=== PATIENT | male | born 1955 | race Caucasian/White ===

== ENCOUNTER 2022-08-29 10:20 | Outpatient (CLI) | payer MEDICARE, OTHER, SELFPAY ==
--- OUTSIDE RECORDS SUMMARY | 2022-08-29 10:22 | XMS_ITS | Encounter Summary ---
:1955 Author Care Team Providers Name Role Phone Chetanumesh Khadar AVALOS Primary Care Provider [phone] Reason for Visit Follow up - Review Pathology Results; Te sandra Visit Assessment and Plan Assessment Note Of note a total of 20 minutes was spent : preparing to see the patient by reviewing records, images, and laboratory data; obtaining/reviewing separately obtained history; performing physical examination , counseling and educating patient/famil y/caregiver; ordering appropriate medications, labs, imaging or procedures; documenting the clinical encounter; and coordination of care. 1. Raised prostate specific antigen - Pathology revealed single core of ASA P (all others benign) - No issues with biopsy - Recommend active surveillance protocol with PSA Q6 months, Prostate MRI Q18 months, and Prostate biopsy Q3-5 years. Discussion Note: None recorded.Patient educational handouts: No information available. Plan of Care Reminders Provider Appointments Established 10 on or around 12/27/2022 Chet Padron MD Lab None recorded. ? ? Referral None recorded. ? ? Procedures None recorded. ? ? Surgeries None recorded. ? ? Imaging None recorded. ? ? Medications Name Start Date ? ? aspirin ? atorvastatin ? atorvastatin 40 mg tablet ? TAKE ONE TABLET BY MOUTH AT BEDTIME LABS/PHYSICAL DUE FOR REFILLS azithromycin 250 mg tablet ? TAKE TWO TABLETS BY MOUTH ONE DOSE O N THE FIRST DAY, THEN TAKE ONE DAILY THEREAFTER. benzonatate 100 mg capsule ? TAKE ONE CAPSULE BY MOUTH THREE TIMES A DAY NEEDED ceftriaxone 1 gram solution for injection ? Take 1 g by injection route. ciprofloxacin 500 mg tablet ? TAKE ONE TABLET BY MOUTH TWICE A DAY codeine 10 mg-guaifenesin 100 mg/5 mL oral liquid ? TAKE 5-10 MLS BY MOUTH EVERY 6 HOURS diazepam 10 mg tablet ? TAKE 1 TABLET BY MOUTH 1 HOUR PRIOR TO MRI, DO NOT DR COMBS AFTER TAKING diazepam 2 mg tablet ? TAKE 1 TABLET BY MOUTH ONE HOUR PRIOR T O PROCEDURE, MAY TAKE ADDITIONAL TABLET IF NEEDED. hydrocodone 5 mg-acetaminophen 325 mg tablet ? TAKE ONE TO TWO TABLETS BY MOUTH EVERY 4 HOURS NEE DED [facility] COVID-19 Antigen Rapid Home Test kit ? USE DIRECTED ipratropium bromide 42 mcg (0.06 %) nasal spray ? INHALE 2 SPRAYS INTO BOTH NOSTRILS 3 TIMES A DAY lisinopril ? lisinopril 10 mg tablet ? TAKE ONE TABLET BY MOUTH EVERY DAY, APPOINTMENT DUE I N JUNE methylprednisolone 4 mg tablets in a dose pack ? TAKE DIRECTED minocycline ? minocycline 100 mg capsule ? TAKE ONE CAPSULE BY MOUTH TWICE A DAY . omeprazole ? omeprazole 20 mg capsule,delayed release ? ondansetron 4 mg disintegrating tablet ? DISSOLVE ONE TABLET BY MOUTH EVERY 6 HOURS NEEDED ondansetron HCl 4 mg tablet ? TAKE ONE TABLET BY MOUTH EVERY 6 HOURS NEEDED NAUS EA AND VOMITING prednisone 20 mg tablet ? TAKE TWO TABLETS BY MOUTH ONCE DAILY WITH A MEAL FOR 5 DAYS tamsulosin 0.4 mg capsule ? TAKE ONE CAPSULE BY MOUTH EVERY DAY Medications Administered None recorded. Vitals Height Weight BMI 5 ft 8 in 235 lbs 35.7 kg/m2 Results Lab Results None recorded. Allergies Code Code System Name Reaction Severity Onset 330347 RxNorm Bee Pollen ? ? ? NKDA ? ? ? Problems Name Status Onset Date Source ? 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 08/13/2012 Biopsy of Prostate Information not david collier Notes: 08/13/2012 - BIOPSY OF PROSTATE 08/13/2012 N Block Other Peripheral Information not available Notes: 08/13/2012 - N BLOCK OTHER SAMUEL PHERAL 07/26/2012 Us Urine Capacity Measure Information no t available Notes: 07/26/2012 - US URINE CAPACITY MEASURE ? Hernia Repair Information not david labveena Vaccine List None recorded. Social History Tobacco Smoking Status Former Smoker What was the date of your most recent tobacco 06/28/2022 screening? Do you or have you ever used e-cigarettes or Never used elec tronic cigarettes vape? Marital status Race White Functional Status Unknown. Past Encounters Encounter Date Diagnosis Provider 06/28/2022 Raised Prostate Specific Antigen Chet Padron MD: [address] [place] [address], Ph. 06/14/2022 Raised Prostate Specific Antigen Chet Padron MD: [address] [place] [address], Ph. History of Present Illness Note: <p>New patient referred for elevated PSA of 4.13 on 07/21/2020 at [facility]. His prior PSA was 2.97 in 2019. He was previously seen by Dr. Sami Silva in 2011 for PSA of 3.7, up from 1.65 in 2010. He had a 12 core biopsy that was benign at that time, prostate measured 23 g. He was noted to have a right base nodule on exam. He has no family history of prostate cancer. He had a right inguinal hernia repair with mesh but no prior abdominal surgeries. No bothersome urinary symptoms, nocturia x1-2.</p><div>06/14/2022 Vito:</div><div>Here for prostate biopsy for elevated PSA and elevated ExoDx. All questions answered.</div><div>
</div><div>06/28/2022:</div><div>Here for pathology review following prostate biopsy.</di v><div>
</div><div>
</div><div>This visit was conducted by telephone due to the COVID-19 crisis. Prior to conducting our telephone visit, the patient was apprised of the risks, benefits and alternatives to telephone visits including but not limited topoor audio quality, interrupted visits due to technological limitations, delays in medical evaluation and treatment due to deficiencies or failures of equipment, failure of security protocols resultingin a breach of privacy of personal medical information and a lack of access to complete medical records resulting in not fully informed decisions. Also, because of the COVID-19 pandemic, it was not possible for the patient to sign the privacy regulations, HIPAA release and assignment of benefits forms. The patient was given the opportunity to ask questions about these policies and gave verbal acknowle dgement and approval of these policies as well as to hold this meeting by telephone. Lastly, the patient agreed to allowing their medication history to be pulled from a national pharmacy database to facilitate and coordinate their care.</div><div>
</div> Review of Systems ? Comprehensive General Adult ROS Reported By: Patient Constitutional: Constitutional: no fever, no chills Eyes: Eyes: no dry eyes, no vision change, no irritation Endocrine: Endocrine: no fatigue, no in creased thirst Cardiovascular: Cardiovascular: no chest matt n, no palpitations Integumentary: Skin: no rashes, no change i n skin color Respiratory: Respiratory: no cough, no sh ortness of breath, wheezing Gastrointestinal: Gastrointestinal: no abdomin al pain, no nausea, no vomiting, no constipation, no GERD Musculoskeletal: Musculoskeletal: no neck matt n, no back pain Neurologic: Neurologic: no tremor, no di zziness, no numbness, no headaches Genitourinary: Genitourinary: no incontinen ce, no difficulty urinating ENMT: Ears: no ear pain. Mouth/Thr oat: no sore throat Allergic/Immunologic: Allergy/Immunologic: no itch ing, no hives Hematologic/Lymphatic: Hematologic/Lymphatic no swo llen glands, no excessive bleeding Psychiatric: Psych: no hallucinations, (n ormal) sleep disturbances: mismatch of sleep / wake justine edule with lifestyle needs Physical Exam None recorded.
--- OUTSIDE RECORDS SUMMARY | 2022-08-29 10:22 | XMS_ITS ---
:1955 Author Care Team Providers Name Role Phone JUAN JOSE ONEIDA AVALOS Primary Care Provider [phone] Allergies Code Code System Name Reaction Severity Status Onset 521027 RxNorm Bee Pollen ? ? Active ? NKDA ? Medications Name Status Start Date Stop Date ? ? aspirin Active ? Not available atorvastatin Active ? Not available atorvastatin 40 mg tablet Active ? Not av ailable azithromycin 250 mg tablet Active ? Not a vailable TAKE TWO TABLETS BY MOUTH ONE DOSE O N THE FIRST DAY, THEN TAKE ONE DAILY THEREAFTER. benzonatate 100 mg capsule Active ? Not a vailable TAKE ONE CAPSULE BY MOUTH THREE TIMES A DAY NEEDED ceftriaxone 1 gram solution for injection Active ? Not available Take 1 g by injection route. ciprofloxacin 500 mg tablet Active ? Not available TAKE ONE TABLET BY MOUTH TWICE A DAY codeine 10 mg-guaifenesin 100 mg/5 mL oral liquid Active ? Not available TAKE 5-10 MLS BY MOUTH EVERY 6 HOURS diazepam 10 mg tablet Active ? Not availa ble TAKE 1 TABLET BY MOUTH 1 HOUR PRIOR TO MRI, DO NOT DRIVE AFTER TAKING diazepam 2 mg tablet Active ? Not availab le TAKE 1 TABLET BY MOUTH ONE HOUR PRIOR T O PROCEDURE, MAY TAKE ADDITIONAL TABLET IF NEEDED. hydrocodone 5 mg-acetaminophen 325 mg tablet Active ? Not available TAKE ONE TO TWO TABLETS BY MOUTH EVERY 4 HOURS NEEDED [facility] COVID-19 Antigen Rapid Home Test kit Active ? Not available USE DIRECTED ipratropium bromide 42 mcg (0.06 %) nasal spray Active ? Not available INHALE 2 SPRAYS INTO BOTH NOSTRILS 3 TIMES A DAY lisinopril Active ? Not available lisinopril 10 mg tablet Active ? Not avai lable methylprednisolone 4 mg tablets in a dose pack Active ? Not available TAKE DIRECTED minocycline Active ? Not available minocycline 100 mg capsule Active ? Not a vailable omeprazole Active ? Not available omeprazole 20 mg capsule,delayed release Active ? Not available ondansetron 4 mg disintegrating tablet Active ? Not available DISSOLVE ONE TABLET BY MOUTH EVERY 6 HOURS NEEDED ondansetron HCl 4 mg tablet Active ? Not available TAKE ONE TABLET BY MOUTH EVERY 6 HOURS NEEDED NAUSEA AND VOM ITING prednisone 20 mg tablet Active ? Not avai lable TAKE TWO TABLETS BY MOUTH ONCE DAILY WITH A MEAL FOR 5 DAYS tamsulosin 0.4 mg capsule Active ? Not av ailable TAKE ONE CAPSULE BY MOUTH EVERY DAY Problems Name Status Onset Date Source ? 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 08/13/2012 Biopsy of Prostate Information not avai lable Notes: 08/13/2012 - BIOPSY OF PROSTATE 08/13/2012 N Block Other Peripheral Information not available Notes: 08/13/2012 - N BLOCK OTHER SAMUEL PHERAL 07/26/2012 Us Urine Capacity Measure Information no t available Notes: 07/26/2012 - US URINE CAPACITY MEASURE ? Hernia Repair Information not avai lable 08/25/2020 MRI, Prostate, W/wo Contrast [facility] [address] [place] [address] (Work Place) Results Lab Results Date Name Specimen Result Interpretation Description Value Range Status Address ? 08/27/2020 PSA, Serum or Plasma ? No observation recor ded. ? ? ? 08/27/2020 PSA, Serum or Plasma ? No observation recor ded. ? ? ? Past Encounters Encounter Date Diagnosis Provider 06/28/2022 Raised Prostate Specific Antigen Chet Padron MD: [address] [place] [address], Ph. 06/14/2022 Raised Prostate Specific Antigen Chet Padron MD: [address] [place] [address], Ph. 04/24/2022 Raised Prostate Specific Antigen Chet Padron MD: [address] [place] [address], Ph. Social History Tobacco Smoking Status Former Smoker Vaccine List None recorded. Plan of Care Patient Instructions Follow up on ExoDx with Dr. Padron Reminders Provider Appointments None recorded. ? ? Lab None recorded. ? ? Referral None recorded. ? ? Procedures None recorded. ? ? Surgeries None recorded. ? ? Imaging None recorded. ? ? Vitals 06/28/2022 04:00PM ESTABLISHED PHONE VISIT 20 Height Weight BMI 5 ft 8 in 235 lbs 35.7 kg/m2 08/23/2020 09:00AM NEW PATIENT 20 Height Weight BMI 5 ft 8 in 235 lbs 35.7 kg/m2
--- OUTSIDE RECORDS SUMMARY | 2022-08-29 10:22 | XMS_ITS | Clinical Summary ---
:1955 Author Organization [employer] [place] [address] Care Team Providers Name Role Phone Parmjit Hawkins Unavailable Luis Farmer MD Primary Care Provider [phone] Allergies Active Allergy Reactions Severity Noted Date Comments Bee Pollen Anaphylaxis 04/12/2006 Bee sting Medications Medication Sig Dispensed Refills Start Date End Date Status MULTIVITAMIN ORAL qd 0 Ac tive ASPIRIN 81 MG CHEWABLE chew 1 tablet 0 Active TAB (81mg) by oral route once daily ergocalciferol (VITAMIN take 2 1/2 0 09/15/2009 Active D) 400 unit tablet tablets by oral route once daily folic acid 400 mcg Take 1 tablet 0 08/23/2011 Active tablet by mouth once daily. tadalafil (CIALIS) 5 mg Take 1 tablet 30 tablet 6 02/22/2016 Active tabletIndications: by mouth once Erectile dysfunction, daily if needed unspecified erectile for Erectile dysfunction type Dysfunction. Take 30 minutes before sexual activity. omeprazole (PRILOSEC) Take 1 capsule 90 capsule 2 02/22/2016 Active 40 mg Delayed-Release by mouth once capsuleIndications: daily. Gastroesophageal reflux disease without esophagitis fluticasone (50 mcg per Inhale 1 [place] 1 Bottle 12 10/09/2016 Active actuation) nasal into both solution nostrils once (FLONASE)Indications: daily. At Seasonal allergic bedtime rhinitis, unspecified allergic rhinitis trigger minocycline (MINOCIN) TAKE ONE 180 capsule 0 02/19/2019 Active 100 mg CAPSULE BY capsuleIndications: MOUTH TWICE A Acne, unspecified acne DAY type lisinopril (PRINIVIL; TAKE ONE TABLET 30 tablet 0 03/11/2019 Active ZESTRIL) 10 mg BY MOUTH EVERY tabletIndications: HTN DAY (hypertension) atorvastatin (LIPITOR) TAKE ONE TABLET 30 tablet 0 04/01/2019 Active 40 mg BY MOUTH EVERY tabletIndications: DAY Mixed hyperlipidemia ipratropium (ATROVENT Inhale 2 Sprays 15 mL 0 11/23/2019 Active NASAL) 42 mcg (0.06 %) into both nasal sprayIndications: nostrils 3 Viral URI with cough, times daily. PND (post-nasal drip) ondansetron (ZOFRAN) 4 Take 10 mL by 250 mL 0 02/25/2020 Active mg/5 mL oral solution mouth every 8 hours if needed for nausea for 5-7 days Active Problems Problem Noted Date Elevated glucose 02/09/2017 Hyperkalemia 02/09/2017 Acne vulgaris 10/09/2016 Herpes labialis 10/09/2016 Vitamin D deficiency 11/20/2012 Inguinal hernia 11/20/2012 Numbness and tingling in left arm 06/11/2012 Erectile dysfunction 08/23/2011 HTN (hypertension) 11/08/2009 Mixed hyperlipidemia 02/02/2009 Overview: The 10-year ASCVD risk score (Ellsworth BIB Jr , et al., 2013) is: 10.8% Values used to calculate the score: Age: 61 years Sex: Male Is Non- : No Diabetic: No Tobacco smoker: No Systolic Blood Pressure: 118 mmHg Is BP treated: Yes HDL Cholesterol: 43 mg/dL Total Cholesterol: 226 mg/dL Adjustment disorder with depressed mood 12/16/2008 Need for prophylactic vaccination with combined 2008 igxirvitum-uxvwmfn-tiewelepu (DTP) vaccine Mole (skin) 12/16/2008 Resolved Problems Problem Noted Date Resolved Date Screening PSA (prostate specific antigen) 12/16/2008 02/09/2017 Tobacco use disorder 04/12/2006 11/08/2009 Encounters Date Type Specialty Care Team Description 07/10/2022 Orders Only Scanner <No scans attac hed> from Last 3 Months Immunizations Name Administration Dates Next Due Influenza A (H1N1), Inactivated (Age >=3 09/15/2009 Years) Influenza, IIV3 (Age >=3 years) 06/11/2012, 06/16/2011, 05/25 Influenza, IIV4 10/09/2016 Pneumococcal Poly,23-Valent (Pneumovax) 02/05/2004 Td (Age >=7 Years) 02/05/2004 Tdap 12/16/2008 Family History Medical History Relation Name Comments Hyperlipidemia Father Hypertension Father Stroke Father Cancer Maternal Grandmother Cancer Mother leukemia Stroke Mother Other Other Diabetes on mate rnal side Cancer Paternal Grandmother Relation Name Status Comments Father (Age 77) Maternal Grandmother Mother (Age 72) Other Paternal Grandmother Social History Tobacco Use Types Packs/Day Years Used Date Former Smoker Cigarettes 1 09/24/1967 - 0 02/10/2009 Smokeless Tobacco: Never Used Tobacco Cessation: Counseling Given: Yes Alcohol Use Standard Drinks/Week Comments Yes 1.7 (1 standard drink = 0.6 oz pure alco hol) social Sex Assigned at Date Recorded Not on file Obstetrics History Last Filed Vital Signs Vital Sign Reading Time Taken Comments Blood Pressure 137/83 04/05/2022 8:54 AM CDT Pulse 61 04/05/2022 8:54 AM CDT Temperature 36.4 ??C (97.6 ??F) 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 Height 172.7 cm (5' 8) 02/01/2018 1:12 PM CDT Body Mass Index 33.86 02/01/2018 1:12 PM CDT Plan of Treatment Health Maintenance Due Date Last Done Comments HIV for age 15-65 1971 Hepatitis C screening for age 1108/18/1974 18-79 Pneumococcal series for age 65+ (2 02/04/2005 02/05/2004 - PCV) Zoster (shingles) series for age 1108/18/2006 50+ (1 of 2) AAA screening age 55-77 2011 Tetanus booster 12/16/2018 12/16/2008, 02/05/2004 BMI (ht and wt on same day) for 02/01/2019 02/01/2018, 08/0 03/2017, age 18+ 10/09/2016, Additional history exists Depression screening for age 12+ 02/01/2019 02/01/2018, Medicare Wellness for age 65+ 2021 COVID-19 vaccine series (4 - 10/02/2021 08/07/2021, 021, Booster for Moderna series) 11/24/2020 Influenza for age 65+ 05/25/2022 10/09/2016, 06/11/2012, 06/16/2011, Additional history exists Lipids for age 45-75 02/01/2023 02/01/2018, 04/30/2017, 02/08/2017, Additional history exists Colonoscopy through age 75 01/12/2025 01/12/2015, 9 Tdap Completed 12/16/2008 Procedures Procedure Name Priority Date/Time Associated Diagnosis Comme nts SCAN 07/10/2022 12:00 AM Results for this CORRESP-LABORATORY CDT procedure are in RESULTS the results section. from Last 3 Months Results SCAN CORRESP-LABORATORY RESULTS (07/10/2022 12:00 AM CDT) Narrative This result has an attachment that is no t available. Scanner OTHER from Last 3 Months Insurance Payer Benefit Plan / Subscriber ID Effective Dates Phone Addre ss Type Group MEDICARE - PB MEDICARE PB [id number] 2021-Presen ATT N: CLAIMS USE ONLY ONLY t [address] [place] [address] [facility] [employer] 09/24/1978 [address] [employer] [place] ES[place]EN (Home) [id number] ATTN A/P [phone] [address] [address] (Work) [place] [address] Advance Directives Latest Code Status on File Code Status Date Activated Date Inactivated Comments Full Code 01/18/2015 6:27 AM 01/18/2015 1:59 PM Care Teams Disease Case Manager Relationship Specialty Start Date End Date Luis Farmer MD PCP - General Family Practice 08/10/[address] [place] [address] Parmjit Hawkins Dermatology Dermatology 11/04/[address] [place] [address] [address] [place], [place] [id number]
--- OUTSIDE RECORDS SUMMARY | 2022-08-29 10:23 | XMS_ITS | Encounter Summary ---
:1955 Author Care Team Providers Name Role Phone Lauren AVALOS Primary Care Provider [phone] Reason for Visit TRUS biopsy Assessment and Plan 1. Raised prostate specific antigen - Now s/p TRUS biopsy - Phone visit in 2 weeks for pathology d iscussion - We reviewed the limitations of this in cluding under sampling which may lead to under diagnosis. We also reviewed the risks most notably bleeding to a degree enough to require intervention (1-2.5%) and infection which may result in hospitali zation (1-3%). We also discussed expected after effects of biopsy including temporary hematuria, blood per rectum, and hematospermia which are considered normal after this procedure. ? ceftriaxone 1 gram solution for injec tion Discussion Note: None recorded.Patient educational handouts: No [...] BY MOUTH EVERY DAY, APPOINTMENT DUE I June methylprednisolone 4 mg tablets in a dose [...] CAPSULE BY MOUTH EVERY DAY Medications Administered Name Date ? ? ceftriaxone 1 gram solution for injection 2022-06-14 T15:33:35 Take 1 g by injection route. Notes: BS Vitals None recorded. Results Lab Results None recorded. Allergies Code Code System Name Reaction Severity Onset 208247 RxNorm Bee Pollen ? ? ? NKDA [...] MEASURE ? Hernia Repair Information not david collier Vaccine List None recorded. Social History Tobacco Smoking Status Former Smoker What was the date of your most recent tobacco 06/28/2022 screening? Do you or have you ever used e-cigarettes or Never used elec tronic cigarettes vape? Marital status Race White Functional Status Unknown. Past Encounters Encounter Date Diagnosis Provider 06/14/2022 Raised Prostate Specific Antigen Chet Padron MD: [address] [facility] [place] [address], Ph. History of Present Illness Note: <p>New patient referred for elevated PSA of 4.13 on 07/21/2020 at [facility]. His prior PSA was 2.97 in 2019. [...] elevated PSA and elevated ExoDx. All questions answered.</div> Review of Systems None recorded. Physical Exam None recorded.
[2022-08-29 14:11] LABS: Albumin* 4.5 g/dL (3.3-5.0); Chloride* 106 mmol/L (96-114)
[2022-08-29 14:12] LABS: Potassium* 5.1 mmol/L (3.6-5.1); Sodium* 141 mmol/L (135-149)
[2022-08-29 14:14] LABS: Alkaline Phosphatase* 90 U/L (40-150); Aspartate Amino Transferase* 38 U/L (12-35); Bilirubin Total* 0.6 mg/dL (0.1-1.5); Blood Urea Nitrogen* 23 mg/dL (7-30); Carbon Dioxide* 28 mmol/L (20-32); Cholesterol* 211 mg/dL (90-199); Creatinine* 0.9 mg/dL (0.5-1.5); Estimated Glomerular Filt Rate 94 ml/min; Glucose* 95 mg/dL (60-115); Total Protein* 6.9 g/dL (6.0-8.3)
[2022-08-29 14:15] LABS: Alanine Aminotransferase* 46 U/L (4-50); Calcium* 9.9 mg/dL (8.4-10.6); HDL Cholesterol* 39 mg/dL (>=40); LDL Cholesterol Calculated 126 mg/dL (<100); Triglycerides* 230 mg/dL (40-149)
== END 2022-08-29 10:21 | disposition home or self-care (01) ==
PROVIDERS: PCP Physician Assistant Medical; Visit Provider Physician Assistant Medical
DX: Z00.00 Encounter for general adult medical examination without abnormal findings (principal); I10 Essential (primary) hypertension; E78.5 Hyperlipidemia, unspecified; E55.9 Vitamin D deficiency, unspecified
CPT/HCPCS: 80053; 80061

== ENCOUNTER 2023-03-01 08:26 | Outpatient (CLI) | payer MEDICARE, OTHER, SELFPAY | END 2023-03-01 08:27 | disposition home or self-care (01) | LOC: NFLDREF 03-04 10:43 | PROVIDERS: PCP Physician Assistant Medical; Referring Provider Physician Assistant Medical; Visit Provider Physician Assistant Medical | DX: I10 Essential (primary) hypertension (principal) | CPT/HCPCS: 80048 ==

== ENCOUNTER 2023-04-17 07:55 | Outpatient (CLI) | payer MEDICARE, OTHER, SELFPAY | END 2023-04-17 07:56 | disposition home or self-care (01) | LOC: NFLDREF 04-18 11:15 | PROVIDERS: PCP Physician Assistant Medical; Referring Provider Physician Assistant Medical; Visit Provider Family Medicine | DX: I10 Essential (primary) hypertension (principal); R10.32 Left lower quadrant pain | CPT/HCPCS: 82043; 82570 ==

== ENCOUNTER 2023-06-27 09:19 | Outpatient (CLI) | payer MEDICARE, OTHER, SELFPAY | END 2023-06-27 09:20 | disposition home or self-care (01) | LOC: FRMREF 09:19 | PROVIDERS: PCP Family Medicine; Visit Provider Family Medicine | DX: Z01.818 Encounter for other preprocedural examination (principal); I10 Essential (primary) hypertension | CPT/HCPCS: 80048 ==

== ENCOUNTER 2023-10-25 10:04 | Outpatient (CLI) | payer MEDICARE, OTHER, SELFPAY ==
--- OUTSIDE RECORDS SUMMARY | 2023-10-25 10:07 | XMS_ITS | Encounter Summary ---
Author Name Unknown Organization [facility] Address [address] [place] [id number] Care Team Providers Care Dry Box Tender Name Role Phone No Ref-Primary, Physician Primary Care Provider Reason for Visit * Auth/Cert (Routine) Specialty Diagnoses / Procedures Referred By Demario crawford Referred To Contact Surgery Diagnoses Prostate cancer (H) Prostate cancer (H) [C61] Procedures [place] LAPAROSCOPY, SURGICAL; W/ BILAT TOTAL PELVIC LYMPHADENECTOMY [place] LAPAROSCOPY, SURGICAL PROSTATECTOMY, RETROPUBIC RADICAL, W/NERVE SPARING ZZPR LAPS SURG ARUI1QON SMPL STOT ROBOTIC ASSISTANCE ROBOTIC ASSISTED LAPAROSCOPIC PROSTATECTOMY AND PELVIC LYMPH NODE DISSECTION Periop Services [address], [address] [place] [address] Referral ID Status Reason Start Date Expiration Date Visits Re quested Visits Authorized [id number] 1 1 Encounter Details Date Type Department Care Team (Late st Contact Info) Description 07/10/2023 7:42 AM CDT Anesthesia Event [facility] PeriOP Services [address], [address] [place] [address] Royce Arnold DO [facility]EST[facility] [address] [place] [id number] Anesthesia Record Procedure Summary Procedure Name Responsible Anesthesiologist Anesthesia Start Time Anesthesia Stop Time ROBOTIC ASSISTED LAPAROSCOPIC PROSTATECTOMY AND PELVIC LYMPH NODE DISSECTION (Pelvis) Royce Arnold DO 07/10/23 0742 07/10/23 1256 Events Date Time Event Comment 07/10/2023 0717 MUSIC THERAPY SPECIALIST Ready for Procedure 0742 An Start 0742 An Start Data 0742 AN REASSESS I attest that I have identified and re-evaluated the patient immediately before the induction of anesthesia and I am satisfied that the anesthetic plan is suitable for the patient's condition and procedure. The first vital signs recorded are pre- induction. Mary Craig APRN MUSIC THERAPY SPECIALIST 0746 An Induction 0749 An Intubation 0754 Anesthesia Ready for Procedu re 0823 AN INCISION 0958 MD Present 1248 AN Extubation All extubation criteria met prior to removal. 1249 an stop data 1256 An Stop Electronically signed by Mary Craig APRN MUSIC THERAPY SPECIALIST on July 10, 2023 12:56 PM Meds Name Total midazolam 1 mg/mL 2 mg fentaNYL 50 mcg/mL 100 mcg HYDROmorphone 1 mg/mL 1 mg lidocaine 2% 100 mg propofol 10 mg/mL 200 mg phenylephrine (BALJIT-SYNEPHRINE) injection 500 mcg dexamethasone (DECADRON) 4 mg/mL 4 mg ondansetron 2 mg/mL 4 mg sugammadex (BRIDION) 200mg/2mL 200 mg ceFAZolin Sodium (ANCEF) injection 2 g 4 g vecuronium 1 mg/mL 28 mg dexMEDetomidine (PRECEDEX) 4 mcg/ml in N aCl 25mL 20 mcg phenylephrine 0.1 mg/mL infusion (mcg/kg /min) 1.43 mg lactated ringers infusion 2,000 mL * Agents Name NO HELIOX O2 N2O Air Exp Sevoflurane Exp Isoflurane Exp Desflurane Exp N2O O2 Delivery Device Ins Sevoflurane Ins Isoflurane Ins Desflurane O2 Auxiliary * Blood No blood administrations on file. Lines, Drains, and Airways Type Details Placement Removal Incision/Surgical Site 07/10/23; 1223; Abdomen; 5 ports, 1 mini lap with dermbond 07/10/23 1223 by Gissel Gamble, RN Peripheral IV 07/10/23; 0614; 18 G ; Left, Posterior; Hand; None; 1 07/10/23 0614 by Demi Ibrahim, RAN 07/11/23 1255 by Inpatient, Nurse ETT Placement Date: 07/10/23; Placement Time: 0749 (created via procedure documentation); Mask Ventilation: 1; Induction Type: Intravenous; Ease of Intubation: Easy (with VL); Technique: Video laryngoscopy; ETT Type: Single, Oral; Tube Size: 8 mm; VL Blade Size: Lincoln scope 4; Grade View: 1; Adjucts: Stylet; Placement Person: MUSIC THERAPY SPECIALIST; Attempts: 1; Depth: 23 cm 07/10/23 0749 by Mary Craig APRN CRNA 07/10/23 1248 by Mary Craig APRN CRNA Peripheral IV 07/10/23; 0751; 18 G ; (jelco); Right; Lower forearm; None; 1 07/10/23 0751 by Mary Craig APRN CRNA 07/11/23 1255 by Inpatient, Nurse Gastric Tube 07/10/23; 0757; Decompression; Respiratory status unchanged, Aspiration of gastric content 07/10/23 0757 by Mary Craig APRN CRNA 07/10/23 1221 by Mary Craig APRN CRNA Urethral Catheter 07/10/23; 0823; No; /GI/GROCERY SHOPPER Pelvic Procedure; 18 fr 07/10/23 0823 by Gissel Gamble RN 07/11/23 1255 by Inpatient, Nurse documented in this encounter Social History Tobacco Use Types Packs/Day Years Used Date Smoking Tobacco: Former Smokeless Tobacco: Never Alcohol Use Standard Drinks/Week Comments Yes 0 (1 standard drink = 0.6 oz pur e alcohol) glass of wine everyday Adolescent Education Answer Date Record ed Getting School Help Needed Not on file 06/16 Sex and Gender Information Value Date Recorded Sex Assigned at Not on file Gender Identity Not on file Sexual Orientation Not on file documented as of this encounter OR Notes * Anesthesia Postprocedure Evaluation - Royce Arnold DO - 07/10/2023 3:07 PM CDT Patient: Marco Antonio Watkins Procedure: Procedure(s): ROBOTIC ASSISTED LAPAROSCOPIC PROSTATECTOMY AND PELVIC LYMPH NODE DISSECTION Anesthesia Type: General Note: Disposition: Inpatient Postop Pain Control: Uneventful Sign Out: Well controlled pain PONV: No Neuro/Psych: Uneventful Sign Out: Acceptable/Baseline neuro status Airway/Respiratory: Uneventful Sign Out: Acceptable/Baseline resp. status CV/Hemodynamics: Uneventful Sign Out: Acceptable CV status; No obvious hypovolemia; No obvious fluid overload Other NRE: NONE DID A NON-ROUTINE EVENT OCCUR? No Last vitals: Vitals Value Taken Time BP 133/63 07/10/23 1445 Temp 36.7 ??C (98 ??F) 07/10/23 1430 Pulse 94 07/10/23 1448 Resp 20 07/10/23 1446 SpO2 97 % 07/10/23 1446 Vitals shown include unfiled device data. Electronically Signed By: Royce Arnold DO July 10, 2023 4:18 PM * Anesthesia Procedure Notes - Mary Craig APRN MUSIC THERAPY SPECIALIST - 07/10/2023 8:11 AM CDTAssociated Order(s): Airway Airway Patient location during procedure: OR Procedure Start/Stop Times: 07/10/2023 7:49 AM Staff - Anesthesiologist: Royce Arnold DO MUSIC THERAPY SPECIALIST: Mary Craig APRN MUSIC THERAPY SPECIALIST Performed By: MUSIC THERAPY SPECIALIST Consent for Airway Urgency: elective Indications and Patient Condition Indications for airway management: kwan-procedural Induction type:intravenous Mask difficulty assessment: 1 - vent by mask Final Airway Details Final airway type: endotracheal airway Successful airway: ETT - single and Oral Endotracheal Airway Details ETT size (mm): 8.0 Cuffed: yes Successful intubation technique: video laryngoscopy VL Blade Size: Glidescope 4 Grade View of Cords: 1 Adjucts: stylet Position: Right Measured from: gums/teeth Secured at (cm): 23 Bite block used: None Post intubation assessment Placement verified by: capnometry, equal breath sounds and chest rise Number of attempts at approach: 1 Number of other approaches attempted: 0 Secured with: silk tape Ease of procedure: easy (with VL) Dentition: Intact and Unchanged Medication(s) Administered Medication Administration Time: 07/10/2023 7:49 AM * Anesthesia Preprocedure Evaluation - Royce Arnold DO - 07/10/2023 5:48 AM CDT Anesthesia Pre-Procedure Evaluation Patient: Marco Antonio Watkins : 1955 Procedure : Procedure(s): ROBOTIC ASSISTED LAPAROSCOPIC PROSTATECTOMY AND PELVIC LYMPH NODE DISSECTION Past Medical History: Diagnosis Date Acne Allergic rhinitis Calculus of kidney COPD (chronic obstructive pulmonary disease) (H) Erectile dysfunction Gastroesophageal reflux disease High prostate specific antigen (PSA) HTN (hypertension) 03/31/2014 Hx of bronchitis Hyperlipidemia LDL goal < 130 03/31/2014 Obese Sleep apnea CPAP Spinal stenosis Vitamin D deficiency Past Surgical History: Procedure Laterality Date HERNIA REPAIR No Known Allergies Social History Tobacco Use Smoking status: Former Smokeless tobacco: Never Substance Use Topics Alcohol use: Yes Wt Readings from Last 1 Encounters: 03/31/14 90.3 kg (199 lb) Anesthesia Evaluation Pt has had prior anesthetic. No history of anesthetic complications ROS/MED HX ENT/Pulmonary: (+) sleep apnea, uses CPAP, FLAKITO risk factors, hypertension, obese, allergic rhinitis, tobacco use, Past use, Neurologic: (-) no seizures, no CVA, no TIA and migraines Cardiovascular: (+) Dyslipidemia hypertension- - - - - (-) CAD, arrhythmias, irregular heartbeat/palpitations, valvular problems/murmurs, PVD and stent METS/Exercise Tolerance: Hematologic: Musculoskeletal: (+) arthritis, GI/Hepatic: (+) GERD, Asymptomatic on medication, Renal/Genitourinary: (+) renal disease, type: CRI, Nephrolithiasis , BPH, Endo: Comment: Pre-diabetes (+) Obesity, (-) Type II DM and thyroid disease Psychiatric/Substance Use: (-) alcohol abuse history Infectious Disease: Malignancy: (+) Malignancy, History of Prostate.Prostate CA Active status post. Other: Physical Exam Airway Mallampati: III TM distance: > 3 FB Neck ROM: full Mouth opening: > 3 cm Respiratory Devices and Support Dental no notable dental history (+) Minor Abnormalities - some fillings, tiny chips Cardiovascular cardiovascular exam normal Pulmonary pulmonary exam normal breath sounds clear to auscultation OUTSIDE LABS: CBC: No results found for: WBC, HGB, HCT, PLT BMP: Lab Results Component Value Date NA 142 03/31/2014 POTASSIUM 5.0 03/31/2014 CHLORIDE 106 03/31/2014 CO2 26 03/31/2014 BUN 17 03/31/2014 CR 1.06 03/31/2014 GLC 102 (H) 03/31/2014 COAGS: No results found for: PTT, INR, FIBR POC: No results found for: BGM, HCG, HCGS HEPATIC: Lab Results Component Value Date ALBUMIN 4.4 03/31/2014 PROTTOTAL 7.5 03/31/2014 ALT 27 03/31/2014 AST 34 03/31/2014 ALKPHOS 79 03/31/2014 BILITOTAL 0.7 03/31/2014 OTHER: Lab Results Component Value Date MARGARET 9.7 03/31/2014 Anesthesia Plan ASA Status: 3 NPO Status: NPO Appropriate Anesthesia Type: General. - Airway: ETT Induction: Intravenous. Maintenance: Balanced. Techniques and Equipment: - Airway: Video-Laryngoscope Consents Anesthesia Plan(s) and associated risks, benefits, and realistic alternatives discussed. Questions answered and patient/consumer sales representative(s) expressed understanding. - Discussed: - Discussed with: Patient - Extended Intubation/Ventilatory Support Discussed: No. - Patient is DNR/DNI Status: No Use of blood products discussed: Yes. - Discussed with: Patient. - Consented: consented to blood products Reason for refusal: other. Postoperative Care Pain management: IV analgesics, Oral pain medications, Multi-modal analgesia. PONV prophylaxis: Ondansetron (or other 5HT-3), Dexamethasone or Solumedrol, Background Propofol Infusion Comments: Royce Arnold DO documented in this encounter Miscellaneous Notes * Anesthesia Care Transfer Note - Mary Craig APRN MUSIC THERAPY SPECIALIST - 07/10/2023 12:56 PM CDT Patient: Marco Antonio Watkins Procedure: Procedure(s): ROBOTIC ASSISTED LAPAROSCOPIC PROSTATECTOMY AND PELVIC LYMPH NODE DISSECTION Diagnosis: Prostate cancer (H) [C61] Diagnosis Additional Information: No value filed. Anesthesia Type: General Note: Oropharynx: oropharynx clear of all foreign objects and spontaneously breathing Level of Consciousness: drowsy Oxygen Supplementation: face mask Level of Supplemental Oxygen (L/min / FiO2): 6 Independent Airway: airway patency satisfactory and stable Dentition: dentition unchanged Vital Signs Stable: post-procedure vital signs reviewed and stable Report to RN Given: handoff report given Patient transferred to: PACU Handoff Report: Identifed the Patient, Identified the Reponsible Provider, Reviewed the pertinent medical history, Discussed the surgical course, Reviewed Intra-OP anesthesia mangement and issues during anesthesia, Set expectations for post-procedure period and Allowed opportunity for questions andacknowledgement of understanding Vitals: Vitals Value Taken Time BP Temp Pulse 81 07/10/23 1254 Resp 22 07/10/23 1254 SpO2 99 % 07/10/23 1254 Vitals shown include unfiled device data. Electronically Signed By: Mary Craig APRN CRNA July 10, 2023 12:56 PM documented in this encounter Plan of Treatment Not on file documented as of this encounter Procedures Procedure Name Priority Date/Time Associated Diagnosis Comments ANE AIRWAY ETT PERFORMABLE Routine 07/10/2023 7:49 AM CDT documented in this encounter Results * ANE AIRWAY ETT PERFORMABLE (07/10/2023 7:49 AM CDT) Narrative Mary Craig APRN CRNA - 07/10/2023 7:49 AM CDT Mary Craig APRN CRNA ? 07/10/2023 ??8:12 AM Airway ? Patient location during procedure: OR ? Procedure Start/Stop Times: 07/10/2023 7:49 AM Staff - ? Anesthesiologist: ??Royce Arnold, DO ? MUSIC THERAPY SPECIALIST: Mary Craig APRN CRNA ? Performed By: MUSIC THERAPY SPECIALIST Consent for Airway ? Urgency: elective Indications and Patient Condition ? Indications for airway management: kwan-procedural ? Induction type:intravenous ? Mask difficulty assessment: 1 - vent by mask Final Airway Details ? Final airway type: endotracheal airway ? Successful airway: ETT - single and Oral Endotracheal Airway Details ? ETT size (mm): 8.0 ? Cuffed: yes ? Successful intubation technique: video laryngoscopy ? VL Blade Size: Glidescope 4 ? Grade View of Cords: 1 ? Adjucts: stylet ? Position: Right ? Measured from: gums/teeth ? Secured at (cm): 23 ? Bite block used: None Post intubation assessment ? Placement verified by: capnometry, equal breath sounds and chest rise ? Number of attempts at approach: 1 ? Number of other approaches attempted: 0 ? Secured with: silk tape ? Ease of procedure: easy (with VL) ? Dentition: Intact and Unchanged Medication(s) Administered Medication Administration Time: 07/10/2023 7:49 AM Royce Arnold DO [place] [facility] documented in this encounter Visit Diagnoses Not on filedocumented in this encounter Administered Medications Inactive Administered Medications - up to 3 most recent administrations Medication Order MAR Action Action Date Dose Rate Site ceFAZolin Sodium (ANCEF) injection 2 g Routine, 2 g, Intravenous, PRE-OP/PRE-PROCEDURE, Starting on Sun07/10/23 at 0546, For 1 dose, Give first dose within 1 hour PRIOR to incision. If patient weight is greater than or equal to 120 kg increase dose to 3 g., Indications: Perioperative Pharmacoprophylaxis, Pre-procedure $Given 07/10/2023 11:50 AM CDT 2 g $Given 07/10/2023 7:50 AM CDT 2 g dexAMETHasone (DECADRON) injection Intravenous, PRN, Administer over 1 Minutes, Starting on Sun07/10/23 at 0810, Anesthesia Intra-op $Given 07/10/2023 8:10 AM CDT 4 mg dexmedeTOMIDine (PRECEDEX) 4 mcg/mL infusion Intravenous, PRN, Starting on Sun07/10/23 at 0827, Anesthesia Intra-op $Given 07/10/2023 8:27 AM CDT 20 mcg fentaNYL (PF) (SUBLIMAZE) injection Intravenous, PRN, Administer over 3-5 Minutes, Starting on Sun07/10/23 at 0746, Anesthesia Intra-op $Given 07/10/2023 7:46 AM CDT 100 mcg HYDROmorphone (DILAUDID) injection Intravenous, PRN, Starting on Sun07/10/23 at 0905, Anesthesia Intra-op $Given 07/10/2023 12:39 PM CDT 0.5 mg $Given 07/10/2023 9:05 AM CDT 0.5 mg lactated ringers infusion at 10 mL/hr, Intravenous, CONTINUOUS, Pre-procedure, Starting on Sun07/10/23 at 0600, Until Sun07/10/23 at 1253 $New Bag 07/10/2023 12:08 PM CDT $New Bag 07/10/2023 8:50 AM CDT Restarted 07/10/2023 7:42 AM CDT lidocaine 2% injection (MDV) Intravenous, PRN, Starting on Sun07/10/23 at 0746, Anesthesia Intra-op $Given 07/10/2023 7:46 AM CDT 100 mg midazolam (VERSED) injection Intravenous, Administer over 2 Minutes, PRN, Starting on Sun07/10/23 at 0740, Anesthesia Intra-op $Given 07/10/2023 7:40 AM CDT 2 mg ondansetron (ZOFRAN) injection Intravenous, PRN, Administer over 2-5 Minutes, Starting on Sun07/10/23 at 1210, Anesthesia Intra-op $Given 07/10/2023 12:10 PM CDT 4 mg phenylephrine (BALJIT-SYNEPHRINE) injection Intravenous, CONTINUOUS PRN, Starting on Sun07/10/23 at 0800, Anesthesia Intra-op $Bolus 07/10/2023 10:34 A M CDT 100 mcg $Bolus 07/10/2023 10:29 AM CDT 100 mcg $Bolus 07/10/2023 10:12 AM CDT 100 mcg phenylephrine 0.1 mg/mL infusion (mcg/kg/min) Intravenous, CONTINUOUS PRN, Starting on Sun07/10/23 at 1046, Anesthesia Intra-op Rate/Dose Change 07/10/2023 11:16 AM CDT 0.1 mcg/kg/min 6.87 mL/hr Rate/Dose Change 07/10/2023 10:52 AM CDT 0.2 mcg/kg/min 13 .74 mL/hr $New Bag 07/10/2023 10:46 AM CDT 0.4 mcg/kg/min 27.48 mL /hr propofol (DIPRIVAN) injection 10 mg/mL vial Intravenous, PRN, Starting on Sun07/10/23 at 0746, Anesthesia Intra-op $Given 07/10/2023 7:46 AM CDT 200 mg sugammadex (BRIDION) injection Intravenous, PRN, Starting on Sun07/10/23 at 1236, Anesthesia Intra-op $Given 07/10/2023 12:36 PM CDT 200 mg vecuronium (NORCURON) injection Intravenous, PRN, Starting on Sun07/10/23 at 0747, Anesthesia Intra-op $Given 07/10/2023 12:02 PM CDT 2 mg $Given 07/10/2023 11:44 AM CDT 1 mg $Given 07/10/2023 11:16 AM CDT 2 mg documented in this encounter Care Teams Dry Box Tender Relationship Specialty Start Date End Date No Ref-Primary, Physician PCP - General 07/10/23 documented as of this encounter
--- OUTSIDE RECORDS SUMMARY | 2023-10-25 10:07 | XMS_ITS | Clinical Summary ---
Author Name Unknown Organization [email or web address] Address [place], [place] [address] Care Team Providers Care Cord Maker Name Role Phone Ross Parmjit Edwards Unavailable [phone] Luis Farmer MD Primary Care Provider + Allergies Active Allergy Reactions Criticality Noted Date Comments Bee Pollen Anaphylaxis 04/12/2006 Bee sting Medications Medication Sig Dispensed Refills Start Date End Date Status MULTIVITAMIN ORAL qd 0 Active ASPIRIN 81 MG CHEWABLE TAB chew 1 tablet (81mg) by oral route once daily 0 Active ergocalciferol (VITAMIN D) 400 unit tablet take 2 1/2 tablets by oral route once daily 0 09/15/2009 Active folic acid 400 mcg tablet Take 1 tablet by mouth once daily. 0 08/23/2011 Active tadalafil (CIALIS) 5 mg tabletIndications:Ere ctile dysfunction, unspecified erectile dysfunction type Take 1 tablet by mouth once daily if needed for Erectile Dysfunction. Take 30 minutes before sexual activity. 30 tablet 6 02/22/2016 Active omeprazole (PRILOSEC) 40 mg Delayed-Release capsuleIndications:Ga stroesophageal reflux disease without esophagitis Take 1 capsule by mouth once daily. 90 capsule 2 02/22/2016 Active fluticasone (50 mcg per actuation) nasal solution (FLONASE)Indications: Seasonal allergic rhinitis, unspecified allergic rhinitis trigger Inhale 1 Burna into both nostrils once daily. At bedtime 1 Bottle 12 10/09/2016 Active minocycline (MINOCIN) 100 mg capsuleIndications:Ac ne, unspecified acne type TAKE ONE CAPSULE BY MOUTH TWICE A DAY 180 capsule 0 02/19/2019 Active lisinopril (PRINIVIL; ZESTRIL) 10 mg tabletIndications:HTN (hypertension) TAKE ONE TABLET BY MOUTH EVERY DAY 30 tablet 0 03/11/2019 Active atorvastatin (LIPITOR) 40 mg tabletIndications:Mix ed hyperlipidemia TAKE ONE TABLET BY MOUTH EVERY DAY 30 tablet 0 04/01/2019 Active ipratropium (ATROVENT NASAL) 42 mcg (0.06 %) nasal sprayIndications:[place] l URI with cough,PND (post-nasal drip) Inhale 2 Sprays into both nostrils 3 times daily. 15 mL 0 11/23/2019 Active ondansetron (ZOFRAN) 4 mg/5 mL oral solution Take 10 mL by mouth every 8 hours if needed for nausea for 5-7 days 250 mL 0 02/25/2020 Active Active Problems Problem Noted Date Diagnosed Date Elevated glucose 02/09/2017 Hyperkalemia 02/09/2017 Acne vulgaris 10/09/2016 Herpes labialis 10/09/2016 Vitamin D deficiency 11/20/2012 Inguinal hernia 11/20/2012 Numbness and tingling in left arm 06/11/2012 Erectile dysfunction 08/23/2011 HTN (hypertension) 11/08/2009 Mixed hyperlipidemia 02/02/2009 Overview: The 10-year ASCVD risk score ([facility] BIB Jr, et al., 2013) is: 10.8% Values used to calculate the score: Age: 61 years Sex: Male Is Non- : No Diabetic: No Tobacco smoker: No Systolic Blood Pressure: 118 mmHg Is BP treated: Yes HDL Cholesterol: 43 mg/dL Total Cholesterol: 226 mg/dL Adjustment disorder with depressed mood 12/17/19 09 Need for prophylactic vaccin ation with combined fhifwnzske-sosybzh-ctjwfxlxx (DTP) vaccine 12/16/2008 Mole (skin) 12/16/2008 Resolved Problems Problem Noted Date Diagnosed Date Resolved Date Screening PSA (prostate specific antigen) 12/16/2008 02/09/2017 Tobacco use disorder 04/12/2006 010 Immunizations Name Administration Dates Next Due Influenza A (H1N1), Inactiva jerzy (Age >=3 Years) 09/15/2009 Influenza, IIV3 (Age >=3 years) 06/11/2012,06/16,06/08/2009 Influenza, IIV4 10/09/2016 Pneumococcal Poly,23-Valent (Pneumovax) 02/05/20 04 Td (Age >=7 Years) 02/05/2004 Tdap 12/16/2008 Family History Medical History Relation Name Comments Hyperlipidemia Father Hypertension Father Stroke Father Cancer Maternal Grandmother Cancer Mother leukemia Stroke Mother Other Other Diabetes on mat ernal side Cancer Paternal Grandmother Relation Name Status Comments Father (Age 77) Maternal Grandmother Mother (Age 72) Other Paternal Grandmother Social History Tobacco Use Types Packs/Day Years Used Date Smoking Tobacco: Former Cigarettes 1 41.4 0 09/24/1967 - 02/10/2009 Smokeless Tobacco: Never Tobacco Cessation:Counseling Given: Yes Alcohol Use Standard Drinks/Week Comments Yes 1.7 (1 standard drink = 0.6 oz p ure alcohol) social PHQ-2 Answer Date Recorded PHQ-2 Score 0 11/24/2018 Social Connections Answer Date Recorded Frequency of Communication with Friends and Fami ly Not on file 09/21/2021 Financial Resource Strain Answer Date R ecorded Difficulty of Paying Living Expenses Not on file 09/21/2021 Difficulty of Paying Living Expenses Not on file 09/21/2021 Sex and Gender Information Value Date Recorded Sex Assigned at Not on file Gender Identity Not on file Sexual Orientation Not on file Obstetrics History Last Filed Vital Signs Vital Sign Reading Time Taken Comments Blood Pressure 137/83 04/05/2022 8:54 AM CDT Pulse 61 04/05/2022 8:54 AM CDT Temperature 36.4 ??C (97.6 ??F) 11/23/2019 1 0:23 AM NURSES' REGISTRY DIRECTOR Respiratory Rate 18 04/05/2022 8:54 AM CDT Oxygen Saturation 100% 04/05/2022 8:5 4 AM CDT Inhaled Oxygen Concentration - - Weight 101 kg (222 lb 11.2 oz) 04/05/2022 8:54 AM CDT Pt weighed with shoes on. Height 172.7 cm (5' 8) 02/01/2018 1:12 PM CDT Body Mass Index 33.86 02/01/2018 1:12 PM CDT Plan of Treatment Health Maintenance Due Date Last Done Comments Hepatitis C screening for ag e 18-79 1974 Zoster (shingles) series for age 50+ (1 of 2) 2006 Tetanus booster 12/16/2018 12/16/2008, 02/05/2004 BMI (ht and wt on same day) for age 18+ 02/01/2019 02/01/2018, 04/30/2017, 10/09/2016, Additional history exists Depression screening for age 12+ 02/01/2019 02/02/20 18, 10/09/2016 Medicare Wellness for age 65+ 2021 Pneumococcal series for age 65+ (2 of 2 - PCV) 2021 02/05/2004 Lipids for age 45-75 02/01/2023 02/01/2018, 04/30/2017, 02/08/2017, Additional history exists COVID-19 vaccine series ( season) 2023 08/07/2021, 12/22/2020, 11/24/2020 Influenza for age 65+ 05/25/2023 10/09/2016 , 06/11/2012, 06/16/2011, Additional history exists Colonoscopy through age 75 01/12/2025 01/12/2015, Tdap Completed 12/16/2008 Advance Directives Latest Code Status on File Code Status Date Activated Date Inactivated Comments Full Code 01/18/2015 6:27 AM 01/18/2015 1:59 PM Care Teams Cord Maker Relationship Specialty Start Date End Date Luis Farmer MD [address] [place] [address] PCP - General Family Practice 08/10/21 Parmjit Hawkins [id number] [address] Dermatology Dermatology 11/04/14
--- OUTSIDE RECORDS SUMMARY | 2023-10-25 10:07 | XMS_ITS | Encounter Summary ---
Author Name Unknown Organization [employer] Address [address] [place] [id number] Care Team Providers Care Electric Sign Assembler Name Role Phone No Ref-Primary, Physician Primary Care Provider Reason for Visit * Auth/Cert (Routine) Specialty Diagnoses / Procedures Referred By Demario crawford Referred To Contact Surgery Diagnoses Prostate cancer (H) Prostate cancer (H) [C61] Procedures VT LAPAROSCOPY, SURGICAL; W/ BILAT TOTAL PELVIC LYMPHADENECTOMY VT LAPAROSCOPY, SURGICAL PROSTATECTOMY, RETROPUBIC RADICAL, W/NERVE SPARING ZZPR LAPS SURG [id number] SMPL STOT ROBOTIC ASSISTANCE ROBOTIC ASSISTED LAPAROSCOPIC PROSTATECTOMY AND PELVIC LYMPH NODE DISSECTION Periop Services [address] [place] [address] Referral ID Status Reason Start Date Expiration Date Visits Re quested Visits Authorized [id number] 1 1 Encounter Details Date Type Department Care Team (Late st Contact Info) Description 07/10/2023 7:30 AM CDT - 07/10/2023 12:25 PM CDT Surgery [facility] PeriOP Services [address] [place] [address] Arvin Carrera MD [facility] [address] [place] [id number] ROBOTIC ASSISTED LAPAROSCOPIC PROSTATECTOMY AND PELVIC LYMPH NODE DISSECTION Surgery Details Date/Time Status Location OR Service Patient Class Case Class Case Type Trauma Case? 07/10/23 7:30 AM Posted OR OR M 42 [facility] Urology Same Day Surgery Elective Panel 1 Procedure LRB Anes Op Region Wound Class Comments ROBOTIC ASSISTED LAPAROSCOPI C PROSTATECTOMY AND PELVIC LYMPH NODE DISSECTION N/A General Pelvis II-Clean Contaminated Surgeon Surgeon Role Service Panel Arvin Carrera MD Primary [place] n[place] 1 Melody Moya PA-C Assisting 1 Special Needs *missy-cpap, copd, htn, -asa, -holter monitor:ordered on 06/27. documented in this encounter Social History Tobacco [...] on file documented as of this encounter Last Filed Vital Signs Vital Sign Reading Time Taken Comments Blood Pressure 143/104 07/10/2023 6:02 AM CDT Pulse 68 07/10/2023 6:02 AM CDT Temperature 36.4 ??C (97.5 ??F) 07/10/2023 6:02 AM CD T Respiratory Rate 16 07/10/2023 6:02 AM CDT Oxygen Saturation 99% 07/10/2023 6:02 AM CDT Inhaled Oxygen Concentration - - Weight 114.5 kg (252 lb 8 oz) 07/10/2023 6:02 AM CDT Height 174 cm (5' 8.5) 07/10/2023 6:02 AM CDT Body Mass Index 37.83 07/10/2023 6:02 AM CDT documented in this encounter Medications at Time of Discharge Medication Sig Dispensed Refills Start Date End Date aspirin 81 MG EC tablet Take 1 tablet (81 mg) by mouth daily 0 07/15/2023 atorvastatin (LIPITOR) 40 MG tablet Take 40 mg by mouth daily 0 cetirizine (ZYRTEC) 10 MG tablet Take 10 mg by mouth daily 0 coenzyme Q-10 capsule Take 1 capsule by mouth daily 0 diphenhydrAMINE (BENADRYL) 25 MG tablet Take 25 mg by mouth 2 times daily as needed 0 docusate sodium (COLACE) 100 MG capsuleIndications:P rostate cancer (H) Take 1 capsule (100 mg) by mouth 2 times daily as needed for constipation 30 capsule 0 07/11/2023 fish oil-omega-3 fatty acids (OMEGA 3) 1000 MG capsule Take 1 capsule (1 g) by mouth daily 90 capsule 0 03/31/2014 hydrochlorothiazide (HYDRODIURIL) 12.5 MG tablet Take 12.5 mg by mouth every morning 0 lisinopril (ZESTRIL) 20 MG tablet Take 20 mg by mouth daily 0 metoprolol succinate ER (TOPROL XL) 25 MG 24 hr tablet Take 25 mg by mouth 2 times daily 0 minocycline (MINOCIN,DYNACIN) 100 MG capsule Take 1 capsule (100 mg) by mouth 2 times daily 180 capsule 3 03/31/2014 multivitamin, therapeutic with minerals (MULTI-VITAMIN) TABS Take 1 tablet by mouth daily 100 tablet 3 03/31/2014 omeprazole (EQ OMEPRAZOLE) 20 MG tablet Take 1 tablet (20 mg) by mouth daily 30 tablet 0 03/31/2014 ondansetron (ZOFRAN ODT) 4 MG ODT tabIndications:Prost ate cancer (H) Take 1 tablet (4 mg) by mouth every 8 hours as needed for nausea 10 tablet 0 07/11/2023 oxyCODONE (ROXICODONE) 5 MG tabletIndications:Pr ostate cancer (H) Take 1 tablet (5 mg) by mouth every 6 hours as needed for moderate to severe pain 10 tablet 0 07/11/2023 tadalafil (CIALIS) 5 MG tabletIndications:BP H (benign prostatic hypertrophy) Take 1 tablet (5 mg) by mouth daily Never use with nitroglycerin, terazosin or doxazosin. 90 tablet 3 05/13/2014 ciprofloxacin (CIPRO) 500 MG tabletIndications:Pr ostate cancer (H) Take 1 tablet (500 mg) by mouth 2 times daily for 3 days 6 tablet 0 07/19/2023 07/22/2023 documented as of this encounter Progress Notes * Abhijit Mcfarland MD - 07/11/2023 11:41 AM CDT Pt discharged by primary team. * Emperatriz Mulligan PA-C - 07/11/2023 8:00 AM CDT [facility] Progress Note Assessment & Plan Marco Antonio Watkins is a 67 year old male who was admitted on 07/10/2023. POD 1 s/p RALP w Dr. Carrera Plan: -ADAT -Ambulate -RN to teach toussaint cares, home w leg bag Ok for discharge home with toussaint midday, follow-up scheduled for 07/20 for catheter removal Emperatriz Mulligan PA-C [facility] [email or web address] Text Page (7:30am to 4:30pm) Interval History Feeling ok this AM, minimal discomfort ambulated yd evening, went well Some intermittent nausea, no vomiting; kimberley soft diet AVSS Physical Exam Temp: 97.8 ??F (36.6 ??C) Temp src: Oral BP: (!) 140/67 Pulse: 77 Resp: 16 SpO2: 99 % O2 Device: None (Room air) Vitals: 07/10/23 0602 Weight: 114.5 kg (252 lb 8 oz) Vital Signs with Ranges Temp: [97.5 ??F (36.4 ??C)-98.4 ??F (36.9 ??C)] 97.8 ??F (36.6 ??C) Pulse: [66-81] 77 Resp: [14-22] 16 BP: (126-162)/(63-89) 140/67 FiO2 (%): [35 %-60 %] 35 % SpO2: [94 %-100 %] 99 % I/O last 3 completed shifts: In: 3781 [P.O.:480; I.V.:3301] Out: 1345 [Urine:745; Emesis/NG output:450; Blood:150] GENERAL: Awake, alert, no acute distress, resting in bed HEAD: Normocephalic atraumatic SCLERA: Anicteric EXTREMITIES: Warm and well perfused ABDOMEN: Soft, appropriately tender, non-distended. No guarding, rigidity, or peritoneal signs. INCISION: C/d/i, dermabond : toussaint with beth output Medications sodium chloride 100 mL/hr at 07/11/23 0305 acetaminophen 975 mg Oral Q6H ketorolac 15 mg Intravenous Q6H metoprolol 5 mg Intravenous Q6H sodium chloride (PF) 3 mL Intracatheter Q8H Data Results for orders placed or performed during the hospital encounter of 07/10/23 (from the past 24 hour(s)) Glucose by meter Result Value Ref Range GLUCOSE BY METER POCT 116 (H) 70 - 99 mg/dL * Melody Moya PA-C - 07/10/2023 5:08 PM CDT UROLOGY PROGRESS NOTE July 10, 2023 Post-op Day # 0 SUBJECTIVE: Doing OK. Still a bit groggy from anesthesia. Pain is controlled overall. Reports having nausea earlier, but this has subsided. Has not stood up bedside yet. Multiple family members at bedside. OBJECTIVE: Temp: [97.5 ??F (36.4 ??C)-98.4 ??F (36.9 ??C)] 97.6 ??F (36.4 ??C) Pulse: [66-81] 70 Resp: [14-22] 16 BP: (126-148)/(63-104) 132/73 FiO2 (%): [35 %-60 %] 35 % SpO2: [94 %-100 %] 94 % Intake/Output Summary (Last 24 hours) at 07/10/2023 1640 Last data filed at 07/10/2023 1245 Gross per 24 hour Intake 2000 ml Output 270 ml Net 1730 ml GENERAL: Awake, alert, no acute distress, resting in bed HEAD: Normocephalic atraumatic SCLERA: Anicteric EXTREMITIES: Warm and well perfused ABDOMEN: Soft, appropriately tender, non-distended. No guarding, rigidity, or peritoneal signs. INCISION: C/d/i, dermabond : toussaint with beth output LABS: No results found for: WBC No results found for: HGB No results found for: HCT No results found for: PLT Last Basic Metabolic Panel: Lab Results Component Value Date NA 142 03/31/2014 Lab Results Component Value Date POTASSIUM 4.2 07/10/2023 POTASSIUM 5.0 03/31/2014 Lab Results Component Value Date CHLORIDE 106 03/31/2014 Lab Results Component Value Date ERVIN 9.7 03/31/2014 Lab Results Component Value Date CO2 26 03/31/2014 Lab Results Component Value Date BUN 17 03/31/2014 Lab Results Component Value Date CR 1.06 07/10/2023 CR 1.06 03/31/2014 Lab Results Component Value Date GLC 120 07/10/2023 GLC 102 03/31/2014 ASSESSMENT/PLAN: 67yo man POD #0 RALP. 1. Regular diet 2. Tylenol Q6 and toradol Q6 hours for pain. PRN oxycodone avail for pain not relieved by tylenol/toradol. Minimize narcotics as able. 3. Continue Toussaint, needs teaching prior to discharge 4. OOB, ambulate tonight and advance to QID 5. Path pending-- will be reviewed at his postop visit 6. Melatonin ordered for bed per pt request 7. Dispo: Anticipate discharge to home tomorrow. Follow-up next week 07/20 with me for post op visit (toussaint removal, path review). Emperatriz Mulligan PA-C will be rounding for our team tomorrow morning. Melody Moya PA-C [facility] After 4pm and on weekends, please call [phone] * Shira Hampton - 07/09/2023 2:10 PM CDT DIETETICS TEACHER medications updated by Medication Scribe prior to surgery via phone call with patient (last doses completed by Nurse) Medication history sources: Patient's family/friend (SPOUSE) and H&P In the past week, patient estimated taking medication this percent of the time: Greater than 90% Significant changes made to the medication list: None Additional medication history information: None Medication reconciliation completed by provider prior to medication history? No Time spent in this activity: 30 MINUTES The information provided in this note is only as accurate as the sources available at the time of update(s) Prior to Admission medications Medication Sig Last Dose Taking? Auth Provider Smasher End Date aspirin 81 MG EC tablet Take 1 tablet (81 mg) by mouth daily Yes Jerry Schmidt MD atorvastatin (LIPITOR) 40 MG tablet Take 40 mg by mouth daily at AM Yes Reported, Patient Yes cetirizine (ZYRTEC) 10 MG tablet Take 10 mg by mouth daily at AM Yes Reported, Patient coenzyme Q-10 capsule Take 1 capsule by mouth daily Yes Reported, Patient diphenhydrAMINE (BENADRYL) 25 MG tablet Take 25 mg by mouth 2 times daily as needed at PM Yes Reported, Patient fish oil-omega-3 fatty acids (OMEGA 3) 1000 MG capsule Take 1 capsule (1 g) by mouth daily Yes Jerry Schmidt MD hydrochlorothiazide (HYDRODIURIL) 12.5 MG tablet Take 12.5 mg by mouth every morning at AM Yes Reported, Patient Yes lisinopril (ZESTRIL) 20 MG tablet Take 20 mg by mouth daily at AM Yes Reported, Patient No metoprolol succinate ER (TOPROL XL) 25 MG 24 hr tablet Take 25 mg by mouth 2 times daily at AM Yes Reported, Patient Yes minocycline (MINOCIN,DYNACIN) 100 MG capsule Take 1 capsule (100 mg) by mouth 2 times daily at PM Yes Jerry Schmidt MD multivitamin, therapeutic with minerals (MULTI-VITAMIN) TABS Take 1 tablet by mouth daily Yes Jerry Schmidt MD omeprazole (EQ OMEPRAZOLE) 20 MG tablet Take 1 tablet (20 mg) by mouth daily at AM Yes Jerry Schmidt MD tadalafil (CIALIS) 5 MG tablet Take 1 tablet (5 mg) by mouth daily Never use with nitroglycerin, terazosin or doxazosin. at PRN Yes Jerry Schmidt MD Yes documented in this encounter H&P Notes * Royce Arnold, - 07/10/2023 6:52 AM CDT I have reviewed the surgical (or preoperative) H&P that is linked to this encounter, and examined the patient. There are no significant changes Clinical Conditions Present on Arrival: Clinically Significant Risk Factors Present on Admission # Drug Induced Platelet Defect: home medication list includes an antiplatelet medication # Obesity: Estimated body mass index is 37.83 kg/m?? as calculated from the following: Height as of this encounter: 1.74 m (5' 8.5). Weight as of this encounter: 114.5 kg (252 lb 8 oz). Source Note - Outside, Provider - 07/06/2023 11:59 AM CDT documented in this encounter Procedure Notes * Arvin Carrera MD - 07/10/2023 12:46 PM CDT Preoperative Diagnosis: Prostate Cancer Postoperative Diagnosis: Prostate Cancer Procedure: 1. Robotic Radical Prostatectomy with bilateral pelvic lymphadenectomy Surgeon: Arvin Carrera MD Brake Operator Helper: Melody Moya PA-C Date of Procedure: 07/10/23 OPERATIVE INDICATION: Marco Antonio Watkins is a 67 year old male with prostate cancer. After understanding various management options he elected to undergo today's procedure. Clinical stage: [id number] PSA: 8.1 FINESSE: smooth MRI findings: 2.7 cm PIRADS 4 anterior midline TZ Prostate volume: 34g EPE: possible anterior SVI: unlikely Urethral length: unlikely LNI:unlikely Biopsy grade: 3+3=6 # cores positive:3 # cores total: 12 Intraoperative findings: narrow and deep pelvis Urethra:good length Right nerve sparing: complete Left nerve sparing: near complete Bladder neck sparing: partial Bladder neck reconstruction: anterior Anastomosis tested:watertight Lymphadenopathy: no Accessory obturator artery/size/spared: n/a PORT PLACEMENT: Standard 6 ports After discussing all treatment options, the patient elected to proceed with robotic prostatectomy. The patient understands that we will proceed with robotic prostatectomy, but will convert to open prostatectomy if needed. DESCRIPTION OF PROCEDURE: The patient was identified and was brought to the operating room. He was placed on a Gelfoam paddedtable. After adequate general anesthesia, he was placed in supine position. Pneumatic compression stockings had been applied. All pressure points were adequately padded. Arms were tucked and he was secured to the table. The patient was then prepped and draped in the usual manner. Time out was called . An 18 [place] catheter was placed and the bladder was emptied. I made a small supraumbilical incision. Using a Veress needle, pneumoperitoneum was achieved. I then placed an 8 mm port at this site. Initial endoscopic inspection with a 0 degree lens showed no evidence of vascular or visceral injury. There were no adhesions. The remaining ports were then placed. Two 8 mm ports were placed on either side 10 cm from the umbilical port. A 12 mm port was placed in the right lower quadrant above the anterior superior iliac spine, and a similar location on the left side an 8 mm port was placed. A 5 mm suction port was placed lateral to the camera port on the right side. With all the ports in place the patient was placed in steep Trendelenburg position and the robot was docked. The sigmoid was sharply released from the LLQ and the posterior bladder at the cul-de-sac. I then incised the peritoneum at the bladder base and the posterior dissection was carried beneath Denonvillier's fascia to the prostate apex. The seminal vesicles and vas deferens were identified and dissected free. Next peritoneal incisions were made lateral to the medial umbilical ligaments and the bladder was dissected away from the anterior abdominal wall and pubic ramus to expose the prostate. The superficial dorsal vein was cauterized and transected. The endopelvic fascia was opened. Incision wasmade in the lateral prostatic fascia and nerve-sparing was started in the interfascial plane. Next the anterior bladder wall was incised at the level of the bladder neck. The posterior bladder neck was then excised and dissected away from the base of the prostate. The seminal vesicles and vasdeferens were now tented up. This exposed the lateral pedicles. I then proceeded to identify the plane between the lateral prostate and the lateral pedicles. Hem-O-Tameka clips were used and the lateral pedicle was transected. Electrocautery was not used in this area. Complete right and near complete left nerve preservation was performed. The dissection was carried around the apex of the prostate. Next I transected the deep dorsal vein and then oversewed this with a running 3-0 V-tameka suture. The urethra was transected distal to the apex of the prostate and theprostate was placed in a Endocatch. Excellent urethral length was preserved. Artem-Seal was used to achieve further hemostasis. A bilateral pelvic lymph node dissection was done, removing fibrofatty tissue in the external iliacand obturator areas. Bipolar cautery and hemolock clips were used to ligate lymphatic vessels. The obturator nerve was identified and preserved bilaterally. I then proceeded to anastomose the bladder neck to the urethra using a running suture of 3-0 Monocryl on a double armed needle. An 18 [place] catheter was placed and the bladder irrigated well. A good watertight, tension free anastasmosis was obtained. Further inspection at this time showed no further bleeding. The string of the Endocatch was then brought out through the umbilical port site. The robot was then undocked. The laparoscopic ports were removed under vision and the 12 mm administrative assistant coordinator port was closed with an 0 Vicryl using a Scaffold device I slightly extended the supraumbilical incision and the prostate was removed through this site. The fascia was then closed using running 0 Vicryl sutures. The skin incisions were closed using 4-0 monocryl and Dermabond. The needle,sponge and lap counts were correct. The patient remained stable throughout the entire procedure. The estimated blood loss was: 150 ml. The patient tolerated the procedure well and was sent to the recovery room in stable condition. Catheter can be removed in 10 days documented in this encounter Nursing Notes * Bessie Joshi RN - 07/09/2023 9:19 AM CDT Pt states he got a text message last week from his PMD THAT HIS BP IS SATISFACTORY, AND HIS HOLTER MONITOR DONE 06/27/23 WAS INSIGNIFICANT AND HE IS GOOD TO GO FOR SURGERY . MESSAGE TO [facility] TO FOLLOW UP AND TRY TO GET ADDENDUM TO PREOP FOR WRITTEN CLEARANCE. documented in this encounter Miscellaneous Notes * Plan of Care - Anju Hoffman RN - 07/11/2023 11:55 AM CDT POD 1 from a prostatectomy. A&O. CMS intact. Bowel sounds +x4, + flatus, tolerating regular diet. VSS. Lap sites WDL. Up with SBA. Denies pain, toradol & tylenol given. Zofran given to prevent car sickness. Toussaint teaching completed. AVS given & reviewed, all questions answered. Sent home with meds, AVS, & all belongings. * Plan of Care - Yoli Grimes RN - 07/11/2023 6:33 AM CDT [id number] POD#1 Robotic Radical Prostatectomy with bilateral pelvic lymphadenectomy. Patient AOX4. VSS on RA.Pt ambulating assist of 1 gb/walker. Pain managed with scheduled tylenol/toradol . Abdominal incisions CDI. Toussaint adequate output, beth. BS audible/No BM on shift. Denies N/V.Diet Reg. PIV infusing NS@100ml/hr. Continue plan of care. Plan for discharge pending. * Plan of Care - Parmjit López RN - 07/10/2023 7:37 PM CDT 3 p to 7 p. A&O, BP elevated, on RA, CPAP at night, sat at the side of the bed, independent baseline, regular diet, emesis x 5, Zofran and Compazine x 1 given, toussaint in, tea colored output, 4 port sites and a lap site, CDI, continue to monitor. * Plan of Care - Christa Berumen RN - 07/10/2023 3:28 PM CDT Pt. Just arrived from PACU. POD#0 from lap prostatectomy & pelvic lymph node dissection. 5 portsites and 1 lap site CDI covered with liquid bandaid. A&Ox4, lethargic. VSS on RA. 2 PIV (LxR),Toussaint in place (Will remain at discharge). NS @ 100ml/hr. Regular diet documented in this encounter Plan of Treatment Not on file documented as of this encounter Procedures Procedure Name Priority Date/Time Associated Diagnosis Comments HEMOGLOBIN Routine 07/11/2023 8:37 AM CDT BASIC METABOLIC PANEL Routine 07/11/2023 8:37 AM CDT GLUCOSE BY METER Routine 07/11/2023 6:14 AM CDT SURGICAL PATHOLOGY EXAM Routine 07/10/2023 9:32 AM CDT PROSTATECTOMY, ROBOT-ASSISTED, USING DA FRANKI XI, WITH PELVIC LYMPHADENECTOMY 07/10/2023 7:42 AM CDT Prostate cancer (H) Special Needs *missy-cpap, copd, htn, -asa, -holter monitor:ordered on 06/27. EXTRA TUBE Routine 07/10/2023 6:54 AM CDT EXTRA BLOOD BANK PURPLE TOP TUBE Routine 07/10/2023 6:54 AM CDT POTASSIUM STAT 07/10/2023 6:54 AM CDT CREATININE STAT Add-on 07/10/2023 6:54 AM CDT TYPE AND SCREEN, ADULT STAT 6:08 AM CDT ABO/RH TYPE AND SCREEN STAT 6:08 AM CDT GLUCOSE STAT 07/10/2023 6:08 AM CDT LAB RESULT - HIM SCAN 06/27/2023 12:00 AM CDT LAB RESULT - HIM SCAN 06/27/2023 12:00 AM CDT documented in this encounter Results * (ABNORMAL) Hemoglobin (07/11/2023 8:37 AM CDT) Hemoglobin 12.2(L) 13.3 - 17.7 g/dL 07/11/2023 8:59 AM T LABORATORY Blood STRUCTURE OF RIGHT UPPER LIMB / Unknown Venipuncture / Unknown 07/11/2023 8:37 AM CDT 07/11/2023 8:53 AM CDT Melody Moya PA-C LAB - BLOOD O RDERABLES LABORATORY [facility] [address], [address] [place] [address], [facility] [phone] * (ABNORMAL) Basic metabolic panel (07/11/2023 8:37 AM CDT) [facility] Sodium 142 135 - 145 mmol/L 07/11/2023 9:23 AM [facility] Comment:Reference intervals for this test were updated on 06/19/2023 to more accurately reflect our healthy population. There may be differences in the flagging of prior results with similar values performed with this method. Interpretation of those prior results can be made in the context of the updated reference intervals. Potassium 3.7 3.4 - 5.3 mmol/L 07/11/2023 9:23 AM [facility] Chloride 109(H) 98 - 107 mmol/L 07/11/2023 9:23 AM [facility] Carbon Dioxide (CO2) 22 22 - 29 mmol/L 07/11/2023 9:23 AM [facility] Anion Gap 11 7 - 15 mmol/L 07/11/2023 9:23 AM [facility] Urea Nitrogen 26.2(H) 8.0 - 23.0 mg/dL 07/11/2023 9:23 AM [facility] Creatinine 1.17 0.67 - 1.17 mg/dL 07/11/2023 9:23 AM [facility] GFR Estimate 69 >60 mL/min/1. 73m2 07/11/2023 9:23 AM [facility] Calcium 8.2(L) 8.8 - 10.2 mg/dL 07/11/2023 9:23 AM [facility] Glucose 123(H) 70 - 99 mg/dL 07/11/2023 9:23 AM CDT LABORATORY Blood STRUCTURE OF RIGHT UPPER LIMB / Unknown Venipuncture / Unknown 07/11/2023 8:37 AM CDT 07/11/2023 8:53 AM CDT Melody Moya PA-C LAB - BLOOD O RDERABLES LABORATORY [facility] [address], [address] [place] [address], [facility] [phone] * (ABNORMAL) Glucose by meter (07/11/2023 6:14 AM CDT) GLUCOSE BY METER POCT 116(H) 70 - 99 mg/dL 07/11/2023 6:21 AM CDT LABORATORY POC Blood, Capillary BLOOD SPECIMEN / Unknown 07/11/2023 6:14 AM CDT 07/11/2023 6:21 AM CDT Arvin Carrera MD LAB - BEAK ER POCT Performing Organization Address City/[facility]/ZIP Co de Phone Number LABORATORY POC [facility] [address], [address] [place] [address], [facility] [phone] * (ABNORMAL) Surgical Pathology Exam (07/10/2023 9:32 AM CDT) Case Report Surgical Pathology Report ? Case: [id number] ? Authorizing Provider: ??Arvin Carrera ? Collected: ? 07/10/2023 09:32 AM ? MD Joni ? Ordering Location: ? [facility] ?Received: ?07/10/2023 01:00 PM ? [facility] ? Pathologist: ? Yazmin Mchugh, MD PhD ? Specimens: ?? A) - Prostate, Mee prostatic fat ? B) - Prostate, Prostate and seminal vesicles ? C) - Lymph Node(s), Left pelvic lymph nodes with clip ? D) - Lymph Node(s), Right pelvic lymph nodes ? 07/11/2023 3:19 PM CDT [facility] Final Diagnosis A(1). Mee prostatic fat, excision: -Benign fibroadipose tissue B(2). Prostate and seminal vesicles, radical prostatectomy: -Prostatic adenocarcinoma, acinar type, Prairie's grade 3+3 = 6, grade group is 1 -See synoptic report for further details C(3). Left pelvic lymph nodes, excision: -Two (2) lymph nodes negative for metastatic carcinoma (0/2) D(4). Right pelvic lymph nodes: -Two (2) lymph nodes negative for metastatic carcinoma (0/2) 07/11/2023 3:19 PM CDT LABORATORY Synoptic Checklist PROSTATE GLAND: Radical Prostatectomy PROSTATE GLAND: RADICAL PROSTATECTOMY - All Specimens 8th Edition - Protocol posted: 08/03/2021 SPECIMEN ?? Procedure: ?Radical prostatectomy TUMOR ?? Histologic Type: ?Acinar adenocarcinoma ?? Histologic Grade: ? Grade: ?Grade group 1 (Barbara Score 3 + 3 = 6) ?? Intraductal Carcinoma (IDC): ?Not identified ?? Treatment Effect: ?No known presurgical therapy ?? TUMOR QUANTITATION: ? Estimated Percentage of Prostate Involved by Tumor: ?6 - 10% Extraprostatic Extension (EPE): ?Present, focal ?? Location of Extraprostatic Extension: ?Left posterior Urinary Bladder Neck Invasion: ?Not identified Seminal Vesicle Invasion: ?Not identified Lymphovascular Invasion: ?Not Identified MARGINS Margin Status: ?All margins negative for invasive carcinoma REGIONAL LYMPH NODES Regional Lymph Node Status: ? : ?All regional lymph nodes negative for tumor ?? Number of Lymph Nodes Examined: ?4 PATHOLOGIC STAGE CLASSIFICATION (pTNM, AJCC 8th Edition) ?? Reporting of pT, pN, and (when applicable) pM categories is based on information available to the pathologist at the time the report is issued. As per the AJCC (Chapter 1, 8th Ed.) it is the managing physician? s responsibility to establish the final pathologic stage based upon all pertinent information, including but potentially not limited to this pathology report. Primary Tumor (pT): ?pT3a pN Category: ?pN0 07/11/2023 3:19 PM CDT LABORATORY Clinical Information Procedure: ROBOTIC ASSISTED LAPAROSCOPIC PROSTATECTOMY AND PELVIC LYMPH NODE DISSECTION Pre-op Diagnosis: Prostate cancer (H) [C61] Post-op Diagnosis: C61 - Prostate cancer (H) [ICD-10-CM] 07/11/2023 3:19 PM CDT LABORATORY Gross Description A(1). Prostate, Mee prostatic fat: The specimen is received in formalin, labeled with the patient's name, medical record number and other identifying information designated periprostatic fat. It consists of a 4.5 x 3.0 x 1.0 cm aggregate of yellow-truong, lobulated adipose tissue fragments which are sectioned, display a homogenous pale-truong, lobulated cut surface. Surveying [employer] Stake Runner sections of the specimen are submitted in 1 cassette. B(2). Prostate, Prostate and seminal vesicles: The specimen is received in formalin labeled with the patient's name, medical record number, and other identifying information and designated prostate and seminal vesicles. It consists of a 37.4 g radical prostatectomy specimen measuring 3.0 cm apex to base x 4.0 cm transversely x 3.5 cm anterior to posterior. The right and left seminal vesicles measure 4.3 x 2.0 x 1.0 cm and 3.8 x 1.5 x 1.0 cm respectively. The right and left vasa deferentia measure 4.0 cm in length x 0.5 cm in diameter and 4.0 cm in length x 0.5 cm diameter, respectively. The left side of the prostate is inked black, and the right side is inked blue. The bladder neck and distal urethral margins are coned and submitted entirely. The specimen is serially sectioned from apex to base into 7 slices, revealing pale-truong, bulging cut surface. No discrete tumor nodules are noted grossly. Surveying Crew Stake Runner sections including the entire posterior aspect are submitted. Summary of Sections: B1 - right seminal vesicle and en face vas deferens margin B2 - left seminal vesicle and en face vas deferens margin B3 - right bladder neck margin B4 - left bladder neck margin B5 - right distal urethral margin B6 - left distal urethral margin B7-B13 - right posterior, sequentially submitted from apex to base B14-B20 - left posterior, sequentially submitted from apex to base B21 - right anterior mid (slice 3) B22 - left anterior mid (slice 3) C(3). Lymph Node(s), Left pelvic lymph nodes with clip: The specimen is received in formalin, labeled with the patient's name, medical record number and other identifying information designated left pelvic lymph nodes with clip. It consists of a 6.0 x 6.0 x 1.0 cm aggregate of yellow-truong, lobulated adipose tissue with a single pale-truong plastic clip. Isolated from the adipose tissue are 2, 0.7 x 0.7 x 0.2 cm and 3.0 x 1.5 x 0.8 cm pale-truong possible lymph nodes which are submitted entirely as follows: C1-1 possible lymph node, bisected C2-C4-1 possible lymph node, quadrisected D(4). Lymph Node(s), Right pelvic lymph nodes: The specimen is received in formalin, labeled with the patient's name, medical record number and other identifying information designated right pelvic lymph nodes. It consists of a 6.0 x 4.0 x 1.0 cm aggregate of yellow-truong, lobulated adipose tissue. Isolated from the adipose tissue are 3, 0.5-0.8 x 0.3 x 0.1 cm pale-truong possible lymph nodes which are left intact, are submitted entirely in 1 cassette. (Sabine Jack) 07/11/2023 3:19 PM CDT LABORATORY Microscopic Description Microscopic examination was performed. 07/11/2023 3:19 PM CDT LABORATORY MCRS Yes(A) N/A 07/11/2023 3:19 PM CDT LABORATORY Performing Labs The technical component of this testing was completed at [facility] 07/11/2023 3:19 PM CDT LABORATORY Case Images 07/11/2023 3:19 PM CDT LABORATORY Tissue PROSTATIC STRUCTURE / Unknown 07/10/2023 9:32 AM CDT 07/10/2023 1:00 PM CDT Tissue specimen (specimen) PROSTATIC STRUCTURE / Unknown 07/10/2023 10:51 AM CDT 07/10/2023 1:00 PM CDT Tissue specimen (specimen) STRUCTURE OF LYMPH NODE / Unknown 07/10/2023 10:51 AM CDT 07/10/2023 1:00 PM CDT Tissue specimen (specimen) STRUCTURE OF LYMPH NODE / Unknown 07/10/2023 10:52 AM CDT 07/10/2023 1:00 PM CDT Arvin Carrera MD LAB - BEAK ER AP LABORATORY [facility] [address] Lab (1st floor, no room number) [place] [address], [place] [phone] LABORATORY [facility] [address] 1st floor, [address] [place] [address], [place] [phone] * Creatinine (07/10/2023 6:54 AM CDT) Creatinine 1.06 0.67 - 1.17 mg/dL 07/10/2023 1:43 PM CDT LABORATORY GFR Estimate 77 >60 mL/min/1.73 m2 07/10/2023 1:43 PM CDT LABORATORY Blood STRUCTURE OF RIGHT HAND / Unknown Venipuncture / Unknown 07/10/2023 6:54 AM CDT 07/10/2023 7:05 AM CDT Melody Moya PA-C LAB - BLOOD O RDERABLES LABORATORY [facility] [address] 1st floor, [address] [place] [address], [place] [phone] * Extra Blood Bank Purple Top Tube (07/10/2023 6:54 AM CDT) Hold Specimen JIC 07/10/2023 8:16 AM CDT LABORATORY Blood STRUCTURE OF RIGHT HAND / Unknown Venipuncture / Unknown 07/10/2023 6:54 AM CDT 07/10/2023 7:15 AM CDT Arvin Carrera MD LAB - BLOO D ORDERABLES LABORATORY [facility] [address] 1st floor, [address] [place] [address], [place] [phone] * Potassium (07/10/2023 6:54 AM CDT) Potassium 4.2 3.4 - 5.3 mmol/L 07/10/2023 7:25 AM CDT LABORATORY Blood STRUCTURE OF RIGHT HAND / Unknown Venipuncture / Unknown 07/10/2023 6:54 AM CDT 07/10/2023 7:05 AM CDT Royce Arnold DO LAB - BLOOD ORDER MICHAEL LABORATORY [facility] [address] 1[address] floor, [address] [place] [address], [place] [phone] * Adult Type and Screen (07/10/2023 6:08 AM CDT) ABO/RH(D) A POS 07/10/2023 5:47 AM CDT BLOOD BANK Antibody Screen Negative Negative 07/10/2023 5:47 AM CDT BLOOD BANK SPECIMEN EXPIRATION DATE [id number] 07/10/2023 5:47 AM CDT BLOOD BANK Blood STRUCTURE OF LEFT WRIST REGION / Unknown Venipuncture / Unknown 07/10/2023 6:08 AM CDT 07/10/2023 6:13 AM CDT Manju Arreola PA-C LAB - BLOOD BAN K TEST ORDER BLOOD BANK [address] [place] [address], [place] * (ABNORMAL) Glucose (07/10/2023 6:08 AM CDT) Glucose 120(H) 70 - 99 mg/dL 07/10/2023 6:38 AM CDT LABORATORY Patient Fasting > 8hrs? Yes 07/10/2023 6:38 AM CDT LABORATORY Blood STRUCTURE OF LEFT WRIST REGION / Unknown Venipuncture / Unknown 07/10/2023 6:08 AM CDT 07/10/2023 6:13 AM CDT Royce Arnold DO LAB - BLOOD ORDER MICHAEL LABORATORY [facility] [address] 1st floor, [address] [place] [address], [facility] [phone] * LAB RESULT - HIM SCAN (06/27/2023 12:00 AM CDT) 06/27/2023 Provider Outside NON-BEAKER LAB TE STING * LAB RESULT - HIM SCAN (06/27/2023 12:00 AM CDT) 06/27/2023 Provider Outside NON-BEAKER LAB TE STING documented in this encounter Visit Diagnoses Diagnosis Prostate cancer (H)- Primary Malignant neoplasm of prostate Prostate cancer (H) Malignant neoplasm of prostate documented in this encounter Admitting Diagnoses Diagnosis Prostate cancer (H) Malignant neoplasm of prostate documented in this encounter Administered Medications Inactive Administered Medications - up to 3 most recent administrations Medication Order MAR Action Action Date Dose Rate Site acetaminophen (TYLENOL) tablet 975 mg 975 mg, Oral, ONCE, On Sun07/10/23 at 0600, For 1 dose, Maximum acetaminophen dose from all sources = 75 mg/kg/day not to exceed 4 grams/day., Pre-procedure $Given 07/10/2023 6:38 AM CDT 975 mg acetaminophen (TYLENOL) tablet 975 mg 975 mg, Oral, EVERY 6 HOURS, First dose on Sun07/10/23 at 1700, For 3 days, Administer for multimodal surgical pain management. Maximum acetaminophen dose from all sources = 75 mg/kg/day not to exceed 4 grams/day. $Given 07/11/2023 10:58 AM CDT 975 mg $Given 07/11/2023 4:55 AM CDT 975 mg $Given 07/10/2023 10:27 PM CDT 975 mg BUPivacaine (MARCAINE) 0.5% injection MDV PRN, Starting on Sun07/10/23 at 1222, Intra-procedure $Given 07/10/2023 12:22 PM CDT 30 mLs Operative Site/Surgi ervin Site ketorolac (TORADOL) injection 15 mg 15 mg, Intravenous, EVERY 6 HOURS, First dose on Sun07/10/23 at 1630, For 5 days, Can cause pain on injection. If ordered intravenously (IV) : administer through a running maintenance fluid over 1 minute followed by a flush. If patient complains of pain on injection, may dilute 15-30 mg in 5 mL and push over 1 to 2 minutes. $Given 07/11/2023 11:02 AM CDT 15 mg $Given 07/11/2023 4:55 AM CDT 15 mg $Given 07/10/2023 10:27 PM CDT 15 mg lactated ringers infusion at 10 mL/hr, Intravenous, CONTINUOUS, Pre-procedure, Starting on Sun07/10/23 at 0600, Until Sun07/10/23 at 1253 $New Bag 07/10/2023 12:08 PM CDT $New Bag 07/10/2023 8:50 AM CDT Restarted 07/10/2023 7:42 AM CDT melatonin tablet 5 mg 5 mg, Oral, AT BEDTIME PRN, sleep, Starting on Sun07/10/23 at 1709 $Given 07/10/2023 8:12 PM CDT 5 mg metoprolol succinate ER (TOPROL XL) 24 hr tablet 25 mg 25 mg, Oral, 2 TIMES DAILY, First dose on Sun07/11/23 at 0900, DO NOT CRUSH. Tablet may be split in half along score line. $Given 07/11/2023 10:58 AM CDT 25 m g naloxone (NARCAN) injection 0.2 mg 0.2 mg, Intravenous, EVERY 2 MIN PRN, opioid reversal, Starting on Sun07/10/23 at 1611, Administer intravenous route when available and notify provider when administered. For unintended sedation or respiratory depression if all of the below criteria are met: ~ respiratory rate LESS than or EQUAL to 8. ~SaO2 less than 92% and or/end-tidal CO2 is greater than 50. ~ the patient is receiving an opioid, has unintended sedations assessed as RASS (-3), and is currently not on mechanical ventilation. RASS scale moderate (-3) is movement or eye opening to voice but no eye contact. Patient Monitoring Once the patient has demonstrated a response to the naloxone, continue to monitor respiratory rate, depth, oxygen saturation and end-tidal CO2 (if available) every 15 minutes x 2, then every 30 minutes x 2, then every 1 hour x 1 after each naloxone dose. Consider transfer to ICU if patient respiratory parameters have not improved after 4 naloxone doses. naloxone (NARCAN) injection 0.2 mg 0.2 mg, Intramuscular, EVERY 2 MIN PRN, opioid reversal, Starting on Sun07/10/23 at 161, Administer intramuscular if an intravenous route is not available and notify provider when administered. For unintended sedation or respiratory depression if all of the below criteria are met: ~ respiratory rate LESS than or EQUAL to 8. ~SaO2 less than 92% and or/end-tidal CO2 is greater than 50. ~ the patient is receiving an opioid, has unintended sedations assessed as RASS (-3), and is currently not on mechanical ventilation. RASS scale moderate (-3) is movement or eye opening to voice but no eye contact. Patient Monitoring Once the patient has demonstrated a response to the naloxone, continue to monitor respiratory rate, depth, oxygen saturation and end-tidal CO2 (if available) every 15 minutes x 2, then every 30 minutes x 2, then every 1 hour x 1 after each naloxone dose. Consider transfer to ICU if patient respiratory parameters have not improved after 4 naloxone doses. naloxone (NARCAN) injection 0.4 mg 0.4 mg, Intravenous, EVERY 2 MIN PRN, opioid reversal, Starting on Sun07/10/23 at 1611, Administer intravenous route when available and notify provider when administered. For unintended sedation or respiratory depression if all of the below criteria are met: ~ respiratory rate LESS than or EQUAL to 8. ~ SaO2 less than 92% and or/end-tidal CO2 is greater than 50. ~ the patient is receiving an opioid, has unintended sedation assessed as RASS (-4) or (-5) and patient is currently not on mechanical ventilation. RASS scale (-4) is deep sedation with no response to voice but movement or eye opening to physical stimulation. RASS scale (-5) is unarousable. Patient Monitoring Once the patient has demonstrated a response to the naloxone, continue to monitor respiratory rate, depth, oxygen saturation and end-tidal CO2 (if available) every 15 minutes x 2, then every 30 minutes x 2, then every 1 hour x 1 after each naloxone dose. Consider transfer to ICU if patient respiratory parameters have not improved after 4 naloxone doses. naloxone (NARCAN) injection 0.4 mg 0.4 mg, Intramuscular, EVERY 2 MIN PRN, opioid reversal, Starting on Sun07/10/23 at 1611, Administer intramuscular if an intravenous route is not available and notify provider when administered. For unintended sedation or respiratory depression if all of the below criteria are met: ~ respiratory rate LESS than or EQUAL to 8. ~ SaO2 less than 92% and or/end-tidal CO2 is greater than 50. ~ the patient is receiving an opioid, has unintended sedation assessed as RASS (-4) or (-5) and patient is currently not on mechanical ventilation. RASS scale (-4) is deep sedation with no response to voice but movement or eye opening to physical stimulation. RASS scale (-5) is unarousable. Patient Monitoring Once the patient has demonstrated a response to the naloxone, continue to monitor respiratory rate, depth, oxygen saturation and end-tidal CO2 (if available) every 15 minutes x 2, then every 30 minutes x 2, then every 1 hour x 1 after each naloxone dose. Consider transfer to ICU if patient respiratory parameters have not improved after 4 naloxone doses. ondansetron (ZOFRAN ODT) ODT tab 4 mg 4 mg, Oral, EVERY 6 HOURS PRN, nausea, vomiting, Starting on Sun07/10/23 at 1447, This is Step 1 of nausea and vomiting management. If nausea not resolved in 15 minutes, go to Step 2 prochlorperazine (COMPAZINE). Do not push through foil backing. Peel back foil and gently remove. Place on tongue immediately. Administration with liquid unnecessary With dry hands, peel back foil backing and gently remove tablet. Do not push oral disintegrating tablet through foil backing. Administer immediately on tongue and oral disintegrating tablet dissolves in seconds, then swallow with saliva. Liquid not required. $Given 07/11/2023 11:24 AM CDT 4 mg ondansetron (ZOFRAN) injection 4 mg 4 mg, Intravenous, EVERY 6 HOURS PRN, nausea, vomiting, Administer over 2-5 Minutes, Starting on Sun07/10/23 at 1447, This is Step 1 of nausea and vomiting management. If nausea not resolved in 15 minutes, go to Step 2 prochlorperazine (COMPAZINE). Irritant. $Given 07/10/2023 5:29 PM CDT 4 mg oxyCODONE (ROXICODONE) tablet 10 mg 10 mg, Oral, EVERY 4 HOURS PRN, severe pain, Starting on Sun07/10/23 at 1447, Hold oral PRN dose for analgesic side effects. Notify provider to assess for uncontrolled pain or analgesic side effects. Hold while on IV WATER TAXI CAPTAIN or with regular IV opioid dosing. oxyCODONE (ROXICODONE) tablet 5 mg 5 mg, Oral, EVERY 4 HOURS PRN, moderate pain, Starting on Sun07/10/23 at 1447, Hold oral PRN dose for analgesic side effects. Notify provider to assess for uncontrolled pain or analgesic side effects. Hold while on IV WATER TAXI CAPTAIN or with regular IV opioid dosing. $Given 07/10/2023 4:35 PM CDT 5 mg prochlorperazine (COMPAZINE) injection 5 mg 5 mg, Intravenous, EVERY 6 HOURS PRN, nausea, vomiting, Administer over 1-2 Minutes, Starting on Sun07/10/23 at 1447, This is Step 2 of nausea and vomiting management. If nausea not resolved in 15-30 minutes, Notify provider. $Given 07/10/2023 7:27 PM CDT 5 mg prochlorperazine (COMPAZINE) tablet 5 mg 5 mg, Oral, EVERY 6 HOURS PRN, nausea, vomiting, Starting on Sun07/10/23 at 1447, This is Step 2 of nausea and vomiting management. If nausea not resolved in 15-30 minutes, Notify provider. sodium chloride (PF) 0.9% PF flush 3 mL 3 mL, Intracatheter, EVERY 8 HOURS, First dose on Sun07/10/23 at 1500, to lock peripheral IV dormant line $Given 07/10/2023 10:27 PM CDT 3 mLs $Given 07/10/2023 4:37 PM CDT 3 mLs sodium chloride 0.9 % infusion at 100 mL/hr, Intravenous, CONTINUOUS, Starting on Sun07/10/23 at 1500, Until 07/11/23 at 1356 $New Bag 07/11/2023 3:05 AM CDT 100 mL/hr $New Bag 07/10/2023 4:37 PM CDT 100 mL/hr documented in this encounter Active and Recently Administered Medications Times are shown in CDT. Scheduled Medication Order 07/09/2023 07/10/2023 07/11/2023 acetaminophen (TYLENOL) tablet 975 mg (COMPLETED) 975 mg, Oral, ONCE, On Sun07/10/23 at 0600, For 1 dose, Maximum acetaminophen dose from all sources = 75 mg/kg/day not to exceed 4 grams/day., Pre-procedure 0638 ($Given - Provider: Demi Ibrahim RN) acetaminophen (TYLENOL) tablet 975 mg 975 mg, Oral, EVERY 6 HOURS, First dose on Sun07/10/23 at 1700, For 3 days, Administer for multimodal surgical pain management. Maximum acetaminophen dose from all sources = 75 mg/kg/day not to exceed 4 grams/day. 1635 ($Given - Provider: Parmjit López, RAN)2227 ($Given - Provider: Yoli Grimes, RAN) 0455 ($Given - Provider: Yoli Grimes, RAN)1058 ($Given - Provider: Anju Hoffman, RAN) ceFAZolin Sodium (ANCEF) injection 2 g (COMPLETED) Routine, 2 g, Intravenous, PRE-OP/PRE-PROCEDURE, Starting on Sun07/10/23 at 0546, For 1 dose, Give first dose within 1 hour PRIOR to incision. If patient weight is greater than or equal to 120 kg increase dose to 3 g., Indications: Perioperative Pharmacoprophylaxis, Pre-procedure 0750 ($Given - Provider: Royce Arnold DO)1150 ($Given - Provider: Aziza Friedman APRN CRNA) ketorolac (TORADOL) injection 15 mg 15 mg, Intravenous, EVERY 6 HOURS, First dose on Sun07/10/23 at 1630, For 5 days, Can cause pain on injection. If ordered intravenously (IV) : administer through a running maintenance fluid over 1 minute followed by a flush. If patient complains of pain on injection, may dilute 15-30 mg in 5 mL and push over 1 to 2 minutes. 1635 ($Given - Provider: Parmjit López RN)2227 ($Given - Provider: Yoli Grimes RN) 0455 ($Given - Provider: Yoli Grimes, RAN)1102 ($Given - Provider: Anju Hoffman, RAN) metoprolol succinate ER (TOPROL XL) 24 hr tablet 25 mg 25 mg, Oral, 2 TIMES DAILY, First dose on Sun07/11/23 at 0900, DO NOT CRUSH. Tablet may be split in half along score line. 1058 ($Given - Provider: Anju Hoffman, RAN) sodium chloride (PF) 0.9% PF flush 3 mL 3 mL, Intracatheter, EVERY 8 HOURS, First dose on Sun07/10/23 at 1500, to lock peripheral IV dormant line 1637 ($Given - Provider: Parmjit López RN)2227 ($Given - Provider: Yoli Grimes RN) 0600 (Not Given - Provider: Yoli Grimes RN - Reason: IV Infusing) Continuous Medication Order 07/09/2023 07/10/2023 07/11/2023 lactated ringers infusion (CANCELED) at 10 mL/hr, Intravenous, CONTINUOUS, Pre-procedure, Starting on Sun07/10/23 at 0600, Until Sun07/10/23 at 1253 0638 ($New Bag - Provider: Demi Ibrahim RN)0741 (Paused - Provider: Mary Craig APRN CRNA - Comment: Switch to gravity)0742 (Restarted - Provider: Mary Craig APRN CRNA)0850 ($New Bag - Provider: Mary Craig APRN CRNA)1208 ($New Bag - Provider: Mary Craig APRN CRNA) sodium chloride 0.9 % infusion at 100 mL/hr, Intravenous, CONTINUOUS, Starting on Sun07/10/23 at 1500, Until Sun07/11/23 at 1356 1637 ($New Bag - Provider: Parmjit López RN) 0305 ($New Bag - Provider: Yoli Grimes, RAN) PRN Medication Order 07/09/2023 07/10/2023 07/11/2023 BUPivacaine (MARCAINE) 0.5% injection MDV (CANCELED) PRN, Starting on Sun07/10/23 at 1222, Intra-procedure 1222 ($Given - Provider: Arvin Carrera MD) docusate sodium (COLACE) capsule 100 mg 100 mg, Oral, 2 TIMES DAILY PRN, constipation, Starting on Sun07/10/23 at 1447, Hold for loose stools. lidocaine (LMX4) cream Topical, EVERY 1 HOUR PRN, pain, with VAD insertion, Starting on Sun07/10/23 at 1447, Apply at least 30 minutes prior to VAD insertion in divided doses as needed for size of site for insertion. MAX Dose: 2.5 g (?? of 5 g tube) Do NOT give if patient has a history of allergy to any local anesthetic or any juan antonio product. Do NOT use both lidocaine intradermal/subcutaneous injection and the lidocaine cream on the same site. lidocaine 1 % 0.1-1 mL 0.1-1 mL, Other, EVERY 1 HOUR PRN, mild pain with VAD insertion, Starting on Sun07/10/23 at 1447, MAX dose 1 mL subcutaneous OR intradermal along the side of the vein in divided doses as needed for VAD insertion. Do NOT give if patient has a history of allergy to any local anesthetic or any juan antonio product. Do NOT use both lidocaine intradermal/subcutaneous injection and the lidocaine cream on the same site. melatonin tablet 5 mg 5 mg, Oral, AT BEDTIME PRN, sleep, Starting on Sun07/10/23 at 1709 2011 ($Given - Provider: Yoli Grimes, RAN) naloxone (NARCAN) injection 0.2 mg(Linked Group 1) 0.2 mg, Intravenous, EVERY 2 MIN PRN, opioid reversal, Starting on Sun07/10/23 at 1611, Administer intravenous route when available and notify provider when administered. For unintended sedation or respiratory depression if all of the below criteria are met: ~ respiratory rate LESS than or EQUAL to 8. ~SaO2 less than 92% and or/end-tidal CO2 is greater than 50. ~ the patient is receiving an opioid, has unintended sedations assessed as RASS (-3), and is currently not on mechanical ventilation. RASS scale moderate (-3) is movement or eye opening to voice but no eye contact. Patient Monitoring Once the patient has demonstrated a response to the naloxone, continue to monitor respiratory rate, depth, oxygen saturation and end-tidal CO2 (if available) every 15 minutes x 2, then every 30 minutes x 2, then every 1 hour x 1 after each naloxone dose. Consider transfer to ICU if patient respiratory parameters have not improved after 4 naloxone doses. naloxone (NARCAN) injection 0.2 mg(Linked Group 1) 0.2 mg, Intramuscular, EVERY 2 MIN PRN, opioid reversal, Starting on Sun07/10/23 at 1611, Administer intramuscular if an intravenous route is not available and notify provider when administered. For unintended sedation or respiratory depression if all of the below criteria are met: ~ respiratory rate LESS than or EQUAL to 8. ~SaO2 less than 92% and or/end-tidal CO2 is greater than 50. ~ the patient is receiving an opioid, has unintended sedations assessed as RASS (-3), and is currently not on mechanical ventilation. RASS scale moderate (-3) is movement or eye opening to voice but no eye contact. Patient Monitoring Once the patient has demonstrated a response to the naloxone, continue to monitor respiratory rate, depth, oxygen saturation and end-tidal CO2 (if available) every 15 minutes x 2, then every 30 minutes x 2, then every 1 hour x 1 after each naloxone dose. Consider transfer to ICU if patient respiratory parameters have not improved after 4 naloxone doses. naloxone (NARCAN) injection 0.4 mg(Linked Group 1) 0.4 mg, Intravenous, EVERY 2 MIN PRN, opioid reversal, Starting on Sun07/10/23 at 1611, Administer intravenous route when available and notify provider when administered. For unintended sedation or respiratory depression if all of the below criteria are met: ~ respiratory rate LESS than or EQUAL to 8. ~ SaO2 less than 92% and or/end-tidal CO2 is greater than 50. ~ the patient is receiving an opioid, has unintended sedation assessed as RASS (-4) or (-5) and patient is currently not on mechanical ventilation. RASS scale (-4) is deep sedation with no response to voice but movement or eye opening to physical stimulation. RASS scale (-5) is unarousable. Patient Monitoring Once the patient has demonstrated a response to the naloxone, continue to monitor respiratory rate, depth, oxygen saturation and end-tidal CO2 (if available) every 15 minutes x 2, then every 30 minutes x 2, then every 1 hour x 1 after each naloxone dose. Consider transfer to ICU if patient respiratory parameters have not improved after 4 naloxone doses. naloxone (NARCAN) injection 0.4 mg(Linked Group 1) 0.4 mg, Intramuscular, EVERY 2 MIN PRN, opioid reversal, Starting on Sun07/10/23 at 1611, Administer intramuscular if an intravenous route is not available and notify provider when administered. For unintended sedation or respiratory depression if all of the below criteria are met: ~ respiratory rate LESS than or EQUAL to 8. ~ SaO2 less than 92% and or/end-tidal CO2 is greater than 50. ~ the patient is receiving an opioid, has unintended sedation assessed as RASS (-4) or (-5) and patient is currently not on mechanical ventilation. RASS scale (-4) is deep sedation with no response to voice but movement or eye opening to physical stimulation. RASS scale (-5) is unarousable. Patient Monitoring Once the patient has demonstrated a response to the naloxone, continue to monitor respiratory rate, depth, oxygen saturation and end-tidal CO2 (if available) every 15 minutes x 2, then every 30 minutes x 2, then every 1 hour x 1 after each naloxone dose. Consider transfer to ICU if patient respiratory parameters have not improved after 4 naloxone doses. ondansetron (ZOFRAN ODT) ODT tab 4 mg(Linked Group 2) 4 mg, Oral, EVERY 6 HOURS PRN, nausea, vomiting, Starting on Sun07/10/23 at 1447, This is Step 1 of nausea and vomiting management. If nausea not resolved in 15 minutes, go to Step 2 prochlorperazine (COMPAZINE). Do not push through foil backing. Peel back foil and gently remove. Place on tongue immediately. Administration with liquid unnecessary With dry hands, peel back foil backing and gently remove tablet. Do not push oral disintegrating tablet through foil backing. Administer immediately on tongue and oral disintegrating tablet dissolves in seconds, then swallow with saliva. Liquid not required. 1729 (See Alternative - Provider: Parmjit López RN) 1124 ($Given - Provider: Anju Hoffman, RAN) ondansetron (ZOFRAN) injection 4 mg(Linked Group 2) 4 mg, Intravenous, EVERY 6 HOURS PRN, nausea, vomiting, Administer over 2-5 Minutes, Starting on Sun07/10/23 at 1447, This is Step 1 of nausea and vomiting management. If nausea not resolved in 15 minutes, go to Step 2 prochlorperazine (COMPAZINE). Irritant. 1729 ($Given - Provider: Parmjit López RN) 1124 (See Alternative - Provider: Anju Hoffman, RN) oxyCODONE (ROXICODONE) tablet 10 mg(Linked Group 3) 10 mg, Oral, EVERY 4 HOURS PRN, severe pain, Starting on Sun07/10/23 at 1447, Hold oral PRN dose for analgesic side effects. Notify provider to assess for uncontrolled pain or analgesic side effects. Hold while on IV WATER TAXI CAPTAIN or with regular IV opioid dosing. 1635 (See Alternative - Provider: Parmjit López RN) oxyCODONE (ROXICODONE) tablet 5 mg(Linked Group 3) 5 mg, Oral, EVERY 4 HOURS PRN, moderate pain, Starting on Sun07/10/23 at 1447, Hold oral PRN dose for analgesic side effects. Notify provider to assess for uncontrolled pain or analgesic side effects. Hold while on IV WATER TAXI CAPTAIN or with regular IV opioid dosing. 1635 ($Given - Provider: Parmjit López RN) prochlorperazine (COMPAZINE) injection 5 mg(Linked Group 4) 5 mg, Intravenous, EVERY 6 HOURS PRN, nausea, vomiting, Administer over 1-2 Minutes, Starting on Sun07/10/23 at 1447, This is Step 2 of nausea and vomiting management. If nausea not resolved in 15-30 minutes, Notify provider. 1927 ($Given - Provider: Parmjit López RN) prochlorperazine (COMPAZINE) tablet 5 mg(Linked Group 4) 5 mg, Oral, EVERY 6 HOURS PRN, nausea, vomiting, Starting on Sun07/10/23 at 1447, This is Step 2 of nausea and vomiting management. If nausea not resolved in 15-30 minutes, Notify provider. 1927 (See Alternative - Provider: Parmjit López RN) sodium chloride (PF) 0.9% PF flush 3 mL 3 mL, Intracatheter, EVERY 1 MIN PRN, line flush, other, to ensure patency or to lock dormant line, Starting on Sun07/10/23 at 1447 Linked Groups Order Group 1: naloxone (NARCAN) injection 0.2 mgJump to med 0.2 mg, Intravenous, EVERY 2 MIN PRN, opioid reversal, Starting on Sun07/10/23 at 1611, Administer intravenous route when available and notify provider when administered. For unintended sedation or respiratory depression if all of the below criteria are met: ~ respiratory rate LESS than or EQUAL to 8. ~SaO2 less than 92% and or/end-tidal CO2 is greater than 50. ~ the patient is receiving an opioid, has unintended sedations assessed as RASS (-3), and is currently not on mechanical ventilation. RASS scale moderate (-3) is movement or eye opening to voice but no eye contact. Patient Monitoring Once the patient has demonstrated a response to the naloxone, continue to monitor respiratory rate, depth, oxygen saturation and end-tidal CO2 (if available) every 15 minutes x 2, then every 30 minutes x 2, then every 1 hour x 1 after each naloxone dose. Consider transfer to ICU if patient respiratory parameters have not improved after 4 naloxone doses. Or naloxone (NARCAN) injection 0.4 mgJump to med 0.4 mg, Intravenous, EVERY 2 MIN PRN, opioid reversal, Starting on Sun07/10/23 at 1611, Administer intravenous route when available and notify provider when administered. For unintended sedation or respiratory depression if all of the below criteria are met: ~ respiratory rate LESS than or EQUAL to 8. ~ SaO2 less than 92% and or/end-tidal CO2 is greater than 50. ~ the patient is receiving an opioid, has unintended sedation assessed as RASS (-4) or (-5) and patient is currently not on mechanical ventilation. RASS scale (-4) is deep sedation with no response to voice but movement or eye opening to physical stimulation. RASS scale (-5) is unarousable. Patient Monitoring Once the patient has demonstrated a response to the naloxone, continue to monitor respiratory rate, depth, oxygen saturation and end-tidal CO2 (if available) every 15 minutes x 2, then every 30 minutes x 2, then every 1 hour x 1 after each naloxone dose. Consider transfer to ICU if patient respiratory parameters have not improved after 4 naloxone doses. Or naloxone (NARCAN) injection 0.2 mgJump to med 0.2 mg, Intramuscular, EVERY 2 MIN PRN, opioid reversal, Starting on Sun07/10/23 at 1611, Administer intramuscular if an intravenous route is not available and notify provider when administered. For unintended sedation or respiratory depression if all of the below criteria are met: ~ respiratory rate LESS than or EQUAL to 8. ~SaO2 less than 92% and or/end-tidal CO2 is greater than 50. ~ the patient is receiving an opioid, has unintended sedations assessed as RASS (-3), and is currently not on mechanical ventilation. RASS scale moderate (-3) is movement or eye opening to voice but no eye contact. Patient Monitoring Once the patient has demonstrated a response to the naloxone, continue to monitor respiratory rate, depth, oxygen saturation and end-tidal CO2 (if available) every 15 minutes x 2, then every 30 minutes x 2, then every 1 hour x 1 after each naloxone dose. Consider transfer to ICU if patient respiratory parameters have not improved after 4 naloxone doses. Or naloxone (NARCAN) injection 0.4 mgJump to med 0.4 mg, Intramuscular, EVERY 2 MIN PRN, opioid reversal, Starting on Sun07/10/23 at 1611, Administer intramuscular if an intravenous route is not available and notify provider when administered. For unintended sedation or respiratory depression if all of the below criteria are met: ~ respiratory rate LESS than or EQUAL to 8. ~ SaO2 less than 92% and or/end-tidal CO2 is greater than 50. ~ the patient is receiving an opioid, has unintended sedation assessed as RASS (-4) or (-5) and patient is currently not on mechanical ventilation. RASS scale (-4) is deep sedation with no response to voice but movement or eye opening to physical stimulation. RASS scale (-5) is unarousable. Patient Monitoring Once the patient has demonstrated a response to the naloxone, continue to monitor respiratory rate, depth, oxygen saturation and end-tidal CO2 (if available) every 15 minutes x 2, then every 30 minutes x 2, then every 1 hour x 1 after each naloxone dose. Consider transfer to ICU if patient respiratory parameters have not improved after 4 naloxone doses. Group 2: ondansetron (ZOFRAN ODT) ODT tab 4 mgJump to med 4 mg, Oral, EVERY 6 HOURS PRN, nausea, vomiting, Starting on Sun07/10/23 at 1447, This is Step 1 of nausea and vomiting management. If nausea not resolved in 15 minutes, go to Step 2 prochlorperazine (COMPAZINE). Do not push through foil backing. Peel back foil and gently remove. Place on tongue immediately. Administration with liquid unnecessary With dry hands, peel back foil backing and gently remove tablet. Do not push oral disintegrating tablet through foil backing. Administer immediately on tongue and oral disintegrating tablet dissolves in seconds, then swallow with saliva. Liquid not required. Or ondansetron (ZOFRAN) injection 4 mgJump to med 4 mg, Intravenous, EVERY 6 HOURS PRN, nausea, vomiting, Administer over 2-5 Minutes, Starting on Sun07/10/23 at 1447, This is Step 1 of nausea and vomiting management. If nausea not resolved in 15 minutes, go to Step 2 prochlorperazine (COMPAZINE). Irritant. Group 3: oxyCODONE (ROXICODONE) tablet 5 mgJump to med 5 mg, Oral, EVERY 4 HOURS PRN, moderate pain, Starting on Sun07/10/23 at 1447, Hold oral PRN dose for analgesic side effects. Notify provider to assess for uncontrolled pain or analgesic side effects. Hold while on IV WATER TAXI CAPTAIN or with regular IV opioid dosing. Or oxyCODONE (ROXICODONE) tablet 10 mgJump to med 10 mg, Oral, EVERY 4 HOURS PRN, severe pain, Starting on Sun07/10/23 at 1447, Hold oral PRN dose for analgesic side effects. Notify provider to assess for uncontrolled pain or analgesic side effects. Hold while on IV WATER TAXI CAPTAIN or with regular IV opioid dosing. Group 4: prochlorperazine (COMPAZINE) injection 5 mgJump to med 5 mg, Intravenous, EVERY 6 HOURS PRN, nausea, vomiting, Administer over 1-2 Minutes, Starting on Sun07/10/23 at 1447, This is Step 2 of nausea and vomiting management. If nausea not resolved in 15-30 minutes, Notify provider. Or prochlorperazine (COMPAZINE) tablet 5 mgJump to med 5 mg, Oral, EVERY 6 HOURS PRN, nausea, vomiting, Starting on Sun07/10/23 at 1447, This is Step 2 of nausea and vomiting management. If nausea not resolved in 15- 30 minutes, Notify provider. documented in this encounter Care Teams Electric Sign Assembler Relationship Specialty Start Date End Date No Ref-Primary, Physician PCP - General 07/10/23 documented as of this encounter
--- OUTSIDE RECORDS SUMMARY | 2023-10-25 10:07 | XMS_ITS | Encounter Summary ---
Author Name Unknown Organization [facility] Address [address] [place] [id number] Care Team Providers Care Surveillance Technician Name Role Phone No Ref-Primary, Physician Primary Care Provider Encounter Details Date Type Department Care Team (Latest Contact Info) Description 07/10/2023 Travel Social History Tobacco Use Types Packs/Day Years [...] on file documented as of this encounter Plan of Treatment Not on file documented as of this encounter Visit Diagnoses Not on filedocumented in this encounter Care Teams Surveillance Technician Relationship Specialty Start Date End Date No Ref-Primary, Physician PCP - General 07/10/23 documented as of this encounter
--- OUTSIDE RECORDS SUMMARY | 2023-10-25 10:07 | XMS_ITS | Clinical Summary ---
Author Name Unknown Organization [facility] Address [address] [place] [id number] Care Team Providers Care Order Entry Clerk Name Role Phone No Ref-Primary, Physician Primary Care Provider Allergies No known active allergies Medications Medication Sig Dispensed Refills Start Date End Date Status omeprazole (EQ OMEPRAZOLE) 20 MG tablet Take 1 tablet (20 mg) by mouth daily 30 tablet 0 03/31/2014 Active fish oil-omega-3 fatty acids (OMEGA 3) 1000 MG capsule Take 1 capsule (1 g) by mouth daily 90 capsule 0 03/31/2014 Active multivitamin, therapeutic with minerals (MULTI-VITAMIN) TABS Take 1 tablet by mouth daily 100 tablet 3 03/31/2014 Active minocycline (MINOCIN,DYNACIN) 100 MG capsule Take 1 capsule (100 mg) by mouth 2 times daily 180 capsule 3 03/31/2014 Active tadalafil (CIALIS) 5 MG tabletIndications: BPH (benign prostatic hypertrophy) Take 1 tablet (5 mg) by mouth daily Never use with nitroglycerin, terazosin or doxazosin. 90 tablet 3 05/13/2014 Active atorvastatin (LIPITOR) 40 MG tablet Take 40 mg by mouth daily 0 Active cetirizine (ZYRTEC) 10 MG tablet Take 10 mg by mouth daily 0 Active coenzyme Q-10 capsule Take 1 capsule by mouth daily 0 Active diphenhydrAMINE (BENADRYL) 25 MG tablet Take 25 mg by mouth 2 times daily as needed 0 Active hydrochlorothiazid e (HYDRODIURIL) 12.5 MG tablet Take 12.5 mg by mouth every morning 0 Active lisinopril (ZESTRIL) 20 MG tablet Take 20 mg by mouth daily 0 Active metoprolol succinate ER (TOPROL XL) 25 MG 24 hr tablet Take 25 mg by mouth 2 times daily 0 Active aspirin 81 MG EC tablet Take 1 tablet (81 mg) by mouth daily 0 07/15/2023 Active oxyCODONE (ROXICODONE) 5 MG tabletIndications: Prostate cancer (H) Take 1 tablet (5 mg) by mouth every 6 hours as needed for moderate to severe pain 10 tablet 0 07/11/2023 Active docusate sodium (COLACE) 100 MG capsuleIndications :Prostate cancer (H) Take 1 capsule (100 mg) by mouth 2 times daily as needed for constipation 30 capsule 0 07/11/2023 Active ondansetron (ZOFRAN ODT) 4 MG ODT tabIndications:Pro state cancer (H) Take 1 tablet (4 mg) by mouth every 8 hours as needed for nausea 10 tablet 0 07/11/2023 Active Active Problems Problem Noted Date Diagnosed Date Prostate cancer 07/10/2023 BPH (benign prostatic hypertrophy) 05/14/2014 HTN (hypertension) 03/31/2014 Hyperlipidemia with target LDL less than 130 04/2014 Overview: Diagnosis updated by automated process. Provider to review and confirm. Overweight 03/31/2014 Overview: Problem list name updated by automated process. Provider to review Inguinal hernia 03/31/2014 Immunizations Name Administration Dates Next Due TDAP (Adacel,Boostrix) 12/20/2008 Family History Medical History Relation Comments Diabetes Maternal Grandfather Cancer - colorectal Maternal Grandmother Prostate Cancer No family hx of Relation Status Comments Father stroke Maternal Grandfather Maternal Grandmother Mother (Age 72) stroke Social History Tobacco Use Types Packs/Day Years [...] on file Sexual Orientation Not on file Last Filed Vital Signs Vital Sign Reading Time Taken Comments Blood Pressure 140/67 07/11/2023 7:00 AM CDT Pulse 77 07/11/2023 7:00 AM CDT Temperature 36.6 ??C (97.8 ??F) 07/11/2023 7:00 AM CD T Respiratory Rate 16 07/11/2023 7:00 AM CDT Oxygen Saturation 99% 07/11/2023 7:00 AM CDT Inhaled Oxygen Concentration - - Weight 114.5 kg (252 lb 8 oz) 07/10/2023 6:02 AM CDT Height 174 cm (5' 8.5) 07/10/2023 6:02 AM CDT Body Mass Index 37.83 07/10/2023 6:02 AM CDT Plan of Treatment Health Maintenance Due Date Last Done Comments ADVANCE CARE PLANNING 1955 ANNUAL REVIEW OF HM ORDERS 1956 CT COLONOGRAPHY 1956 FIT 1956 FLEX SIG 1956 sDNA (Cologuard) 1956 COLONOSCOPY 1966 COLORECTAL CANCER SCREENING 1966 HEPATITIS C SCREENING 1974 ZOSTER IMMUNIZATION (1 of 2) 1975 Pneumococcal Vaccine: 65+ Years (2 of 2 - PCV) 02/04/2005 02/05/2004 LUNG CANCER SCREENING 2006 RSV VACCINE ( & 60+) (1 - 1-dose 60+ series) 2016 DTAP/TDAP/TD IMMUNIZATION (2 - Td or Tdap) 12/20/2018 12/20/2008, 02/05/2004 LIPID 03/31/2019 03/31/2014 AORTIC ANEURYSM SCREENING (SYSTEM ASSIGNED) 2021 FALL RISK ASSESSMENT 2021 MEDICARE ANNUAL WELLNESS VISIT 2021 03/31/2014 COVID-19 Vaccine ( season) 2023 07/19/2022, 08/07/2021, 12/22/2020, Additional history exists INFLUENZA VACCINE (#1) 2023 2, 07/19/2022, 08/24/2021, Additional history exists PHQ-2 (once per calendar year) 2023 HPV IMMUNIZATION Aged Out No longer e ligible based on patient's age to complete this topic IPV IMMUNIZATION Aged Out No longer e ligible based on patient's age to complete this topic MENINGITIS IMMUNIZATION Aged Out No l onger eligible based on patient's age to complete this topic RSV MONOCLONAL ANTIBODY Aged Out No l onger eligible based on patient's age to complete this topic Advance Directives For more information, please contact: [phone] Latest Code Status on File Code Status Date Activated Date Inactivated Comments Full Code 07/10/2023 2:47 PM 07/11/2023 1:56 PM All basic and advanced life-sustaining interventions are performed as appropriate Question Answer Comments Code status determined by: Unable to discuss and no AD/POLST on file; continue PREVIOUSLY ORDERED code status Care Teams Order Entry Clerk Relationship Specialty Start Date End Date No Ref-Primary, Physician PCP - General 07/10/23
--- OUTSIDE RECORDS SUMMARY | 2023-10-25 10:07 | XMS_ITS | Referral Summary ---
Author Name Unknown Organization [facility] Address [address] [place] [id number] Care Team Providers Care Wire Basket Maker Name Role Phone No Ref-Primary, Physician Primary [...] Administration Dates Next Due TDAP (Adacel,Boostrix) 12/20/2008 Social History Tobacco Use Types Packs/Day Years [...] 07/10/2023 6:02 AM CDT Plan of Treatment Not on file Advance Directives For more information, please contact: [phone] Latest Code Status on File Code Status Date Activated Date Inactivated Comments Full Code 07/10/2023 2:47 PM 07/11/2023 1:56 PM All basic and advanced life-sustaining interventions are performed as appropriate Question Answer Comments Code status determined by: Unable to discuss and no AD/POLST on file; continue PREVIOUSLY ORDERED code status Care Teams Wire Basket Maker Relationship Specialty Start Date End Date No Ref-Primary, Physician PCP - General 07/10/23
--- OUTSIDE RECORDS SUMMARY | 2023-10-25 10:07 | XMS_ITS | Data Portability ---
Author Name Unknown Address [address] [place] [address] Phone [phone] Organization [facility], [facility] Address [address] [place] [address] Care Team Providers Care Ammunition Officer Name Role Phone JUAN JOSE MOHAMUD Primary Care Provider Assessment Encounter Date Assessment Date Assessment LastModified by Organization Details LastModified Time 06/28/2022 06/28/2022 Of note a total of 20 minutes was spent: preparing to see the patient by reviewing records, images, and laboratory data; obtaining/reviewi ng separately obtained history; performing physical examination, counseling and educating patient/family/ca regiver; ordering appropriate medications, labs, imaging or procedures; documenting the clinical encounter; and coordination of care. Not available 06/28/2022 17:26:00 04/27/2023 04/27/2023 67M with newly-diagnosed intermediate risk prostate cancer. His biopsy has Barbara 3+3=6 cancer but Decipher shows higher risk disease. I have recommended he consider treatment with surgery or RT. I had a long discussion with the patient about the natural history of intermediate-risk prostate cancer and my recommendation for definitive local treatment. We talked about treatment options for localized prostate cancer including surgery and radiation. I explained that surgery and radiation have similar oncologic outcomes but differences in side effects. We talked at length about radical prostatectomy and pelvic lymphadenectomy, both robotic and open approaches including expected post-operative course and the risk of urinary and sexual side effects. ??We discussed that some prostate cancers will recur after surgery and may require additional treatment beyond surgery. I do think that he is a good candidate for robotic prostatectomy.?? He was offered a radiation oncology consult and declined this as he would like to move forward with surgery. I had a discussion with the patient about the details of robotic prostatectomy and that this will involve removing his prostate, seminal vesicles and pelvic lymph nodes. We discussed that while the goal of this operation is to cure his cancer, in some cases this is not possible and he may require additional treatments for his cancer. We discussed possible effects on urinary function including temporary and sometimes permanent incontinence and the possibility of erectile dysfunction. We discussed risks of the procedure including urine leak, lymphocele, blood loss requiring transfusion, injury to nerves, blood vessels, or bowel that could require additional procedures. We discussed risk of infection. We also discussed risks of anesthesia including blood clots, cardiopulmonary complications, and the risk of mortality. He had an opportunity to ask questions and wishes to proceed. - schedule RALP + PLND 35 min total time ryan Not available 04/27/2023 08:52:55 07/20/2023 07/20/2023 67M s/p RALP + PLND on 07/10/23 for pT3aN0 Clarkston 3+3=6 prostate cancer (-SMS, -LVI, 0/4 LN). We discussed the pathology report in detail, and I explained the risk of recurrence and need for ongoing follow-up for PSA monitoring. We will check the first post-op PSA about 8 weeks from date of surgery. We also discussed expectations for recovery of continence and the importance of Kegel exercises. 1. Prostate cancer - Barry out today - finish antibiotics as prescribed - on pde5i and will continue this - continue lifting/activity restrictions x6 weeks post-op - reviewed Kaya, handout provided - f/u in 7 weeks (week of September 03) with PSA with Dr. Carrera [email or web address] Not available 07/20/2023 11:28:29 09/06/2023 09/06/2023 68M s/p RALP + PLND on 07/10/23 for pT3aN0 Clarkston 3+3=6 prostate cancer (-SMS, -LVI, 0/4 LN). 1) Prostate cancer. NASIM. - f/u 4 months with PSA 2) ED - sildenafil 20/100; discussed side effects and way to take - rx provided 3) EDMOND, mild - cont Kaya davis Not available 09/06/2023 12:34:51 Plan of Treatment Reminders Order Date Submit Date Provider Last Modified By Organization Details Last Modified Time Details Appointments PSA 2023 03:00P M [facility] Not available Not available Not available ESTABL ISHED 2023 03:20P M Arvin fernandes MD, PHD Not available Not available Not available Lab PSA, serum or plasma 2022 023 [email or web address] [facility], [address], [place], [address], 09/06/2023 12:33:49 PSA, serum or plasma 2022 023 [facility], [address], [place], [address], 01/24/2023 15:43:50 PSA, total, serum or plasma 2022 023 [email or web address] [facility], [address], [place], [address], 04/26/2023 16:41:41 Referral None record ed. Procedures None record ed. Surgeries None record ed. Imaging MRI, prosta te, w/wo contra st 2022 023 [email or web address] [facility], [address], [place], [address], 01/26/2023 15:59:21 Medication Orders silden afil (pulmo nary hypert ension ) 20 mg tablet 2022 023 [id number], [address], [place], [address], 09/06/2023 12:33:50 ceftri axone 1 gram soluti on for inject ion 2022 023 [facility] [address] [place] [place], [address], 03/15/2023 12:56:38 ceftri axone 1 gram soluti on for inject ion 2021 022 [id number], [address], [place], [address], 03/15/2023 12:56:38 Patient TargetsNo targets recorded. Patient Instructions Encounter Date Encounter Id Patient Instructions Last Modified By Organization Details Last Modified Time 03/15/2023 [id number] Of note a total of {{ 15 20 25 30* 35 40 45 50 55 60}} minutes was spent: preparing to see the patient by reviewing records, images, and laboratory data; obtaining/reviewing separately obtained history; performing physical examination, counseling and educating patient/family/career coach; ordering appropriate medications, labs, imaging or procedures; documenting the clinical encounter; and coordination of care. Not available 03/15/2023 13:46:25 I had a long discussion (total 30 minute consultation was spent in direct counseling) regarding the diagnosis of prostate cancer and its treatment options. I told him that prostate cancer is the most common cancer in men in the [place] and that with PSA screening and emerging public awareness of the disease, prostate cancer is being diagnosed with greater frequency and fortunately at an earlier stage. We briefly discussed the controversies regarding PSA screening for prostate cancer. We discussed the treatment options for localized disease, reviewing the potential complications and advantages of each therapeutic modality. I mentioned that for some men, watchful waiting or active surveillance may be an appropriate option. Prostate cancer can sometimes behave in a relatively indolent manner, and for those who have other comorbidities or advanced age, simply following the patient and reserving treatment for clinical symptoms may be the best option. Unfortunately, we do not know which cancers will behave in this manner and which ones will be more aggressive. Obviously there is a risk of spread of the cancer and continued local growth if the cancer is not treated. I then discussed radiation therapy, both as external beam and interstitial brachytherapy. We talked about the potential side effects of radiation cystitis, radiation proctitis, impotence, fistula formation, and incontinence. I then talked about surgery, specifically radical prostatectomy. This can be performed either open or robotic-assisted laparoscopically, with similar outcomes. I told him that there is a risk of bleeding requiring blood transfusion (about 5-10%), infection, wound complications, rectal injury, DVT/PE, erectile dysfunction (20-70%), bladder neck contracture (3%) and incontinence (severe enough to require further therapy in 3-5%). The advantage of surgery is that we would be able to analyze the specimen and the regional lymph nodes, thereby knowing the true pathologic stage of the disease. This would allow us to better gauge his prognosis, and possibly guide decisions regarding adjuvant therapies such as radiation or hormone therapy. We also discussed some of the newer technologies, such as cryotherapy and proton beam therapy, though it is still too early to know what the long-term outcomes are for these treatments. I then discussed the surgery and the perioperative management. I believe that he would be an appropriate candidate for a robotic-assisted laparoscopic approach utilizing the Deltagen robotic system. He would have a catheter in place for about 7-10 days. A drain will be placed and removed prior to his discharge from the hospital, typically in about 1-2 days. I warned the patient that it is common to have some incontinence immediately after the catheter is removed, but this usually quickly improves. Usually by about 6 months, nearly 80% of patients will have regained their continence, and nearly all patients by 1 year. Erectile function may take 1, even 2 years to improve, though this is variable. We talked about some of the treatments for erectile dysfunction, including oral therapies, injections, pump, and penile prosthetics. We also briefly touched upon management for persistent incontinence, should that be a problem, including pads, artificial sphincters, and injectable therapies. Postoperatively, I would continue to follow him at regular intervals with PSA? s and exams to ensure that the prostate cancer does not come back. I encouraged the patient to seek out other opinions and offered a consultation with a radiation oncologist. We discussed at length the treatment options for Ca, localized and otherwise. This included , hormonal tx, surgery by robot and more traditional options with open surgery. We also discussed brachytreatment for CAP. I outlined the risks of each therapy including the impact on cure, FLAKITO recurrence, ED, EjD and EDMOND. I also discussed blood loss and strategies to replace it. ASSESSMENT/PLAN: Long discussion was held regarding the results of most recent biopsy. Although it is possible, the biopsy may not be reflective of the actual cancer. Option of active surveillance remains. If he chooses to come off active surveillance - his options would be surgery vs radiation. Surgery was discussed extensively since patient is leaning in that direction. Radical prostatectomy is the surgical option for treating of prostate cancer. The contemporary gold standard is robotic-assisted laparoscopic radical prostatectomy procedure. It involves surgical removal of prostate, seminal vesicles and pelvic lymph nodes. The risks of the operation are incontinence at about 5%, erectile dysfunction, inadvertent injury to adjacent organs, infection, bleeding, MO, thromboembolism, stroke or . The risk of erectile dysfunction is dependent on pre-operative level of function and the degree of nerve-sparing. Bilateral neurovascular bundle preservation is possible during the operation in order to maximize post-operative level of function. It also increases the chance of a positive surgical margin, especially if higher volume and higher Clarkston score disease is present. The risk of post-prostatectomy incontinence long-term is about 5% or less an is treated with Kegel exercises or pelvic floor physical therapy procedure involves a hospitalization of 1-2 days, indwelling Barry catheter for about a week, and possible need for a temporary surgical drain. All of the incisions are small, with only one of the incisions slightly longer than others, needed to extract the prostate. The resultant recovery time is quicker, possibly as short as 2-3 weeks. The robotic approach is favored because of improved visualization and decreased blood loss. The recovery time is also less compared to the open approach. He will think about his options and let us know. We need to wait 2 months after the biopsy before proceeding with the surgery Not available 03/15/2023 13:45:54 04/24/2022 [id number] Follow up on Exo Dx with Dr. Vito [email or web address] Not available 04/24/2022 14:23:48 Reason for Referral None Reported. Results Created Date Observation Date Name Description Value Unit Range Abnormal Flag LastModifiedBy Organization Detail LastModifiedTime 01/25/2001/24/2023 PSA, serum or plasm a PSA 8.1 ng/mL 0-4.0 Not Available [facility] [address], [place], [address], 01/24/2023 15:43:33 09/06/2009/06/2023 PSA, serum or plasm a PSA <0.04 ng/ml 0-4.0 Not Available [facility] [address], [place], [address], 09/03/2023 14:26:12 09/29/19 21 09/29/2020 MRI, prost ate, w/wo contr ast No observ ation record ed. [email or web address] [facility] [address], [place], [address], 10/04/2020 14:42:32 06/15/20 22 06/14/2022 US, prost ate No observ ation record ed. Not Available 06/28/2022 17:14:10 02/07/20 23 02/02/2023 MR arenas s prost ate wwo contr ast EXAM: MRI PELVIS PROSTA TE PROTOC OL LOCATI ON: [facility] DATE/T CHRIS: 023 2:58 PM CDT INDICA TION: Elevat ed prosta te specif ic antige n [PSA] COMPAR RHONDA: 09/29/20 . TECHNI QUE: Routin e MRI prosta te protoc ol includ ing T1, diffus ion, thin sectio n high resolu tion T2 and dynami c T1 thin sectio n withou t follow ed by with IV contra st. Study was proces sed using DynaCa d multip aramet mak comput er-aid ed detect ion system to optimi ze radiol ogist interp retati on by genera ting multip lanar and 3D recons tructi ons and creati ng subtra ction images from the dynami c contra st data. CONTRA ST: [address], 5 mg Diazep am (Valiu m) Oral Soluti on Discar ded: [address], 0 mg Diazep am (Valiu m) Oral Soluti on FINDIN GS: PERIPH ERAL ZONE: Indist inct hypoin tensit y on the ADC map. No focal lesion s. TRANSI TIONAL ZONE: Lesion 1. 2.7 x 1.0 x 1.5 cm focus in the midlin e anteri or transi tional zone (serie s 15 images 14-17) . T2 appear ance: Hetero geneou s signal intens ity with obscur ed margin s. Diffus ion-We ighted Imagin g: Focal hypoin tense on ADC and/or focal hyperi ntense on DWI. Enhanc ement: Positi ve. Prosta te margin : Indete rminat e. Broad contac t withou t defini te extrac apsula r extens ion. T2 appear ance meets PI-RAD S catego ry: 3 but DWI elevat es to PI-RAD S 4. Region of intere st create d for biopsy and/or follow -up. No semina l vesicl e invasi on. No pelvic lympha denopa thy. No lesion s in the visual ized bones. PROSTA TE GLAND VOLUME : 33.7 cc Case review ed with Dr. Martinez who concur s with faby gs. IMPRES VIOLET: 1. Lesion 1 in the anteri or transi tional zone is assign ed PI-RAD S CATEGO RY 4: High. Clinic ally signif icant cancer is likely to be presen t. This report was electr onical ly interp reted by: DR. Rose Boyle M.D. [email or web address] [facility] [address], [address], 02/20/2023 10:11:08 Result Notes None recorded. 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 Procedures Surgical History Date Name Laterality Status Provider Name and Address Organization Details Recorded Time 09/06/20 23 NOC ENGINEER/blood draw completed Antonieta farley [facility] 09/03/2023 14:25:52 03/02/20 23 Prostate Biopsy Procedure completed Chava Musa MD [address] [facility],[address], [place], [address], [facility] 03/02/2023 14:55:39 03/02/20 23 URONAV completed Chava Musa MD [address] [place] [address],[address], [place], [address], [facility] 03/02/2023 10:01:17 01/25/20 23 Blood Draw/NOC ENGINEER/PSA RESULTS completed Chet Padron MD [address] [place] [address],[facility] [address], [address], [facility] 01/24/2023 17:40:18 06/14/20 22 Prostate Biopsy Procedure completed Chet Padron MD [address] [place] [address],[address], [place], [address], [facility] 06/14/2022 13:45:36 06/14/20 22 Roceph[facility] 06/14/2022 16:32:58 08/13/20 12 Biopsy of prostate completed Not Available [facility] 03/04/2020 20:49:39 08/13/20 12 Njx aa&/strd other pn/branch completed Not Available [facility] 03/04/2020 20:49:39 07/26/20 12 urine capacity measure completed Not Available [facility] 03/04/2020 20:49:39 Hernia Repair completed Mary farley, [facility] 08/23/2020 10:12:19 Colonoscopy completed Chet Padron MD [address] [place] [address],[address], [place], [address], [facility] 01/24/2023 15:42:55 Imaging Results Imaging Date Name Status LastModified by [facility] Details LastModified Time 09/29/2020 MRI, prostate, w/wo contrast completed [email or web address] [facility] [address], [place], [address], 10/04/2020 14:42:32 06/14/2022 US, prostate completed Information not available 06/28/2022 17:14:10 02/02/2023 MR pelvis prostate wwo contrast completed [email or web address] [facility] - [address], [place], [address], 02/20/2023 10:11:08 Procedure Notes None recorded. Medical Equipment None Reported. Allergies Allergen ID Allergen Name Allergen Category Reaction Reaction Severity Criticality Documentation Date Start Date Code Code System Note Provider Name and Address Organization Details Recorded Time [id number] bee pollen environme nt,medica tion Not available Not available Not available 03/03/2020 99931 7 RxNorm Not Available [facility] 0 23:53:45 Medications Name Sig Start Date Stop Date Status Note LastModified by Organization Details LastModified Time losartan 50 mg tablet TAKE ONE TABLET BY MOUTH EVERY DAY active Not Available Not Available No t Available atorvastati n 40 mg tablet TAKE ONE TABLET BY MOUTH AT BEDTIME LABS/PHYS ICAL DUE FOR REFILLS active Not Available Not Available No t Available azithromyci n 250 mg tablet TAKE 2 TABLETS BY MOUTH DAY 1, THEN TAKE 1 TABLET BY MOUTH ONCE DAILY DAYS 2-5 01/24 completed Not Available Not Available Not Available metoprolol succinate ER 50 mg tablet,exte nded release 24 hr TAKE ONE TABLET BY MOUTH TWICE A DAY active Not Available Not Available No t Available hydrocodone 5 mg-acetamin ophen 325 mg tablet TAKE ONE TO TWO TABLETS BY MOUTH EVERY 4 HOURS NEEDED 01/24 completed Not Available Not Available Not Available promethazin e 6.25 mg/5 mL oral syrup TAKE 5 TO 10 ML BY MOUTH AT BEDTIME NEEDED FOR COUGH 03/15 completed Not Available Not Available Not Available minocycline 100 mg capsule TAKE ONE CAPSULE BY MOUTH TWICE A DAY . active Not Available Not Available No t Available sucralfate 1 gram tablet TAKE ONE TABLET BY MOUTH FOUR TIMES A DAY NEEDED active Not Available Not Available No t Available lisinopril 20 mg tablet active Not Available Not Available Not Available ondansetron HCl 4 mg tablet TAKE ONE TABLET BY MOUTH EVERY 6 HOURS NEEDED NAUSEA AND VOMITING 01/24 completed Not Available Not Available Not Available prednisone 20 mg tablet TAKE ONE TABLET BY MOUTH TWICE A DAY 01/24 completed Not Available Not Available Not Available amlodipine 5 mg tablet TAKE 1 TABLET BY MOUTH AT BEDTIME. 07/20 completed Not Available Not Available Not Available ciprofloxac in 500 mg tablet TAKE ONE TABLET BY MOUTH TWICE A DAY active Not Available Not Available No t Available ceftriaxone 1 gram solution for injection Take 1 g by injection route. 03/15 completed Not Available Not Available Not Available tamsulosin 0.4 mg capsule TAKE ONE CAPSULE BY MOUTH EVERY DAY 01/24 completed Not Available Not Available Not Available diazepam 2 mg tablet TAKE 1 TABLET BY MOUTH ONE HOUR PRIOR TO PROCEDURE , MAY TAKE ADDITIONA L TABLET IF NEEDED. 01/24 completed Not Available Not Available Not Available benzonatate 100 mg capsule TAKE 1-2 CAPSULES BY MOUTH TWO TO THREE TIMES A DAY NEEDED FOR COUGH 01/24 completed Not Available Not Available Not Available lisinopril 10 mg tablet TAKE ONE TABLET BY MOUTH EVERY DAY, APPOINTME NT DUE IN JUNE 28 completed Not Available Not Available Not Available omeprazole 20 mg capsule,del ayed release active Not Available Not Available Not Available codeine 10 mg-guaifene sin 100 mg/5 mL oral liquid TAKE 5 ML BY MOUTH EVERY 4 TO 6 HOURS NEEDED FOR COUGH 01/24 completed Not Available Not Available Not Available metoprolol succinate ER 25 mg tablet,exte nded release 24 hr TAKE ONE TABLET BY MOUTH TWICE A DAY active Not Available Not Available No t Available diazepam 10 mg tablet TAKE 1 TABLET BY MOUTH 1 HOUR PRIOR TO MRI, DO NOT DRIVE AFTER TAKING 01/24 completed Not Available Not Available Not Available methylpredn isolone 4 mg tablets in a dose pack TAKE DIRECTED 01/24 completed Not Available Not Available Not Available ipratropium bromide 42 mcg (0.06 %) nasal spray INHALE 2 SPRAYS INTO BOTH NOSTRILS 3 TIMES A DAY 01/24 completed Not Available Not Available Not Available oxybutynin chloride 5 mg tablet TAKE 1 TABLET BY MOUTH THREE TIMES DAILY active Not Available Not Available No t Available ondansetron 4 mg disintegrat ing tablet DISSOLVE ONE TABLET BY MOUTH EVERY 6 HOURS NEEDED active Not Available Not Available No t Available doxycycline hyclate 100 mg tablet TAKE ONE TABLET BY MOUTH TWICE A DAY , STOP MINOCYCLI NE WHILE ON DOXYCYCLI NE 01/24 completed Not Available Not Available Not Available oxycodone 5 mg tablet active Not Available Not Available No t Available sildenafil (pulmonary hypertensio n) 20 mg tablet TAKE 5 TABLETS BY MOUTH 1 HR PRIOR TO SEXUAL ACTIVITY active Not Available Not Available No t Available atorvastati n 01/24 completed Not Available Not Available Not Available aspirin active Not Available Not Avail able Not Available omeprazole 01/24 completed Not Available Not Available Not Available lisinopril 01/24 completed Not Available Not Available Not Available minocycline 01/24 completed Not Available Not Available Not Available hydrochloro thiazide 12.5 mg tablet TAKE ONE TABLET BY MOUTH EVERY MORNING active Not Available Not Available No t Available Flovent Diskus 50 mcg/actuati on powder for inhalation INHALE ONE PUFF BY MOUTH TWICE A DAY 01/24 completed Not Available Not Available Not Available [facility] COVID-19 Antigen Rapid Home Test kit USE DIRECTED 01/24 completed Not Available Not Available Not Available Vitals Date Recorded Body height Body mass index (BMI) Body weight Provider Name and Address Organization Details Last Updated DateTime 06/28/2022 172.72 cm 35.7 kg/m2 515017.[address] [facility] 06/28/2022 16:25:54 Date Recorded Body height Body mass index (BMI) Body weight Provider Name and Address Organization Details Last Updated DateTime 01/24/2023 172.72 cm 35.7 kg/m2 410439.[address] [facility] 01/24/2023 15:35:08 Date Recorded Body height Provider Name an d Address Organization Details Last Updated DateTime 03/02/2023 172.72 cm Paty farley [facility] 03/02/2023 14:30:06 Date Recorded Body height Body mass index (BMI) Body weight Provider Name and Address Organization Details Last Updated DateTime 03/15/2023 172.72 cm 35.7 kg/m2 642990.[address] [facility] 03/15/2023 12:56:31 Date Recorded Body height Body mass index (BMI) Body weight Provider Name and Address Organization Details Last Updated DateTime 04/27/2023 172.72 cm 35.7 kg/m2 632185.21 g [facility] [facility] 04/27/2023 08:30:22 Date Recorded Body height Provider Name an d Address Organization Details Last Updated DateTime 07/20/2023 172.72 cm Adriana issa [facility] 07/20/2023 10:42:52 Date Recorded Body height Body mass index (BMI) Body weight Provider Name and Address Organization Details Last Updated DateTime 09/06/2023 172.72 cm 35.7 kg/m2 356423.21 g Daryl Travis [facility] 09/06/2023 12:00:10 Date Recorded Body height Body mass index (BMI) Body weight Provider Name and Address Organization Details Last Updated DateTime 08/23/2020 172.72 cm 35.7 kg/m2 013963.21 g Mary Abdi [facility] 08/23/2020 10:09:14 Social History Question Answer Notes LastModified by Organizat ion Details LastModified Time Tobacco Smoking Status Former Smoker Not Available [facility] 03/04/2020 02:17:19 What Is Your Level Of Alcohol Consumption? Occasional [email or web address] Information not available 04/27/2023 How Many Times Per Week Do You Consume Alcohol? Less Than 1 Time Per Week [email or web address] Information not available 04/27/2023 What Is Your Level Of Caffeine Consumption? Moderate [email or web address] Information not available 04/27/2023 Do You Or Have You Ever Used E-cigarettes Or Vape? Never Used Electronic Cigarettes [email or web address] Information not available 08/23/2020 When Did You Quit Smoking? 16+yearssincel astcigarette [email or web address] Information not available 04/27/2023 Race White Information n ot available 03/04/2020 Marital Status Informati on not available 03/04/2020 What Was The Date Of Your Most Recent Tobacco Screening? 09/06/2023 [email or web address] Information not available 09/06/2023 Do You Use Any Illicit Or Recreational Drugs? No [email or web address] Information not available 04/27/2023 Has Tobacco Cessation Counseling Been Provided? No [email or web address] Information not available 04/27/2023 Do You Or Have You Ever Used Any Other Forms Of Tobacco Or Nicotine? No [email or web address] Information not available 04/27/2023 Sex: Male Functional Status None recorded. Mental Status None recorded. Family History Relationship Description Onset Age of this Age Resolved Age Notes Mother Leukemia Notes:Strokes:Father Asthm a:Daughter Depression:Father Diabetes:Grandmother Hypertension:Father Leukemia:Mother Hyperlipidemia:Father Thyroid problems:Sister Heart disease:Father Heart disease:Grandfather Cancer, colon:Grandmother Strokes:Mother Cancer, lung:Grandfather Medical History Condition Response High Blood Pressure Y Kidney Stones Y Depression N Lung Disease N GERD/Acid Reflux Y Sexually Transmitted Infection N Cancer Y High Cholesterol Y Diabetes N Bleeding Disorder N Immunizations Vaccine Type Date Status Provider Name and Address Organization Details Recorded Time COVID-19, mRNA, LNP-S, PF, 50 mcg/0.5 mL 08/12/[address] [facility] 09/06/2023 12:00:18 influenza, recombinant, quadrivalent,injecta ble, preservative free 07/23/[address] [facility] 04/27/2023 08:30:29 Influenza vaccine, quadrivalent, adjuvanted 08/24/2021 completed Mar farley, [facility] 04/27/2023 08:30:30 COVID-19, mRNA, LNP-S, PF, 100 mcg/0.5mL dose or 50 mcg/0.25mL dose 11/24/2020 completed Mar farley, [facility] 04/27/2023 08:30:30 COVID-19, mRNA, LNP-S, PF, 100 mcg/0.5mL dose or 50 mcg/0.25mL dose 12/22/[address] [facility] 04/27/2023 08:30:30 COVID-19, mRNA, LNP-S, PF, 100 mcg/0.5mL dose or 50 mcg/0.25mL dose 08/07/2021 completed Mar farley, [facility] 04/27/2023 08:30:30 pneumococcal polysaccharide PPV23 02/05/2004 completed Mar farley, [facility] 04/27/2023 08:30:30 Tdap 12/16/2008 completed Mar January null, [facility] 04/27/2023 08:30:30 Novel [id number], all formulations 09/15/2009 completed Mar January null, [facility] 04/27/2023 08:30:30 Influenza, seasonal, injectable 06/08/2009 completed Mar January null, [facility] 04/27/2023 08:30:30 Influenza, seasonal, injectable 06/11/2012 completed Mar January null, [facility] 04/27/2023 08:30:30 Influenza, seasonal, injectable, preservative free 06/16/2011 completed Mar January null, [facility] 04/27/2023 08:30:30 Td (adult), 2 Lf tetanus toxoid, preservative free, adsorbed 02/05/2004 completed Mar January null, [facility] 04/27/2023 08:30:30 influenza, injectable, quadrivalent, preservative free 10/09/2016 completed Mar January null, [facility] 04/27/2023 08:30:30 influenza, injectable, quadrivalent, preservative free 09/15/2009 completed Mar January null, [facility] 04/27/2023 08:30:30 Influenza vaccine, quadrivalent, adjuvanted 07[facility]19/2022 [facility] 17:53:51 COVID-19, mRNA, LNP-S, bivalent, PF, 50 mcg/0.5 mL or 25mcg/0.25 mL dose 07/19/2022 completed Freda Villalta null, [facility] 07/19/2023 17:53:51 influenza, high-dose, quadrivalent 07/18/2023 completed Grisel Loza null, [facility] 08/20/2023 17:13:51 Past Encounters Encounter ID Performer Location Encounter Start Date Encounter Closed Date Diagnosis/Indication [id number] Arvin Wallace MD [facility] [address] [place] [id number] 08/23/2020 10:07:08 08/26/2020 15:11:42 Prostate specific antigen above reference range [id number] Chet Padron MD [facility] [address] [place] [address] 04/24/2022 14:13:36 04/27/2022 03:54:13 Prostate specific antigen above reference range [id number] Chet Padron MD [facility] [address] [place] [address] 06/14/2022 12:23:31 06/16/2022 09:47:17 Prostate specific antigen above reference range [id number] Chet Padron MD [facility] [address] [place] [address] 06/28/2022 16:25:08 06/30/2022 09:22:29 Prostate specific antigen above reference range [id number] Chet Padron MD [facility] [address] [place] [address] 01/24/2023 14:58:35 01/26/2023 15:59:21 Prostate specific antigen above reference range Nocturia [id number] Chava Musa MD [facility] [address] [place] [address] 03/02/2023 13:33:27 03/08/2023 13:01:50 Prostate specific antigen above reference range Nocturia Antibiotic prophylaxis indicated [id number] Chet Padron MD [facility] [address] [place] [address] 03/15/2023 12:25:39 03/19/2023 14:05:24 Prostate specific antigen above reference range Nocturia Malignant tumor of prostate [id number] Arvin Carrera MD, PHD [facility] [address] [place] [address] 04/27/2023 08:25:13 05/03/2023 14:38:56 Nocturia Malignant tumor of prostate [id number] Melody Moya PA-C [facility] [address] [place] [address] 07/20/2023 10:10:37 07/25/2023 14:55:55 Malignant tumor of prostate [id number] Arvin Carrera MD, PHD [facility] [address] [place] [address] 09/06/2023 11:53:58 09/19/2023 12:31:42 Malignant tumor of prostate Erectile dysfunction Health Concerns Section Related Observation LastModified by Organization Detai ls LastModified Time None Recorded Concern Status LastModified by Organization Details LastModified Time None Recorded Advance Directives Directive None Recorded Payers Encounter Date Sequence Insurance Name Policy Number Policy Hernandez Covered Member ID Hernandez Member ID Guarantor Name 09/06/2023 1 [place] [employer] Marco Antonio Cortez Roland [id number] Marco Antonio Cortez Roland 09/06/2023 2 [employer] (MEDICARE SUPPLEMENT) Marco Antonio Watkins [id number] Marco Antonio Dana Roland 07/20/2023 1 [place] [employer] Marco Antonio Dana Roladn [id number] Marco Antonio Watkins 07/20/2023 2 [employer] (MEDICARE SUPPLEMENT) Marco Antonio Watkins [id number] Marco Antonio Watkins 04/27/2023 1 [place] [employer] Marco Antonio Dana Roland [id number] Marco Antonio Watkins 04/27/2023 2 [employer] (MEDICARE SUPPLEMENT) Marco Antonio Watkins [id number] Marco Antonio Watkins 03/15/2023 1 [place] [employer] Marco Antonio Dana Roland [id number] 5 Marco Antonio Watkins 03/15/2023 2 [employer] (MEDICARE SUPPLEMENT) Marco Antonio Watkins [id number] Marco Antonio Watkins 03/02/2023 1 [place] [employer] Marco Antonio Watkins [id number] 5 Marco Antonio Watkins 03/02/2023 2 [employer] (MEDICARE SUPPLEMENT) Marco Antonio Watkins [id number] Marco Antonio Watkins 01/24/2023 1 [place] [employer] Marco Antonio Watkins [id number] 5 Marco Antonio Watkins 01/24/2023 2 [employer] (MEDICARE SUPPLEMENT) Marco Antonio Watkins [id number] Marco Antonio Watkins 06/28/2022 1 [place] [employer] Marco Antonio Watkins [id number] 5 Marco Antonio Watkins 06/28/2022 2 [employer] (MEDICARE SUPPLEMENT) Marco Antonio Watkins [id number] Marco Antonio Watkins 06/14/2022 1 [place] [employer] Marco Antonio Watkins [id number] 5 Marco Antonio Watkins 06/14/2022 2 [employer] INSURANCE (MEDICARE SUPPLEMENT) Marco Antonio Watkins [id number] Marco Antonio Watkins 04/24/2022 1 [place] [employer] Marco Antonio Watkins [id number] Marco Antonio Watkins 04/24/2022 2 [employer] (MEDICARE SUPPLEMENT) Marco Antonio Watkins [id number] Marco Antonio Watkins 08/23/2020 1 *SELF PAY* Wi seun Watkins Notes Date Note Type Note Provider Name and Address Organization Details Recorded Time 08/23/2020 text/html HPI Notes: New patient referred for elevated PSA of 4.13 on 07/21/2020 at [facility]. His prior PSA was 2.97 in [...] abdominal surgeries. No bothersome urinary symptoms, nocturia x1-2. Arvin Wallace MD [address], [place], [address], [facility] 08/23/2020 10:37:22 06/14/2022 text/html HPI Notes: New patient referred for elevated PSA of 4.13 on 07/21/2020 at [facility]. His prior PSA was 2.97 in [...] abdominal surgeries. No bothersome urinary symptoms, nocturia x1-2. 06/14/2022 Vito: Here for prostate biopsy for elevated PSA and elevated ExoDx. All questions answered. Chet Padron MD [address] [place] [address],[address], [place], [address], [facility] 06/14/2022 23:59:41 06/28/2022 text/html HPI Notes: New patient referred for elevated PSA of 4.13 on 07/21/2020 at [facility]. His prior PSA was 2.97 in [...] abdominal surgeries. No bothersome urinary symptoms, nocturia x1-2. 06/14/2022 Vito: Here for prostate biopsy for elevated PSA and elevated ExoDx. All questions answered. 06/28/2022: Here for pathology review following prostate biopsy. This visit was conducted by telephone due to the COVID-19 crisis. Prior to conducting our telephone visit, the patient was apprised of the risks, benefits and alternatives to telephone visits including but not limited to poor audio quality, interrupted visits due to technological limitations, delays in medical evaluation and treatment due to deficiencies or failures of equipment, failure of security protocols resulting in a breach of privacy of personal medical information and a lack of access to complete medical records resulting in not fully informed decisions. Also, because of the COVID-19 pandemic, it was not possible for the patient to sign the privacy regulations, HIPAA release and assignment of benefits forms. The patient was given the opportunity to ask questions about these policies and gave verbal acknowledgement and approval of these policies as well as to hold this meeting by telephone. Lastly, the patient agreed to allowing their medication history to be pulled from a national pharmacy database to facilitate and coordinate their care. Chet Padron MD [address], [place], [address], [facility] 06/28/2022 17:26:38 01/24/2023 text/html HPI Notes: New patient referred for elevated PSA of 4.13 on 07/21/2020 at [facility]. His prior PSA was 2.97 in [...] abdominal surgeries. No bothersome urinary symptoms, nocturia x1-2. 06/14/2022 Vito: Here for prostate biopsy for elevated PSA and elevated ExoDx. All questions answered. 06/28/2022: Here for pathology review following prostate biopsy. 01/24/2023: Here for follow up elevated PSA s/p biopsy only significant for ELIER. previous negative MRI. PSA today 8.1 ng/mL but believes he had sex within the last couple of days. Chet Padron MD [address] [place] [address],[address], [place], [address], [facility] 01/24/2023 17:42:14 03/02/2023 text/html HPI Notes: 67 yo male with history of elevated PSA and ELIER - follows with Dr. Padron. No Family Hx of prostate cancer. - TRUS bx - (2011) - negative - Dr. Silva - TRUS bx - (06/14/22) - ELIER (Left lat mid) - Dr. Padron 03/02/23 - He presents for UroNav bx of prostate of PI-RADS 4 lesion (anterior mid-line TZ). He was referred by Dr. Padron PSA - 4.76. (08/27/20) - 8.1. (01/24/23) ExoDx (04/24/22) - 64.82 (elevated risk) Prostate MRI (02/02/23) - 33.7 gm - Lesion 1 - (PI-RADS 4) - 2.7 x 1.5 cm - mid-line anterior (TZ) - broad contact with capsule - no enlarged lymph nodes Chava Musa MD [address] [facility],[address], [place], [address], [facility] 03/02/2023 14:56:05 03/15/2023 text/html HPI Notes: New patient referred for elevated PSA of 4.13 on 07/21/2020 at [facility]. His prior PSA was 2.97 in [...] abdominal surgeries. No bothersome urinary symptoms, nocturia x1-2. 06/14/2022 Vito: Here for prostate biopsy for elevated PSA and elevated ExoDx. All questions answered. 06/28/2022: Here for pathology review following prostate biopsy. 01/24/2023: Here for follow up elevated PSA s/p biopsy only significant for ELIER. previous negative MRI. PSA today 8.1 ng/mL but believes he had sex within the last couple of days. 03/15/2023: Here for follow up elevated PSA. Patient underwent repeat UroNav biopsy with biopsy of PIRADS 3 lesion. Pathology reveals multiple cores of [place] 3+3 including the PIRADS 4 lesion in the anterior TZ. Seen today with his who provides some of the history. Chet Padron MD [address], [place], [address], [facility] 03/15/2023 13:46:30 04/27/2023 text/html HPI Notes: 67M w ith recently diagnosed prostate cancer. He has discussed options with Dr Padron and is most interested in surgery. PSA 8.1 (01/24/23) MRI (02/02/23): 34g, 2.7 cm PIRADS 4 midline anterior transitional zone, +/- EPE, -SVI, -LAD Biopsy (03/02/23): 3/ template cores up to Barbara 3+3=6 in 15%, MRI lesion [place] 3+3=6 in 60% Decipher 0.60 (Int risk) LUTS: FOS ok, noct x1 EF: 2 PMH: HTN, HL PSH: right IHR SocHx: Occ: CPA Tob: quit ~ 1999 EtOH: 1/day FamHx: engraver letter- none Arvin Carrera MD, PHD [address] [place] [address],[address] [place] [address], [phone], [facility] 04/27/2023 08:54:15 07/20/2023 text/html HPI Notes: 67M s /p RALP + PLND on 07/10/23 for pT3aN0 [place] 3+3=6 prostate cancer (-SMS, -LVI, 0/4 LN). Overall doing well since surgery. Had some bypassing around the catheter, improved with oxybutynin. He has increased activity to a near normal level. Good appetite and having normal BMs on stool softeners. He is having bilateral thigh numbness outside of thigh only that stops at the knee, not posterior/anterior or medial thigh. Does have h/o spinal stenosis. Denies lower extremity muscle weakness, calf pain, and lower extremity swelling. No prior hip surgery. He denies abdominal pain and denies leg swelling, problems with incisions, or fever/chills. Started abx yesterday. Melody Moya PA-C [address] [place] [address],[address], [address], [facility] 07/20/2023 11:28:37 09/06/2023 text/html HPI Notes: 68M s /p RALP + PLND on 07/10/23 for pT3aN0 Barbara 3+3=6 prostate cancer (-SMS, -LVI, 0/4 LN). Overall doing well since surgery. He has increased activity to a near normal level. He reports minimal pain and denies leg swelling, problems with incisions, or fevers. Voiding with good stream. Using ~1 pads per day. Erections hasn't tried. UF: 10/29 Date of continence: EF: PSA Results 09/06/23: <0.04 Arvin Carrera MD, PHD [address] [place] [address],[address], [place], [address], [facility] 09/06/2023 12:35:00
--- OUTSIDE RECORDS SUMMARY | 2023-10-25 10:07 | XMS_ITS | Encounter Summary ---
Author Name Unknown Organization [facility] Address [address] [place] [id number] Care Team Providers Care Claim Taker Name Role Phone No Ref-Primary, Physician Primary Care Provider Reason for Visit * Auth/Cert (Routine) Specialty Diagnoses / Procedures Referred By Demario crawford Referred To Contact Surgery Diagnoses Prostate cancer (H) Prostate cancer (H) [C61] Procedures OK LAPAROSCOPY, SURGICAL; W/ BILAT TOTAL PELVIC LYMPHADENECTOMY OK LAPAROSCOPY, SURGICAL PROSTATECTOMY, RETROPUBIC RADICAL, W/NERVE SPARING ZZPR LAPS SURG [id number] SMPL STOT ROBOTIC ASSISTANCE ROBOTIC ASSISTED LAPAROSCOPIC PROSTATECTOMY AND PELVIC LYMPH NODE DISSECTION [facility] [address], [address] [place] [address] Referral ID Status Reason Start Date Expiration Date Visits Re quested Visits Authorized [id number] 1 1 Encounter Details Date Type Department Care Team (Latest Contact Info) Description 07/10/2023 5:27 AM CDT - 07/11/2023 11:55 AM CDT Hospital Encounter [facility] General Surgery [address] [place] [address] Arvin Carrera MD [facility] [address] [place] [address] Prostate cancer (H) (Primary Dx) Discharge Disposition: Home or Self Care Social History Tobacco Use Types Packs/Day Years [...] Mulligan PA-C - 07/11/2023 8:00 AM CDT [facility] Urology Progress Note Assessment & Plan Marco Antonio Watkins is a 67 year old male who was admitted on 07/10/2023. POD 1 s/p RALP w Dr. Carrera Plan: -ADAT -Ambulate -RN to teach [facility], home w leg bag Ok for discharge home with [facility], follow-up scheduled for 07/20 for catheter removal Emperatriz Mulligan PA-C [facility] [email or web address] Text Page (7:30am to 4:30pm) Interval History [...] 106 03/31/2014 Lab Results Component Value Date MARGARET 9.7 03/31/2014 Lab Results Component Value Date [...] Moya PA-C [facility] After 4pm and on weekends, please call [phone] * Shira Hampton M - 07/09/2023 2:10 PM CDT ADMINISTRATIVE AND PROGRAM SPECIALIST medications updated by Medication Scribe prior to [...] Medication Sig Last Dose Taking? Auth Provider Rough Patcher End Date aspirin 81 MG EC tablet [...] in this encounter H&P Notes * Royce Arnold DO - 07/10/2023 6:52 AM CDT I have [...] bilateral pelvic lymphadenectomy Surgeon: Arvin Carrera MD Aerial Installer: Melody Moya PA-C Date of Procedure: 07/10/23 OPERATIVE INDICATION: Marco Antonio Watkins is a 67 year old male with prostate cancer. After understanding various management options he elected to undergo today's procedure. Clinical stage: [id number] PSA: 8.1 FINESSE: smooth MRI findings: 2.7 [...] Time out was called . An 18 [place] catheter was placed and the bladder was [...] on a double armed needle. An 18 [place] catheter was placed and the bladder irrigated well. A good watertight, tension free anastasmosis was obtained. Further inspection at this time showed no further bleeding. The string of the Endocatch was then brought out through the umbilical port site. The robot was then undocked. The laparoscopic ports were removed under vision and the 12 mm assistant librarian port was closed with an 0 Vicryl using a Restore Flow Allograftsen device I slightly extended the supraumbilical incision [...] TO GO FOR SURGERY . MESSAGE TO ROUTER SETTER TO FOLLOW UP AND TRY TO GET [...] Grimes RN - 07/11/2023 6:33 AM CDT [id number] POD#1 Robotic Radical Prostatectomy with bilateral pelvic [...] 13.3 - 17.7 g/dL 07/11/2023 8:59 AM CDT LABORATORY Blood STRUCTURE OF RIGHT UPPER LIMB / Unknown Venipuncture / Unknown 07/11/2023 8:37 AM CDT 07/11/2023 8:53 AM CDT Melody Moya PA-C LAB - BLOOD O RDERABLES LABORATORY [facility] [address] 1[address] floor, [address] [place] [address], [facility] [phone] * (ABNORMAL) Basic metabolic panel (07/11/2023 8:37 AM CDT) [facility] Sodium 142 135 - 145 mmol/L 07/11/2023 9:23 AM [facility] Comment:Reference intervals for this test were updated on 06/19/2023 to more accurately reflect our healthy population. There may be differences in the flagging of prior results with similar values performed with this method. Interpretation of those prior results can be made in the context of the updated reference intervals. Potassium 3.7 3.4 - 5.3 mmol/L 07/11/2023 9:23 AM [facility] Chloride 109(H) 98 - 107 mmol/L 07/11/2023 9:23 AM T LABORATORY Carbon Dioxide (CO2) 22 22 - 29 mmol/L 07/11/2023 9:23 AM T LABORATORY Anion Gap 11 7 - 15 mmol/L 07/11/2023 9:23 AM [facility] Urea Nitrogen 26.2(H) 8.0 - 23.0 mg/dL 07/11/2023 9:23 AM T LABORATORY Creatinine 1.17 0.67 - 1.17 mg/dL 07/11/2023 9:23 AM [facility] GFR Estimate 69 >60 mL/min/1. 73m2 07/11/2023 9:23 AM T LABORATORY Calcium 8.2(L) 8.8 - 10.2 mg/dL 07/11/2023 9:23 AM [facility] Glucose 123(H) 70 - 99 mg/dL 07/11/2023 9:23 AM [facility] Blood STRUCTURE OF RIGHT UPPER LIMB / Unknown Venipuncture / Unknown 07/11/2023 8:37 AM CDT 07/11/2023 8:53 AM CDT Melody Moya PA-C LAB - BLOOD O RDERABLES LABORATORY [facility] [address] 1[address] floor, [address] [place] [address], [facility] [phone] * (ABNORMAL) Glucose by meter (07/11/2023 6:14 AM CDT) GLUCOSE BY METER POCT 116(H) 70 - 99 mg/dL 07/11/2023 6:21 AM CDT LABORATORY POC Blood, Capillary BLOOD SPECIMEN / Unknown 07/11/2023 6:14 AM CDT 07/11/2023 6:21 AM CDT Arvin Carrera MD LAB - BEAK ER POCT LABORATORY POC [facility] [address] 1[address] floor, [address] [place] [address], [facility] [phone] * (ABNORMAL) Surgical Pathology Exam (07/10/2023 9:32 AM CDT) Case Report Surgical Pathology Report ? Case: [id number] ? Authorizing Provider: ??Arvin Carrera ? Collected: ? 07/10/2023 09:32 AM ? MD Joni ? Ordering Location: ? [facility] ?Received: ?07/10/2023 01:00 PM ? [facility] OR ? Pathologist: ? Yazmin Mchugh, MD [...] vesicles, radical prostatectomy: -Prostatic adenocarcinoma, acinar type, Morris's grade 3+3 = 6, grade group is [...] Histologic Grade: ? Grade: ?Grade group 1 (Morris Score 3 + 3 = 6) ?? [...] display a homogenous pale-truong, lobulated cut surface. Mechanic And Welder sections of the specimen are submitted in [...] No discrete tumor nodules are noted grossly. Mechanic And Welder sections including the entire posterior aspect are [...] component of this testing was completed at [facility] 07/11/2023 3:19 PM CDT LABORATORY [...] PM CDT Arvin Carrera MD LAB - GARY APARICIO LABORATORY [facility] [address] [facility] (1st floor, no room number) [place] [address] [phone] LABORATORY [facility] [address] 1[address] floor, [address] [place] [address], [place] [phone] * Creatinine (07/10/2023 6:54 AM CDT) Creatinine 1.06 0.67 - 1.17 mg/dL 07/10/2023 1:43 PM CDT LABORATORY GFR Estimate 77 >60 mL/min/1.73 m2 07/10/2023 1:43 PM CDT LABORATORY Blood STRUCTURE OF RIGHT HAND / Unknown Venipuncture / Unknown 07/10/2023 6:54 AM CDT 07/10/2023 7:05 AM CDT Melody Moya PA-C LAB - BLOOD O RDERABLES [facility] [address] 1[address] floor, [address] [place] [address], [facility] [phone] * Extra Blood Bank Purple Top Tube (07/10/2023 6:54 AM CDT) [facility] Hold Specimen JIC 07/10/2023 8:16 AM CDT LABORATORY Blood STRUCTURE OF RIGHT HAND / Unknown Venipuncture / Unknown 07/10/2023 6:54 AM CDT 07/10/2023 7:15 AM CDT Arvin Carrera MD LAB - BLOO D ORDERABLES [facility] [address] 1[address] floor, [address] [place] [address], [place] [phone] * Potassium (07/10/2023 6:54 AM CDT) Potassium 4.2 3.4 - 5.3 mmol/L 07/10/2023 7:25 AM CDT LABORATORY Blood STRUCTURE OF RIGHT HAND / Unknown Venipuncture / Unknown 07/10/2023 6:54 AM CDT 07/10/2023 7:05 AM CDT Royce Arnold DO LAB - BLOOD ORDER MICHAEL LABORATORY [facility] [address] floor, [address] [place] [address], [facility] [phone] * Adult Type and Screen (07/10/2023 6:08 AM CDT) ABO/RH(D) A POS 07/10/2023 5:47 AM CDT BLOOD BANK Antibody Screen Negative Negative 07/10/2023 5:47 AM CDT BLOOD BANK SPECIMEN EXPIRATION DATE [id number] 07/10/2023 5:47 AM CDT BLOOD BANK Blood STRUCTURE OF LEFT WRIST REGION / Unknown Venipuncture / Unknown 07/10/2023 6:08 AM CDT 07/10/2023 6:13 AM CDT Manju Arreola PA-C LAB - BLOOD BAN K TEST ORDER Performing Organization Address City/[facility]/ZIP Co de Phone Number BLOOD BANK [address] [place] [address], [facility] * (ABNORMAL) Glucose (07/10/2023 6:08 AM CDT) Glucose 120(H) 70 - 99 mg/dL 07/10/2023 6:38 AM CDT LABORATORY Patient Fasting > 8hrs? Yes 07/10/2023 6:38 AM CDT LABORATORY Blood STRUCTURE OF LEFT WRIST REGION / Unknown Venipuncture / Unknown 07/10/2023 6:08 AM CDT 07/10/2023 6:13 AM CDT Royce Arnold DO LAB - BLOOD ORDER MICHAEL LABORATORY [facility] [address], [address] [place] [address], [facility] [phone] * LAB RESULT - HIM SCAN (06/27/2023 [...] $Given 07/10/2023 10:27 PM CDT 975 mg ketorolac (TORADOL) injection 15 mg 15 mg, [...] analgesic side effects. Hold while on IV MANAGER PRODUCE or with regular IV opioid dosing. oxyCODONE (ROXICODONE) tablet 5 mg 5 mg, Oral, EVERY 4 HOURS PRN, moderate pain, Starting on Sun07/10/23 at 1447, Hold oral PRN dose for analgesic side effects. Notify provider to assess for uncontrolled pain or analgesic side effects. Hold while on IV MANAGER PRODUCE or with regular IV opioid dosing. $Given [...] Sun07/10/23 at 1500, Until Sun07/11/23 at 1356 $New Bag 07/11/2023 3:05 AM [...] 4 grams/day. 1635 ($Given - Provider: Parmjit López RN)2227 ($Given - Provider: Yoli Grimes, RAN) 0455 ($Given - Provider: Yoli Grimes, RN)1058 ($Given - Provider: Anju Hoffman, RAN) ceFAZolin [...] Grimes RN) 0455 ($Given - Provider: Yoli Grimes RN)1102 ($Given - Provider: Anju Hoffman, RAN) metoprolol succinate ER (TOPROL XL) 24 hr tablet 25 mg 25 mg, Oral, 2 TIMES DAILY, First dose on Sun07/11/23 at 0900, DO NOT CRUSH. Tablet may be split in half along score line. 1058 ($Given - Provider: Anju Hoffman RN) sodium chloride (PF) 0.9% PF flush 3 mL 3 mL, Intracatheter, EVERY 8 HOURS, First dose on Sun07/10/23 at 1500, to lock peripheral IV dormant line 1637 ($Given - Provider: Parmjit López, RAN)2227 ($Given - Provider: Yoli Grimes, RAN) 0600 (Not Given - Provider: Yoli Grimes [...] ($New Bag - Provider: Mary Craig APRN RESIDENTIAL FRAMING CARPENTER)1208 ($New Bag - Provider: Mary Craig APRN CRNA) sodium chloride 0.9 % infusion at 100 mL/hr, Intravenous, CONTINUOUS, Starting on Sun07/10/23 at 1500, Until Sun07/11/23 at 1356 1637 ($New Bag - Provider: Parmjit López RN) 0305 ($New Bag - Provider: Yoli Grimes RN) PRN Medication Order 07/09/2023 07/10/2023 07/11/2023 BUPivacaine [...] at 1709 2011 ($Given - Provider: Yoli Grimes RN) naloxone (NARCAN) injection 0.2 mg(Linked Group 1) [...] reversal, Starting on Sun07/10/23 at 161, Administer intravenous route when available and notify [...] then swallow with saliva. Liquid not required. 172 (See Alternative - Provider: Parmjit López RN) 1124 ($Given - Provider: Anju Hoffman RN) ondansetron (ZOFRAN) injection 4 mg(Linked Group 2) 4 mg, Intravenous, EVERY 6 HOURS PRN, nausea, vomiting, Administer over 2-5 Minutes, Starting on Sun07/10/23 at 1447, This is Step 1 of nausea and vomiting management. If nausea not resolved in 15 minutes, go to Step 2 prochlorperazine (COMPAZINE). Irritant. 172 ($Given - Provider: Parmjit López RN) 1124 (See Alternative - Provider: Anju Hoffman, RAN) oxyCODONE (ROXICODONE) tablet 10 mg(Linked Group 3) 10 mg, Oral, EVERY 4 HOURS PRN, severe pain, Starting on Sun07/10/23 at 1447, Hold oral PRN dose for analgesic side effects. Notify provider to assess for uncontrolled pain or analgesic side effects. Hold while on IV MANAGER PRODUCE or with regular IV opioid dosing. 1635 (See Alternative - Provider: Parmjit López RN) oxyCODONE (ROXICODONE) tablet 5 mg(Linked Group 3) 5 mg, Oral, EVERY 4 HOURS PRN, moderate pain, Starting on Sun07/10/23 at 1447, Hold oral PRN dose for analgesic side effects. Notify provider to assess for uncontrolled pain or analgesic side effects. Hold while on IV MANAGER PRODUCE or with regular IV opioid dosing. 1635 ($Given - Provider: Parmjit López RN) prochlorperazine (COMPAZINE) injection 5 mg(Linked Group 4) 5 mg, Intravenous, EVERY 6 HOURS PRN, nausea, vomiting, Administer over 1-2 Minutes, Starting on Sun07/10/23 at 1447, This is Step 2 of nausea and vomiting management. If nausea not resolved in 15-30 minutes, Notify provider. 192 ($Given - Provider: Parmjit López RN) prochlorperazine (COMPAZINE) tablet 5 mg(Linked Group 4) 5 mg, Oral, EVERY 6 HOURS PRN, nausea, vomiting, Starting on Sun07/10/23 at 1447, This is Step 2 of nausea and vomiting management. If nausea not resolved in 15-30 minutes, Notify provider. 192 (See Alternative - Provider: Parmjit López RN) [...] analgesic side effects. Hold while on IV MANAGER PRODUCE or with regular IV opioid dosing. Or oxyCODONE (ROXICODONE) tablet 10 mgJump to med 10 mg, Oral, EVERY 4 HOURS PRN, severe pain, Starting on Sun07/10/23 at 1447, Hold oral PRN dose for analgesic side effects. Notify provider to assess for uncontrolled pain or analgesic side effects. Hold while on IV MANAGER PRODUCE or with regular IV opioid dosing. Group [...] provider. documented in this encounter Care Teams Claim Taker Relationship Specialty Start Date End Date No Ref-Primary, Physician PCP - General 07/10/23 documented as of this encounter
--- OUTSIDE RECORDS SUMMARY | 2023-10-25 10:08 | XMS_ITS | Continuity of Care Document ---
Author Name Unknown Address [address] [place] [address] Phone [phone] Organization [facility], [facility] Address [address] [place] [address] Care Team Providers Care Lamp Shade Assembler Name Role Phone JUAN JOSE MOHAMUD Primary Care Provider Assessment Encounter Date Assessment Date Assessment LastModified by Organization Details LastModified Time 09/06/2023 09/06/2023 68M s/p RALP + PLND on 07/10/23 for [id number] Barbara 3+3=6 prostate cancer (-SMS, -LVI, 0/4 LN). 1) Prostate cancer. NASIM. - f/u 4 months with PSA 2) ED - sildenafil 20; discussed side effects and way to take - rx provided 3) EDMOND, mild - cont Kegels ryan Not available 09/06/2023 12:34:51 Plan of Treatment Reminders Order Date Submit Date Provider Last Modified By Organization Details Last Modified Time Details Appointments PSA 10 2023 03:00P M [facility] Not available Not available Not available ESTABL ISHED 2023 03:20P M Arvin fernandes MD, PHD Not available Not available Not available Lab PSA, serum or plasma 2022 023 ryan [facility], [address], [place], [address], 09/06/2023 12:33:49 Referral None record ed. Procedures None record ed. Surgeries None record ed. Imaging None record ed. Medication Orders silden afil (pulmo nary hypert ension ) 20 mg tablet 2022 023 [id number], [address], [place], [address], 09/06/2023 12:33:50 Patient TargetsNo targets recorded. Patient InstructionsNo instructions recorded. Reason for Referral None Reported. Results Created Date Observation Date Name Description Value Unit Range Abnormal Flag LastModifiedBy Organization Detail LastModifiedTime 09/06/20 23 09/06/2023 PSA, serum or plasm a PSA <0.04 ng/ml 0-4.0 Not Available [facility] [address], [place], [address], 09/03/2023 14:26:12 Result Notes None recorded. 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 3 08:52:13 Erectile dysfunction Active 023 Arvin payne MD, PHD [address] [place] [address], [phone], [facility] 3 12:31:29 Problem Notes None recorded. Procedures Surgical History Date Name Laterality Status Provider Name and Address Organization Details Recorded Time 09/06/20 23 LEGAL ACTIVITY ADJUDICATOR/blood draw completed Antonieta farley [facility] 09/03/2023 14:25:52 03/02/20 23 Prostate Biopsy Procedure completed Chava Musa MD [address] [place] [address],[address], [address], [facility] 03/02/2023 14:55:39 03/02/20 23 URONAV completed Chava Musa MD [address] [place] [address],[address], [address], [facility] 03/02/2023 10:01:17 01/25/20 23 Blood Draw/LEGAL ACTIVITY ADJUDICATOR/PSA RESULTS completed Chet Padron MD [address] [place] [address],[address], [address], [facility] 01/24/2023 17:40:18 06/14/20 22 Prostate Biopsy Procedure completed Chet Padron MD [address] [place] [address],[facility] [address] [address], [facility] 06/14/2022 13:45:36 06/14/20 22 Rocephin/Ceftri axone completed Ingris farley, [facility] 06/14/2022 16:32:58 08/13/20 12 Biopsy of prostate completed Not Available [facility] 03/04/2020 20:49:39 08/13/20 12 Njx aa&/strd other pn/branch completed Not Available [facility] 03/04/2020 20:49:39 07/26/20 12 urine capacity measure completed Not Available [facility] 03/04/2020 20:49:39 Hernia Repair completed Mary farley, [facility] 08/23/2020 10:12:19 Colonoscopy completed Chet Padron MD [address] [place] [address],[address], [address], [facility] 01/24/2023 15:42:55 Imaging Results None recorded. Procedure Notes None recorded. Medical Equipment None Reported. Allergies Allergen ID Allergen Name Allergen Category Reaction Reaction Severity Criticality Documentation Date Start Date Code Code System Note Provider Name and Address Organization Details Recorded Time [id number] bee pollen environme nt,medica tion Not available Not available Not available 03/03/2020 26192 7 RxNorm Not Available [facility] 0 23:53:45 Medications Name Sig Start Date [...] completed Not Available Not Available Not Available [facility] COVID-19 Antigen Rapid Home Test kit USE DIRECTED 01/24 completed Not Available Not Available Not Available Vitals Date Recorded Body height Body mass index (BMI) Body weight Provider Name and Address Organization Details Last Updated DateTime 09/06/2023 172.72 cm 35.7 kg/m2 662435.21 g CADY Dumont [facility] 09/06/2023 12:00:10 Social History Question Answer Notes LastModified by Organizat ion Details LastModified Time Tobacco Smoking Status Former Smoker Not Available [facility] 03/04/2020 02:17:19 What Is Your Level Of Alcohol Consumption? Occasional [email or web address] Information not available 04/27/2023 How Many Times Per Week Do You Consume Alcohol? Less Than 1 Time Per Week [email or web address] Information not available 04/27/2023 What Is Your Level Of Caffeine Consumption? Moderate [email or web address] Information not available 04/27/2023 Do You Or Have You Ever Used E-cigarettes Or Vape? Never Used Electronic Cigarettes [email or web address] Information not available 08/23/2020 When Did You Quit Smoking? 16+yearssincel astcigarette [email or web address] Information not available 04/27/2023 Race White Information n ot available 03/04/2020 Marital Status Informati on not available 03/04/2020 What Was The Date Of Your Most Recent Tobacco Screening? 09/06/2023 [email or web address] Information not available 09/06/2023 Do You Use Any Illicit Or Recreational Drugs? No [email or web address] Information not available 04/27/2023 Has Tobacco Cessation Counseling Been Provided? No [email or web address] Information not available 04/27/2023 Do You Or Have You Ever Used Any Other Forms Of Tobacco Or Nicotine? No [email or web address] Information not available 04/27/2023 Sex: Male Functional Status None recorded. Mental Status None recorded. Family History Relationship Description Onset Age of this Age Resolved Age Notes Mother Leukemia Notes:Strokes:Father Asthm a:Daughter Depression:Father Diabetes:Grandmother Hypertension:Father Leukemia:Mother Hyperlipidemia:Father Thyroid problems:Sister Heart disease:Father Heart disease:Grandfather Cancer, colon:Grandmother Strokes:Mother Cancer, lung:Grandfather Medical History Condition Response Sexually Transmitted Infection N Diabetes N Bleeding Disorder N High Blood Pressure Y Kidney Stones Y High Cholesterol Y GERD/Acid Reflux Y Cancer Y Lung Disease N Depression N Immunizations Vaccine Type Date Status Provider Name and Address Organization Details Recorded Time COVID-19, mRNA, LNP-S, PF, 50 mcg/0.5 mL 08/12/2023 CADY Weldon [facility] 09/06/2023 12:00:18 influenza, recombinant, quadrivalent,injecta ble, preservative free 07/23/2020 completed Mar May null, [facility] 04/27/2023 08:30:29 Influenza vaccine, quadrivalent, adjuvanted 08/24/2021 completed Mar May null, [facility] 04/27/2023 08:30:30 COVID-19, mRNA, LNP-S, PF, 100 mcg/0.5mL dose or 50 mcg/0.25mL dose 11/24/2020 completed Mar May null, [facility] 04/27/2023 08:30:30 COVID-19, mRNA, LNP-S, PF, 100 mcg/0.5mL dose or 50 mcg/0.25mL dose 12/22/2020 completed Mar May null, [facility] 04/27/2023 08:30:30 COVID-19, mRNA, LNP-S, PF, 100 mcg/0.5mL dose or 50 mcg/0.25mL dose 08/07/2021 completed Mar May null, [facility] 04/27/2023 08:30:30 pneumococcal polysaccharide PPV23 02/05/2004 completed Mar May null, [facility] 04/27/2023 08:30:30 Tdap 12/16/2008 completed Mar May null, [facility] 04/27/2023 08:30:30 Novel Lzkbqozvj-[id number], all formulations 09/15/2009 completed Mar January null, [facility] 04/27/2023 08:30:30 Influenza, seasonal, injectable 06/08/2009 completed Mar May null, [facility] 04/27/2023 08:30:30 Influenza, seasonal, injectable 06/11/2012 completed Mar May null, [facility] 04/27/2023 08:30:30 Influenza, seasonal, injectable, preservative free 06/16/2011 completed Mar May null, [facility] 04/27/2023 08:30:30 Td (adult), 2 Lf tetanus toxoid, preservative free, adsorbed 02/05/2004 completed Mar May null, [facility] 04/27/2023 08:30:30 influenza, injectable, quadrivalent, preservative free 10/09/2016 completed Mar January martine [facility] 04/27/2023 08:30:30 influenza, injectable, quadrivalent, preservative free 09/15/2009 [facility] 08:30:30 Influenza vaccine, quadrivalent, adjuvanted 07/19/2022 [facility] 07/19/2023 17:53:51 COVID-19, mRNA, LNP-S, bivalent, PF, 50 mcg/0.5 mL or 25mcg/0.25 mL dose 07/19/2022 [facility]/19/2023 17:53:51 influenza, high-dose, quadrivalent 07/18/2023 completed Grisel Loza [facility] 08/20/2023 17:13:51 Past Encounters Encounter ID Performer Location Encounter Start Date Encounter Closed Date Diagnosis/Indication [id number] Arvin Carrera MD, PHD [facility] [address] [place] [address] 09/06/2023 11:53:58 09/19/2023 12:31:42 Malignant tumor of prostate Erectile dysfunction Health Concerns Section Related Observation LastModified by Organization Detai ls LastModified Time None Recorded Concern Status LastModified by Organization Details LastModified Time None Recorded Payers Encounter Date Sequence Insurance Name Policy Number Policy Hernandez Covered Member ID Hernandez Member ID Guarantor Name 09/06/2023 1 [place] [employer] Marco Antonio Watkins [id number] Marco Antonio Watkins 09/06/2023 2 [employer] (MEDICARE SUPPLEMENT) Marco Antonio Watkins [id number] Marco Antonio Watkins Notes Date Note Type Note Provider Name and Address Organization Details Recorded Time 09/06/2023 text/html HPI Notes: 68M s/p RALP + PLND on 07/10/23 [...] Results 09/06/23: <0.04 Arvin Carrera MD, PHD [address] [facility],[address], [address], [facility] 09/06/2023 12:35:00
== END 2023-10-25 10:05 | disposition home or self-care (01) ==
PROVIDERS: PCP Family Medicine; Visit Provider Family Medicine
DX: E55.9 Vitamin D deficiency, unspecified (principal); I10 Essential (primary) hypertension; E78.2 Mixed hyperlipidemia
CPT/HCPCS: 80053; 80061; 82043; 82306; 82570

== ENCOUNTER 2023-10-26 08:05 | Outpatient (CLI) | payer MEDICARE, OTHER, SELFPAY ==
--- OUTSIDE RECORDS SUMMARY | 2023-10-29 07:13 | XMS_ITS | Encounter Summary ---
Author Name Unknown Organization [place] Address [address] [place] [address] Care Team Providers Care Repairer Handtools Name Role Phone No Ref-Primary, Physician Primary Care Provider Reason for Visit * Auth/Cert (Routine) Specialty Diagnoses / Procedures Referred By Demario crawford Referred To Contact Surgery Diagnoses Prostate cancer (H) Prostate cancer (H) [C61] Procedures [place] LAPAROSCOPY, SURGICAL; W/ BILAT TOTAL PELVIC LYMPHADENECTOMY [place] LAPAROSCOPY, SURGICAL PROSTATECTOMY, RETROPUBIC RADICAL, W/NERVE SPARING ZZPR LAPS SURG SWFM2VGY SMPL STOT ROBOTIC ASSISTANCE ROBOTIC ASSISTED LAPAROSCOPIC PROSTATECTOMY AND PELVIC LYMPH NODE DISSECTION Periop Services [address], [address] [place] [address] Referral ID Status Reason Start Date Expiration Date Visits Re quested Visits Authorized [id number] 1 1 Encounter Details Date Type Department Care Team (Late st Contact Info) Description 07/10/2023 7:42 AM CDT Anesthesia Event [facility] [address], [address] [place] [address] Royce Arnold DO [facility] [address] [place] [id number] Anesthesia Record Procedure Summary Procedure Name Responsible Anesthesiologist Anesthesia Start Time Anesthesia Stop Time ROBOTIC ASSISTED LAPAROSCOPIC PROSTATECTOMY AND PELVIC LYMPH NODE DISSECTION (Pelvis) Royce Arnold DO 07/10/23 0742 07/10/23 1256 Events Date Time Event Comment 07/10/2023 0717 TRANSMISSION DESIGN ENGINEER Ready for Procedure 0742 An Start 0742 An Start Data 0742 AN REASSESS I attest that I have identified and re-evaluated the patient immediately before the induction of anesthesia and I am satisfied that the anesthetic plan is suitable for the patient's condition and procedure. The first vital signs recorded are pre- induction. Mary Craig APRN TRANSMISSION DESIGN ENGINEER 0746 An Induction 0749 An Intubation 0754 Anesthesia Ready for Procedu re 0823 AN INCISION 0958 MD Present 1248 AN Extubation All extubation criteria met prior to removal. 1249 an stop data 1256 An Stop Electronically signed by Mary Craig APRN TRANSMISSION DESIGN ENGINEER on July 10, 2023 12:56 PM Meds [...] Tube Size: 8 mm; VL Blade Size: [place] scope 4; Grade View: 1; Adjucts: Stylet; Placement Person: TRANSMISSION DESIGN ENGINEER; Attempts: 1; Depth: 23 cm 07/10/23 0749 [...] APRN CRNA Urethral Catheter 07/10/23; 0823; No; /GI/MEDICAL ACCOUNTING CLERK Pelvic Procedure; 18 fr 07/10/23 0823 by [...] Anesthesia Procedure Notes - Mary Craig APRN TRANSMISSION DESIGN ENGINEER - 07/10/2023 8:11 AM CDTAssociated Order(s): Airway Airway Patient location during procedure: OR Procedure Start/Stop Times: 07/10/2023 7:49 AM Staff - Anesthesiologist: Royce Arnold DO TRANSMISSION DESIGN ENGINEER: Mary Craig APRN TRANSMISSION DESIGN ENGINEER Performed By: TRANSMISSION DESIGN ENGINEER Consent for Airway Urgency: elective Indications and Patient Condition Indications for airway management: kawn-procedural Induction type:intravenous Mask difficulty assessment: 1 - [...] and realistic alternatives discussed. Questions answered and patient/architectural representative(s) expressed understanding. - Discussed: - Discussed [...] Care Transfer Note - Mary Craig APRN TRANSMISSION DESIGN ENGINEER - 07/10/2023 12:56 PM CDT Patient: Marco [...] - ? Anesthesiologist: ??Royce Arnold, DO ? TRANSMISSION DESIGN ENGINEER: Mary Craig APRN CRNA ? Performed By: TRANSMISSION DESIGN ENGINEER Consent for Airway ? Urgency: elective Indications [...] Time: 07/10/2023 7:49 AM Royce Arnold DO [place] ANESTHESIA documented in this encounter Visit Diagnoses [...] mg documented in this encounter Care Teams Repairer Handtools Relationship Specialty Start Date End Date No Ref-Primary, Physician PCP - General 07/10/23 documented as of this encounter
--- OUTSIDE RECORDS SUMMARY | 2023-10-29 07:13 | XMS_ITS | Referral Summary ---
Author Name Unknown Organization [place] Address [address] [place] [address] Care Team Providers Care Cardiology Technician Name Role Phone No Ref-Primary, Physician [...] Advance Directives For more information, please contact: [phone] Latest Code Status on File Code Status Date Activated Date Inactivated Comments Full Code 07/10/2023 2:47 PM 07/11/2023 1:56 PM All basic and advanced life-sustaining interventions are performed as appropriate Question Answer Comments Code status determined by: Unable to discuss and no AD/POLST on file; continue PREVIOUSLY ORDERED code status Care Teams Cardiology Technician Relationship Specialty Start Date End Date No Ref-Primary, Physician PCP - General 07/10/23
--- OUTSIDE RECORDS SUMMARY | 2023-10-29 07:13 | XMS_ITS | Clinical Summary ---
Author Name Unknown Organization [place] Address [address] [place] [address] Care Team Providers Care Power Transformer Repairer Name Role Phone No Ref-Primary, Physician Primary [...] Additional history exists INFLUENZA VACCINE (#1) 2023 , 07/19/2022, 08/24/2021, Additional history exists PHQ-2 (once per calendar year) 2023 GLUCOSE 07/11/2026 07/11/2023, 06/24, 07/10/2023, Additional history exists HPV IMMUNIZATION Aged Out No longer e [...] Advance Directives For more information, please contact: [phone] Latest Code Status on File Code Status Date Activated Date Inactivated Comments Full Code 07/10/2023 2:47 PM 07/11/2023 1:56 PM All basic and advanced life-sustaining interventions are performed as appropriate Question Answer Comments Code status determined by: Unable to discuss and no AD/POLST on file; continue PREVIOUSLY ORDERED code status Care Teams Power Transformer Repairer Relationship Specialty Start Date End Date No Ref-Primary, Physician PCP - General 07/10/23
--- OUTSIDE RECORDS SUMMARY | 2023-10-29 07:13 | XMS_ITS | Clinical Summary ---
Author Name Unknown Organization [facility] Address [place], [place] [address] Care Team Providers Care Chinese Teacher Name Role Phone Ross Parmjit Edwards Unavailable [phone] Luis Farmer MD Primary Care Provider + [...] rhinitis, unspecified allergic rhinitis trigger Inhale 1 [place] into both nostrils once daily. At bedtime [...] 02/02/2009 Overview: The 10-year ASCVD risk score ([place] BIB Jr, et al., 2013) is: 10.8% Values used to calculate the score: Age: 61 years Sex: Male Is Non- : No Diabetic: No Tobacco smoker: No Systolic Blood Pressure: 118 mmHg Is BP treated: Yes HDL Cholesterol: 43 mg/dL Total Cholesterol: 226 mg/dL Adjustment disorder with depressed mood 12/17/19 09 Need for prophylactic vaccin ation with combined enfywqechk-kpdfslg-mxsokkotk (DTP) vaccine 12/16/2008 Mole (skin) 12/16/2008 Resolved [...] ??C (97.6 ??F) 11/23/2019 1 0:23 AM AUDIOPROSTHOLOGIST Respiratory Rate 18 04/05/2022 8:54 AM CDT [...] 6:27 AM 01/18/2015 1:59 PM Care Teams Chinese Teacher Relationship Specialty Start Date End Date Luis Farmer MD [address] [place] [address] PCP - General Family Practice 08/10/21 Parmjit Hawkins [address] [address] Dermatology Dermatology 11/04/14
--- OUTSIDE RECORDS SUMMARY | 2023-10-29 07:13 | XMS_ITS | Encounter Summary ---
Author Name Unknown Organization [facility] Address [address] [place] [address] Care Team Providers Care Contract Preparer Name Role Phone No Ref-Primary, Physician Primary Care Provider Reason for Visit * Auth/Cert (Routine) Specialty Diagnoses / Procedures Referred By Demario crawford Referred To Contact Surgery Diagnoses Prostate cancer (H) Prostate cancer (H) [C61] Procedures WA LAPAROSCOPY, SURGICAL; W/ BILAT TOTAL PELVIC LYMPHADENECTOMY WA LAPAROSCOPY, SURGICAL PROSTATECTOMY, RETROPUBIC RADICAL, W/NERVE SPARING ZZPR LAPS SURG [id number] SMPL STOT ROBOTIC ASSISTANCE ROBOTIC ASSISTED LAPAROSCOPIC PROSTATECTOMY AND PELVIC LYMPH NODE DISSECTION Periop Services [address] [place] [address] Referral ID Status Reason Start Date Expiration Date Visits Re quested Visits Authorized [id number] 1 1 Encounter Details Date Type Department Care Team (Late st Contact Info) Description 07/10/2023 7:30 AM CDT - 07/10/2023 12:25 PM CDT Surgery [facility] PeriOP Services [address] [place] [address] Arvin Carrera MD [facility] [address] [place] [id number] ROBOTIC ASSISTED LAPAROSCOPIC PROSTATECTOMY AND PELVIC LYMPH NODE DISSECTION Surgery Details Date/Time Status Location OR Service Patient Class Case Class Case Type Trauma Case? 07/10/23 7:30 AM Posted OR OR M 42 [facility] Urology Same Day Surgery Elective [...] 07/20 for catheter removal Emperatriz Mulligan PA-C [facility] [email or web address] Text Page (7:30am to 4:30pm) Interval History [...] Moya PA-C [facility] After 4pm and on weekends, please call [phone] * Shira Hampton - 07/09/2023 2:10 PM CDT [facility] medications updated by Medication Scribe prior to [...] Medication Sig Last Dose Taking? Auth Provider Set Key Driver End Date aspirin 81 MG EC tablet [...] bilateral pelvic lymphadenectomy Surgeon: Arvin Carrera MD Cloud Physicist: Melody Moya PA-C Date of Procedure: 07/10/23 OPERATIVE INDICATION: Marco Antonio Watkins is a 67 year old male with prostate cancer. After understanding various management options he elected to undergo today's procedure. Clinical stage: [id number] PSA: 8.1 FINESSE: smooth MRI findings: 2.7 [...] Time out was called . An 18 [place] catheter was placed and the bladder was [...] on a double armed needle. An 18 [place] catheter was placed and the bladder irrigated well. A good watertight, tension free anastasmosis was obtained. Further inspection at this time showed no further bleeding. The string of the Endocatch was then brought out through the umbilical port site. The robot was then undocked. The laparoscopic ports were removed under vision and the 12 mm information assistant port was closed with an 0 Vicryl using a Cuciniale device I slightly extended the supraumbilical incision [...] TO GO FOR SURGERY . MESSAGE TO [facility] TO FOLLOW UP AND TRY TO GET [...] Grimes RN - 07/11/2023 6:33 AM CDT [id number] POD#1 Robotic Radical Prostatectomy with bilateral pelvic [...] PA-C LAB - BLOOD O RDERABLES LABORATORY [facility] Acute Care Lab [address] 1st floor, [address] [place] [address], [facility] [phone] * (ABNORMAL) Basic metabolic panel (07/11/2023 8:37 AM CDT) [facility] Sodium 142 135 - 145 mmol/L 07/11/2023 9:23 AM [facility] Comment:Reference intervals for this test were updated on 06/19/2023 to more accurately reflect our healthy population. There may be differences in the flagging of prior results with similar values performed with this method. Interpretation of those prior results can be made in the context of the updated reference intervals. Potassium 3.7 3.4 - 5.3 mmol/L 07/11/2023 9:23 AM [facility] Chloride 109(H) 98 - 107 mmol/L 07/11/2023 9:23 AM [facility] Carbon Dioxide (CO2) 22 22 - 29 mmol/L 07/11/2023 9:23 AM [facility] Anion Gap 11 7 - 15 mmol/L 07/11/2023 9:23 AM [facility] Urea Nitrogen 26.2(H) 8.0 - 23.0 mg/dL 07/11/2023 9:23 AM [facility] Creatinine 1.17 0.67 - 1.17 mg/dL 07/11/2023 9:23 AM [facility] GFR Estimate 69 >60 mL/min/1. 73m2 07/11/2023 9:23 AM [facility] Calcium 8.2(L) 8.8 - 10.2 mg/dL 07/11/2023 9:23 AM [facility] Glucose 123(H) 70 - 99 mg/dL 07/11/2023 9:23 AM CDT LABORATORY Blood STRUCTURE OF RIGHT UPPER LIMB / Unknown Venipuncture / Unknown 07/11/2023 8:37 AM CDT 07/11/2023 8:53 AM CDT Melody Moya PA-C LAB - BLOOD O RDERABLES LABORATORY [facility] Lab [address] 1st floor, [address] [place] [address], [facility] [phone] * (ABNORMAL) Glucose by meter (07/11/2023 6:14 AM CDT) GLUCOSE BY METER POCT 116(H) 70 - 99 mg/dL 07/11/2023 6:21 AM CDT LABORATORY POC Blood, Capillary BLOOD SPECIMEN / Unknown 07/11/2023 6:14 AM CDT 07/11/2023 6:21 AM CDT Arvin Carrera MD LAB - BEAK ER POCT Performing Organization Address City/[facility]/ZIP Co de Phone Number LABORATORY POC [facility] Lab [address] 1st floor, [address] [place] [address], [facility] [phone] * (ABNORMAL) Surgical Pathology Exam (07/10/2023 9:32 AM CDT) Case Report Surgical Pathology Report ? Case: [id number] ? Authorizing Provider: ??Arvin Carrera ? Collected: ? 07/10/2023 09:32 AM ? MD Joni ? Ordering Location: ? [facility] ?Received: ?07/10/2023 01:00 PM ? [facility] [...] vesicles, radical prostatectomy: -Prostatic adenocarcinoma, acinar type, Rochelle's grade 3+3 = 6, grade group is [...] display a homogenous pale-truong, lobulated cut surface. Tax Associate sections of the specimen are submitted in [...] No discrete tumor nodules are noted grossly. Tax Associate sections including the entire posterior aspect are [...] component of this testing was completed at [facility] 07/11/2023 3:19 PM CDT LABORATORY [...] MD LAB - BEAK ER AP LABORATORY [facility] Acute Care Lab [address] Lab (1st floor, no room number) [place] [address], [place] [phone] LABORATORY [facility] Lab [address] 1st floor, Room [address] [place] [address], [place] [phone] * Creatinine (07/10/2023 6:54 AM CDT) Creatinine 1.06 0.67 - 1.17 mg/dL 07/10/2023 1:43 PM CDT LABORATORY GFR Estimate 77 >60 mL/min/1.73 m2 07/10/2023 1:43 PM CDT LABORATORY Blood STRUCTURE OF RIGHT HAND / Unknown Venipuncture / Unknown 07/10/2023 6:54 AM CDT 07/10/2023 7:05 AM CDT Melody Moya PA-C LAB - BLOOD O RDERABLES LABORATORY [facility] Lab [address] 1st floor, Room [address] [place] [address], [place] [phone] * Extra Blood Bank Purple Top Tube (07/10/2023 6:54 AM CDT) Hold Specimen JIC 07/10/2023 8:16 AM CDT LABORATORY Blood STRUCTURE OF RIGHT HAND / Unknown Venipuncture / Unknown 07/10/2023 6:54 AM CDT 07/10/2023 7:15 AM CDT Arvin Carrera MD LAB - BLOO D ORDERABLES LABORATORY [facility] Lab [address] 1st floor, [address] [place] [address], [place] [phone] * Potassium (07/10/2023 6:54 AM CDT) Potassium 4.2 3.4 - 5.3 mmol/L 07/10/2023 7:25 AM CDT LABORATORY Blood STRUCTURE OF RIGHT HAND / Unknown Venipuncture / Unknown 07/10/2023 6:54 AM CDT 07/10/2023 7:05 AM CDT Royce Arnold DO LAB - BLOOD ORDER MICHAEL LABORATORY [facility] Lab [address] 1st floor, [address] [place] [address], [place] [phone] * Adult Type and Screen (07/10/2023 6:08 AM CDT) ABO/RH(D) A POS 07/10/2023 5:47 AM CDT BLOOD BANK Antibody Screen Negative Negative 07/10/2023 5:47 AM CDT BLOOD BANK SPECIMEN EXPIRATION DATE [id number] 07/10/2023 5:47 AM CDT BLOOD BANK Blood STRUCTURE OF LEFT WRIST REGION / Unknown Venipuncture / Unknown 07/10/2023 6:08 AM CDT 07/10/2023 6:13 AM CDT Manju Arreola PA-C LAB - BLOOD BAN K TEST ORDER BLOOD BANK [address] [place] [address], [place] * (ABNORMAL) Glucose (07/10/2023 6:08 AM CDT) Glucose 120(H) 70 - 99 mg/dL 07/10/2023 6:38 AM CDT LABORATORY Patient Fasting > 8hrs? Yes 07/10/2023 6:38 AM CDT LABORATORY Blood STRUCTURE OF LEFT WRIST REGION / Unknown Venipuncture / Unknown 07/10/2023 6:08 AM CDT 07/10/2023 6:13 AM CDT Royce Arnold DO LAB - BLOOD ORDER MICHAEL LABORATORY [facility] Lab [address] 1st floor, [address] [place] [address], [facility] [phone] * LAB RESULT - HIM SCAN (06/27/2023 [...] analgesic side effects. Hold while on IV FURNACE HAND or with regular IV opioid dosing. oxyCODONE (ROXICODONE) tablet 5 mg 5 mg, Oral, EVERY 4 HOURS PRN, moderate pain, Starting on Sun07/10/23 at 1447, Hold oral PRN dose for analgesic side effects. Notify provider to assess for uncontrolled pain or analgesic side effects. Hold while on IV FURNACE HAND or with regular IV opioid dosing. $Given [...] analgesic side effects. Hold while on IV FURNACE HAND or with regular IV opioid dosing. 1635 (See Alternative - Provider: Parmjit López RN) oxyCODONE (ROXICODONE) tablet 5 mg(Linked Group 3) 5 mg, Oral, EVERY 4 HOURS PRN, moderate pain, Starting on Sun07/10/23 at 1447, Hold oral PRN dose for analgesic side effects. Notify provider to assess for uncontrolled pain or analgesic side effects. Hold while on IV FURNACE HAND or with regular IV opioid dosing. 1635 [...] analgesic side effects. Hold while on IV FURNACE HAND or with regular IV opioid dosing. Or oxyCODONE (ROXICODONE) tablet 10 mgJump to med 10 mg, Oral, EVERY 4 HOURS PRN, severe pain, Starting on Sun07/10/23 at 1447, Hold oral PRN dose for analgesic side effects. Notify provider to assess for uncontrolled pain or analgesic side effects. Hold while on IV FURNACE HAND or with regular IV opioid dosing. Group [...] provider. documented in this encounter Care Teams Contract Preparer Relationship Specialty Start Date End Date No Ref-Primary, Physician PCP - General 07/10/23 documented as of this encounter
--- OUTSIDE RECORDS SUMMARY | 2023-10-29 07:13 | XMS_ITS | Encounter Summary ---
Author Name Unknown Organization [facility] Address [address] [place] [address] Care Team Providers Care Interface Designer Name Role Phone No Ref-Primary, Physician Primary Care Provider Reason for Visit * Auth/Cert (Routine) Specialty Diagnoses / Procedures Referred By Demario crawford Referred To Contact Surgery Diagnoses Prostate cancer (H) Prostate cancer (H) [C61] Procedures [place] LAPAROSCOPY, SURGICAL; W/ BILAT TOTAL PELVIC LYMPHADENECTOMY [place] LAPAROSCOPY, SURGICAL PROSTATECTOMY, RETROPUBIC RADICAL, W/NERVE SPARING ZZPR LAPS SURG [id number] SMPL STOT ROBOTIC ASSISTANCE ROBOTIC ASSISTED LAPAROSCOPIC PROSTATECTOMY AND PELVIC LYMPH NODE DISSECTION [facility] [address] [place] [address] Referral ID Status Reason Start Date Expiration Date Visits Re quested Visits Authorized [id number] 1 1 Encounter Details Date Type Department Care Team (Latest Contact Info) Description 07/10/2023 5:27 AM CDT - 07/11/2023 11:55 AM CDT Hospital Encounter [facility] General Surgery [address] [facility] [place] [address] Arvin Carrera MD [place] [facility] [address] [place] [address] Prostate cancer (H) (Primary Dx) [...] Mulligan PA-C - 07/11/2023 8:00 AM CDT [facility] Urology Progress Note Assessment & Plan Marco Antonio Watkins is a 67 year old male who was admitted on 07/10/2023. POD 1 s/p RALP w Dr. 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 Auth Provider Japanese Interpreter End Date aspirin 81 MG EC tablet [...] bilateral pelvic lymphadenectomy Surgeon: Arvin Carrera MD Guillotine Operator: Melody Moya PA-C Date of Procedure: 07/10/23 OPERATIVE INDICATION: Marco Antonio Watkins is a 67 year old male with prostate cancer. After understanding various management options he elected to undergo today's procedure. Clinical stage: [id number] PSA: 8.1 FINESSE: smooth MRI findings: 2.7 [...] Time out was called . An 18 [place] catheter was placed and the bladder was [...] on a double armed needle. An 18 [place] catheter was placed and the bladder irrigated well. A good watertight, tension free anastasmosis was obtained. Further inspection at this time showed no further bleeding. The string of the Endocatch was then brought out through the umbilical port site. The robot was then undocked. The laparoscopic ports were removed under vision and the 12 mm nutritional assistant port was closed with an 0 Vicryl using a Estimizeen device I slightly extended the supraumbilical incision [...] TO GO FOR SURGERY . MESSAGE TO [employer] TO FOLLOW UP AND TRY TO GET [...] Grimes RN - 07/11/2023 6:33 AM CDT [id number] POD#1 Robotic Radical Prostatectomy with bilateral pelvic [...] PA-C LAB - BLOOD O RDERABLES LABORATORY [facility] Acute Care Lab [address] 1st floor, [address] [place] [address], [facility] [phone] * (ABNORMAL) Basic metabolic panel (07/11/2023 8:37 AM CDT) [facility] Sodium 142 135 - 145 mmol/L 07/11/2023 9:23 AM [facility] Comment:Reference intervals for this test were updated on 06/19/2023 to more accurately reflect our healthy population. There may be differences in the flagging of prior results with similar values performed with this method. Interpretation of those prior results can be made in the context of the updated reference intervals. Potassium 3.7 3.4 - 5.3 mmol/L 07/11/2023 9:23 AM [facility] Chloride 109(H) 98 - 107 mmol/L 07/11/2023 9:23 AM T LABORATORY Carbon Dioxide (CO2) 22 22 - 29 mmol/L 07/11/2023 9:23 AM T LABORATORY Anion Gap 11 7 - 15 mmol/L 07/11/2023 9:23 AM [facility] Urea Nitrogen 26.2(H) 8.0 - 23.0 mg/dL 07/11/2023 9:23 AM T LABORATORY Creatinine 1.17 0.67 - 1.17 mg/dL 07/11/2023 9:23 AM [facility] GFR Estimate 69 >60 mL/min/1. 73m2 07/11/2023 9:23 AM T LABORATORY Calcium 8.2(L) 8.8 - 10.2 mg/dL 07/11/2023 9:23 AM [facility] Glucose 123(H) 70 - 99 mg/dL 07/11/2023 9:23 AM [facility] Blood STRUCTURE OF RIGHT UPPER LIMB / Unknown Venipuncture / Unknown 07/11/2023 8:37 AM CDT 07/11/2023 8:53 AM CDT Melody Moya PA-C LAB - BLOOD O RDERABLES LABORATORY [facility] Acute Care Lab [address] 1st floor, [address] [place] [address], [facility] [phone] * (ABNORMAL) Glucose by meter (07/11/2023 6:14 AM CDT) GLUCOSE BY METER POCT 116(H) 70 - 99 mg/dL 07/11/2023 6:21 AM CDT LABORATORY POC Blood, Capillary BLOOD SPECIMEN / Unknown 07/11/2023 6:14 AM CDT 07/11/2023 6:21 AM CDT Arvin Carrera MD LAB - BEAK ER POCT LABORATORY POC [facility] Lab [address] 1st floor, [address] [place] [address], [facility] [phone] * (ABNORMAL) Surgical Pathology Exam (07/10/2023 9:32 AM CDT) Case Report Surgical Pathology Report ? Case: [id number] ? Authorizing Provider: ??Arvin Carrera ? Collected: ? 07/10/2023 09:32 AM ? MD Joni ? Ordering Location: ? [facility] ?Received: ?07/10/2023 01:00 PM ? [facility] OR ? Pathologist: ? Yazmin Mchugh, [...] vesicles, radical prostatectomy: -Prostatic adenocarcinoma, acinar type, [place]'s grade 3+3 = 6, grade group is [...] Histologic Grade: ? Grade: ?Grade group 1 ([place] Score 3 + 3 = 6) ?? [...] display a homogenous pale-truong, lobulated cut surface. Sound Technician Supervisor sections of the specimen are submitted in [...] No discrete tumor nodules are noted grossly. Sound Technician Supervisor sections including the entire posterior aspect are [...] component of this testing was completed at [facility] 07/11/2023 3:19 PM CDT LABORATORY [...] Carrera MD LAB - GARY APARICIO LABORATORY [facility] Acute Care Lab [address] [facility] Lab (1st floor, no room number) [place] [address] [phone] LABORATORY [facility] Lab [address] 1st floor, [address] [place] [address], [place] [phone] * Creatinine (07/10/2023 6:54 AM CDT) Creatinine 1.06 0.67 - 1.17 mg/dL 07/10/2023 1:43 PM CDT LABORATORY GFR Estimate 77 >60 mL/min/1.73 m2 07/10/2023 1:43 PM CDT LABORATORY Blood STRUCTURE OF RIGHT HAND / Unknown Venipuncture / Unknown 07/10/2023 6:54 AM CDT 07/10/2023 7:05 AM CDT Melody Moya PA-C LAB - BLOOD O RDERABLES [facility] Lab [address] 1st floor, [address] [place] [address], [facility] [phone] * Extra Blood Bank Purple Top Tube (07/10/2023 6:54 AM CDT) [facility] Hold Specimen JIC 07/10/2023 8:16 AM CDT LABORATORY Blood STRUCTURE OF RIGHT HAND / Unknown Venipuncture / Unknown 07/10/2023 6:54 AM CDT 07/10/2023 7:15 AM CDT Arvin Carrera MD LAB - BLOO D ORDERABLES [facility] Lab [address] 1st floor, [address] [place] [address], [place] [phone] * Potassium (07/10/2023 6:54 AM CDT) Potassium 4.2 3.4 - 5.3 mmol/L 07/10/2023 7:25 AM CDT LABORATORY Blood STRUCTURE OF RIGHT HAND / Unknown Venipuncture / Unknown 07/10/2023 6:54 AM CDT 07/10/2023 7:05 AM CDT Royce Arnold DO LAB - BLOOD ORDER MICHAEL LABORATORY [facility] Lab [address] 1st floor, Room [address] [place] [address], [facility] [phone] * Adult Type and Screen (07/10/2023 6:08 AM CDT) ABO/RH(D) A POS 07/10/2023 5:47 AM CDT BLOOD BANK Antibody Screen Negative Negative 07/10/2023 5:47 AM CDT BLOOD BANK SPECIMEN EXPIRATION DATE [id number] 07/10/2023 5:47 AM CDT BLOOD BANK Blood STRUCTURE OF LEFT WRIST REGION / Unknown Venipuncture / Unknown 07/10/2023 6:08 AM CDT 07/10/2023 6:13 AM CDT Manju Arreola PA-C LAB - BLOOD BAN K TEST ORDER Performing Organization Address City/[facility]/ZIP Co de Phone Number BLOOD BANK [address] [place] [address], [facility] * (ABNORMAL) Glucose (07/10/2023 6:08 AM CDT) Glucose 120(H) 70 - 99 mg/dL 07/10/2023 6:38 AM CDT LABORATORY Patient Fasting > 8hrs? Yes 07/10/2023 6:38 AM CDT LABORATORY Blood STRUCTURE OF LEFT WRIST REGION / Unknown Venipuncture / Unknown 07/10/2023 6:08 AM CDT 07/10/2023 6:13 AM CDT Royce Arnold DO LAB - BLOOD ORDER MICHAEL LABORATORY [facility] Lab [address] 1st floor, [address] [place] [address], [facility] [phone] * LAB RESULT - HIM SCAN (06/27/2023 [...] analgesic side effects. Hold while on IV ANIMAL CYTOLOGIST or with regular IV opioid dosing. oxyCODONE (ROXICODONE) tablet 5 mg 5 mg, Oral, EVERY 4 HOURS PRN, moderate pain, Starting on Sun07/10/23 at 1447, Hold oral PRN dose for analgesic side effects. Notify provider to assess for uncontrolled pain or analgesic side effects. Hold while on IV ANIMAL CYTOLOGIST or with regular IV opioid dosing. $Given [...] ($New Bag - Provider: Mary Craig APRN HYDROSTATIC TESTER)[id number] ($New Bag - Provider: Mary Craig APRN [...] analgesic side effects. Hold while on IV ANIMAL CYTOLOGIST or with regular IV opioid dosing. 1635 (See Alternative - Provider: Parmjit López RN) oxyCODONE (ROXICODONE) tablet 5 mg(Linked Group 3) 5 mg, Oral, EVERY 4 HOURS PRN, moderate pain, Starting on Sun07/10/23 at 1447, Hold oral PRN dose for analgesic side effects. Notify provider to assess for uncontrolled pain or analgesic side effects. Hold while on IV ANIMAL CYTOLOGIST or with regular IV opioid dosing. 1635 [...] analgesic side effects. Hold while on IV ANIMAL CYTOLOGIST or with regular IV opioid dosing. Or oxyCODONE (ROXICODONE) tablet 10 mgJump to med 10 mg, Oral, EVERY 4 HOURS PRN, severe pain, Starting on Sun07/10/23 at 1447, Hold oral PRN dose for analgesic side effects. Notify provider to assess for uncontrolled pain or analgesic side effects. Hold while on IV ANIMAL CYTOLOGIST or with regular IV opioid dosing. Group [...] provider. documented in this encounter Care Teams Interface Designer Relationship Specialty Start Date End Date No Ref-Primary, Physician PCP - General 07/10/23 documented as of this encounter
--- OUTSIDE RECORDS SUMMARY | 2023-10-29 07:13 | XMS_ITS | Encounter Summary ---
Author Name Unknown Organization [facility] Address [address] [place] [address] Care Team Providers Care Wax Engraver Name Role Phone No Ref-Primary, Physician Primary [...] on filedocumented in this encounter Care Teams Wax Engraver Relationship Specialty Start Date End Date No Ref-Primary, Physician PCP - General 07/10/23 documented as of this encounter
--- OUTSIDE RECORDS SUMMARY | 2023-10-29 07:14 | XMS_ITS | Continuity of Care Document ---
Author Name Unknown Address [address] [place] [address] Phone [phone] Organization [facility], [facility] Address [address] [place] [address] Care Team Providers Care Master Craftsman Name Role Phone JUAN JOSE MOHAMUD Primary [...] 023 ryan [facility], [address], [place], [address], 09/06/2023 12:33:49 Referral None record ed. Procedures None record ed. Surgeries None record ed. Imaging None record ed. Medication Orders silden afil (pulmo nary hypert ension ) 20 mg tablet 2022 023 [id number], [address], [place], [address], 09/06/2023 12:33:50 Patient TargetsNo targets recorded. Patient InstructionsNo instructions recorded. Reason for Referral None Reported. Results Created Date Observation Date Name Description Value Unit Range Abnormal Flag LastModifiedBy Organization Detail LastModifiedTime 09/06/20 23 09/06/2023 PSA, serum or plasm a PSA <0.04 ng/ml 0-4.0 Not Available [facility] [address], [place], [address], 09/03/2023 14:26:12 Result Notes None recorded. 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 3 08:52:13 Erectile dysfunction Active 023 Arvin payne MD, PHD [address] [place] [address], [phone], [facility] 3 12:31:29 Problem Notes None recorded. Procedures Surgical History Date Name Laterality Status Provider Name and Address Organization Details Recorded Time 09/06/20 23 ROOM SERVICE ASSOCIATE/blood draw completed Antonieta farley [facility] 09/03/2023 14:25:52 03/02/20 23 Prostate Biopsy Procedure completed Chava Musa MD [address] [place] [address],[address], [address], [facility] 03/02/2023 14:55:39 03/02/20 23 URONAV completed Chava Musa MD [address] [place] [address],[address], [phone], [facility] 03/02/2023 10:01:17 01/25/20 23 Blood Draw/ROOM SERVICE ASSOCIATE/PSA RESULTS completed Chet Padron MD [address] [place] [address],[address], [place], [address], [facility] 01/24/2023 17:40:18 06/14/20 22 Prostate Biopsy Procedure completed Chet Padron MD [address] [place] [address],[facility] [address] [address], [facility] 06/14/2022 13:45:36 06/14/20 22 Rocephin/Ceftri axone completed Ingris farley, [facility] 06/14/2022 16:32:58 08/13/20 12 Biopsy of prostate completed Not Available [facility] 03/04/2020 20:49:39 08/13/20 12 Njx aa&/strd other pn/branch completed Not Available [facility] 03/04/2020 20:49:39 07/26/20 12 urine capacity measure completed Not Available [facility] 03/04/2020 20:49:39 Hernia Repair completed Mary farley, [facility] 08/23/2020 10:12:19 Colonoscopy completed Chet Padron MD [address] [place] [address],[address], [address], [facility] 01/24/2023 15:42:55 Imaging Results None recorded. Procedure Notes None recorded. Medical Equipment None Reported. Allergies Allergen ID Allergen Name Allergen Category Reaction Reaction Severity Criticality Documentation Date Start Date Code Code System Note Provider Name and Address Organization Details Recorded Time [id number] bee pollen environme nt,medica tion Not available Not available Not available 03/03/2020 52996 7 RxNorm Not Available [facility] 0 23:53:45 Medications Name Sig Start Date [...] completed Not Available Not Available Not Available [facility] COVID-19 Antigen Rapid Home Test kit USE DIRECTED 01/24 completed Not Available Not Available Not Available Vitals Date Recorded Body height Body mass index (BMI) Body weight Provider Name and Address Organization Details Last Updated DateTime 09/06/2023 172.72 cm 35.7 kg/m2 261019.21 g CADY Dumont [facility] 09/06/2023 12:00:10 Social History Question Answer Notes LastModified by Organizat ion Details LastModified Time Tobacco Smoking Status Former Smoker Not Available [facility] 03/04/2020 02:17:19 What Is Your Level Of Alcohol Consumption? Occasional [email or web address] Information not available 04/27/2023 How Many Times Per Week Do You Consume Alcohol? Less Than 1 Time Per Week [email or web address] Information not available 04/27/2023 What Is Your Level Of Caffeine Consumption? Moderate [email or web address] Information not available 04/27/2023 Do You Or Have You Ever Used E-cigarettes Or Vape? Never Used Electronic Cigarettes [email or web address] Information not available 08/23/2020 When Did You Quit Smoking? 17+yearssincel astcigarette [email or web address] Information not available 04/27/2023 Race White Information n ot available 03/04/2020 Marital Status Informati on not available 03/04/2020 What Was The Date Of Your Most Recent Tobacco Screening? 09/06/2023 [email or web address] Information not available 09/06/2023 Do You Use Any Illicit Or Recreational Drugs? No [email or web address] Information not available 04/27/2023 Has Tobacco Cessation Counseling Been Provided? No [email or web address] Information not available 04/27/2023 Do You Or Have You Ever Used Any Other Forms Of Tobacco Or Nicotine? No [email or web address] Information not available 04/27/2023 Sex: Male Functional Status None recorded. Mental Status None recorded. Family History Relationship Description Onset Age of this Age Resolved Age Notes Mother Leukemia Notes:Strokes:Father Asthm a:Daughter Depression:Father Diabetes:Grandmother Hypertension:Father Leukemia:Mother Hyperlipidemia:Father Thyroid problems:Sister Heart disease:Father Heart disease:Grandfather Cancer, colon:Grandmother Strokes:Mother Cancer, lung:Grandfather Medical History Condition Response Diabetes N Sexually Transmitted Infection N Bleeding Disorder N High Blood Pressure Y Kidney Stones Y High Cholesterol Y GERD/Acid Reflux Y Cancer Y Lung Disease N Depression N Immunizations Vaccine Type Date Status Provider Name and Address Organization Details Recorded Time COVID-19, mRNA, LNP-S, PF, 50 mcg/0.5 mL 08/12/2023 CADY Weldno [facility] 09/06/2023 12:00:18 influenza, recombinant, quadrivalent,injecta ble, preservative free 07/23/2020 completed Mar May null, [facility] 04/27/2023 08:30:29 Influenza vaccine, quadrivalent, adjuvanted 08/24/2021 completed Mar May null, [facility] 04/27/2023 08:30:30 COVID-19, mRNA, LNP-S, PF, 100 mcg/0.5mL dose or 50 mcg/0.25mL dose 11/24/2020 completed Mar May null, [facility] 04/27/2023 08:30:30 COVID-19, mRNA, LNP-S, PF, 100 mcg/0.5mL dose or 50 mcg/0.25mL dose 12/22/2020 completed Mar May null, [facility] 04/27/2023 08:30:30 COVID-19, mRNA, LNP-S, PF, 100 mcg/0.5mL dose or 50 mcg/0.25mL dose 08/07/2021 completed Mar May null, [facility] 04/27/2023 08:30:30 pneumococcal polysaccharide PPV23 02/05/2004 completed Mar May null, [facility] 04/27/2023 08:30:30 Tdap 12/16/2008 completed Mar May null, [facility] 04/27/2023 08:30:30 Novel [id number], all formulations 09/15/2009 completed Mar January null, [facility] 04/27/2023 08:30:30 Influenza, seasonal, injectable 06/08/2009 completed Mar May null, [facility] 04/27/2023 08:30:30 Influenza, seasonal, injectable 06/11/2012 [facility] 04/27/2023 08:30:30 Influenza, seasonal, injectable, preservative free 06/16/2011 completed Mar May null, [facility] 04/27/2023 08:30:30 Td (adult), 2 Lf tetanus toxoid, preservative free, adsorbed 02/05/2004 completed Mar May null, [facility] 04/27/2023 08:30:30 influenza, injectable, quadrivalent, preservative free 10/09/2016 completed Mar January martine [facility] 04/27/2023 08:30:30 influenza, injectable, quadrivalent, preservative free 09/15/2009 [facility] 08:30:30 Influenza vaccine, quadrivalent, adjuvanted 07/19/2022 [facility] 07/19/2023 17:53:51 COVID-19, mRNA, LNP-S, bivalent, PF, 50 mcg/0.5 mL or 25mcg/0.25 mL dose 07/19/2022 [facility] 07/19/2023 17:53:51 influenza, high-dose, quadrivalent 07/18/2023 completed Grisel Loza [facility] 08/20/2023 17:13:51 Past Encounters Encounter ID Performer Location Encounter Start Date Encounter Closed Date Diagnosis/Indication [id number] Arvin Carrera MD, PHD [facility] [address] [place] [address] 09/06/2023 11:53:58 09/19/2023 12:31:42 Malignant tumor of prostate Erectile dysfunction Health Concerns Section Related Observation LastModified by Organization Detai ls LastModified Time None Recorded Concern Status LastModified by Organization Details LastModified Time None Recorded Payers Encounter Date Sequence Insurance Name Policy Number Policy Hernandez Covered Member ID Hernandez Member ID Guarantor Name 09/06/2023 1 [place] [employer] Marco Antonio Watkins [id number] Marco Antonio Watkins 09/06/2023 2 [employer] (MEDICARE SUPPLEMENT) Marco Antonio Watkins [id number] Marco Antonio Watkins Notes Date Note Type [...] Results 09/06/23: <0.04 Arvin Carrera MD, PHD [address] [facility],[address], [address], [facility] 09/06/2023 12:35:00
--- OUTSIDE RECORDS SUMMARY | 2023-10-29 07:14 | XMS_ITS | Data Portability ---
Author Name Unknown Address [address] [place] [address] Phone [phone] Organization [facility], [facility] Address [address] [place] [address] Care Team Providers Care Button Tufter Name Role Phone JUAN JOSE MOHAMUD Primary [...] RALP + PLND on 07/10/23 for pT3aN0 [place]der[place] 3+3=6 prostate cancer (-SMS, -LVI, 0/4 LN). [...] September 03) with PSA with Dr. Carrera [email or web address] Not available 07/20/2023 11:28:29 09/06/2023 09/06/2023 68M s/p RALP + PLND on 07/10/23 for pT3aN0 [place] 3+3=6 prostate cancer (-SMS, -LVI, 0/4 LN). [...] 023 [email or web address] [facility], [address], [place], [address], 09/06/2023 12:33:49 PSA, serum or plasma 2022 023 [facility], [address], [place], [address], 01/24/2023 15:43:50 PSA, total, serum or plasma 2022 023 [email or web address] [facility], [address], [place], [address], 04/26/2023 16:41:41 Referral None record ed. Procedures None record ed. Surgeries None record ed. Imaging MRI, prosta te, w/wo contra st 2022 023 [email or web address] [facility], [address], [address], [place], [address], 01/26/2023 15:59:21 Medication Orders silden afil (pulmo nary hypert ension ) 20 mg tablet 2022 023 [id number], [address], [place], [address], 09/06/2023 12:33:50 ceftri axone 1 gram soluti on for inject ion 2022 023 [facility] [address] [place], [address], 03/15/2023 12:56:38 ceftri axone 1 gram soluti on for inject ion 2021 022 [email or web address] [id number], [address], [place], [address], 03/15/2023 12:56:38 Patient TargetsNo targets recorded. Patient Instructions Encounter Date Encounter Id Patient Instructions Last Modified By Organization Details Last Modified Time 03/15/2023 [id number] Of note a total of {{ 15 20 25 30* 35 40 45 50 55 60}} minutes was spent: preparing to see the patient by reviewing records, images, and laboratory data; obtaining/reviewing separately obtained history; performing physical examination, counseling and educating patient/family/human services care specialist; ordering appropriate medications, labs, imaging or procedures; [...] for a robotic-assisted laparoscopic approach utilizing the [employer] robotic system. He would have a catheter [...] inadvertent injury to adjacent organs, infection, bleeding, MT, thromboembolism, stroke or . The risk of erectile dysfunction is dependent on pre-operative level of function and the degree of nerve-sparing. Bilateral neurovascular bundle preservation is possible during the operation in order to maximize post-operative level of function. It also increases the chance of a positive surgical margin, especially if higher volume and higher Londonderry score disease is present. The risk of [...] the surgery Not available 03/15/2023 13:45:54 04/24/2022 [id number] Follow up on Exo Dx with Dr. Vito [email or web address] Not available 04/24/2022 14:23:48 Reason for Referral None Reported. Results Created Date Observation Date Name Description Value Unit Range Abnormal Flag LastModifiedBy Organization Detail LastModifiedTime 01/25/2001/24/2023 PSA, serum or plasm a PSA 8.1 ng/mL 0-4.0 Not Available [facility] [address], [place], [address], 01/24/2023 15:43:33 09/06/2009/06/2023 PSA, serum or plasm a PSA <0.04 ng/ml 0-4.0 Not Available [facility] [address], [place], [address], 09/03/2023 14:26:12 09/29/19 21 09/29/2020 MRI, prost ate, w/wo contr ast No observ ation record ed. [email or web address] [facility] [address], [place], [address], 10/04/2020 14:42:32 06/15/20 22 06/14/2022 US, prost ate No observ ation record ed. Not Available 06/28/2022 17:14:10 02/07/20 23 02/02/2023 MR arenas s prost ate wwo contr ast EXAM: MRI PELVIS PROSTA TE PROTOC OL LOCATI ON: [facility] DATE/T CHRIS: 023 2:58 PM CDT INDICA [...] reted by: DR. Rose Boyle M.D. [email or web address] [facility] - [address], [address], 02/20/2023 10:11:08 Result Notes None recorded. 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 Procedures Surgical History Date Name Laterality Status Provider Name and Address Organization Details Recorded Time 09/06/20 23 DEICER REPAIRER ELECTRIC/blood draw completed Antonieta farley [facility] 09/03/2023 14:25:52 03/02/20 23 Prostate Biopsy Procedure completed Chava Musa MD [address], [place], [address], [facility] 03/02/2023 14:55:39 03/02/20 23 URONAV completed Chava Musa MD [address] [place] [address],[address], [place], [address], [facility] 03/02/2023 10:01:17 01/25/20 23 Blood Draw/DEICER REPAIRER ELECTRIC/PSA RESULTS completed Chet Padron MD [address] [place] [address],[facility] [address], [place], [address], [facility] 01/24/2023 17:40:18 06/14/20 22 Prostate Biopsy Procedure completed Chet Padron MD [address] [place] [address],[address], [place], [address], [facility] 06/14/2022 13:45:36 06/14/20 22 [facility]ph[facility] 06/14/2022 16:32:58 08/13/20 12 Biopsy of prostate completed Not Available [facility] 03/04/2020 20:49:39 08/13/20 12 Njx aa&/strd other pn/branch completed Not Available [facility] 03/04/2020 20:49:39 07/26/20 12 urine capacity measure completed Not Available [facility] 03/04/2020 20:49:39 Hernia Repair completed Mary farley, [facility] 08/23/2020 10:12:19 Colonoscopy completed Chet Padron MD [address] [place] [address],[address], [place], [address], [facility] 01/24/2023 15:42:55 Imaging Results Imaging Date Name Status LastModified by Organiz [facility] Details LastModified Time 09/29/2020 MRI, prostate, w/wo contrast completed [facility] [address], [place], [address], 10/04/2020 14:42:32 06/14/2022 US, prostate completed Information not available 06/28/2022 17:14:10 02/02/2023 MR pelvis prostate wwo contrast completed [email or web address] [facility] - [address], [place], [address], 02/20/2023 10:11:08 Procedure Notes None recorded. Medical Equipment None Reported. Allergies Allergen ID Allergen Name Allergen Category Reaction Reaction Severity Criticality Documentation Date Start Date Code Code System Note Provider Name and Address Organization Details Recorded Time [id number] bee pollen environme nt,medica tion Not available Not available Not available 03/03/2020 47578 7 RxNorm Not Available [facility] 0 23:53:45 Medications Name Sig [...] completed Not Available Not Available Not Available [facility] COVID-19 Antigen Rapid Home Test kit USE DIRECTED 01/24 completed Not Available Not Available Not Available Vitals Date Recorded Body height Body mass index (BMI) Body weight Provider Name and Address Organization Details Last Updated DateTime 06/28/2022 172.72 cm 35.7 kg/m2 526199.21 g Ingris farley [facility] 06/28/2022 16:25:54 Date Recorded Body height Body mass index (BMI) Body weight Provider Name and Address Organization Details Last Updated DateTime 01/24/2023 172.72 cm 35.7 kg/m2 379881.21 g Ingris farley [facility] 01/24/2023 15:35:08 Date Recorded Body height Provider Name an d Address Organization Details Last Updated DateTime 03/02/2023 172.72 cm Paty farley [facility] 03/02/2023 14:30:06 Date Recorded Body height Body mass index (BMI) Body weight Provider Name and Address Organization Details Last Updated DateTime 03/15/2023 172.72 cm 35.7 kg/m2 919791.21 g Ingris farley [facility] 03/15/2023 12:56:31 Date Recorded Body height Body mass index (BMI) Body weight Provider Name and Address Organization Details Last Updated DateTime 04/27/2023 172.72 cm 35.7 kg/m2 186680.21 g Mar Christal [facility] 04/27/2023 08:30:22 Date Recorded Body height Provider Name an d Address Organization Details Last Updated DateTime 07/20/2023 172.72 cm Adriana issa [facility] 07/20/2023 10:42:52 Date Recorded Body height Body mass index (BMI) Body weight Provider Name and Address Organization Details Last Updated DateTime 09/06/2023 172.72 cm 35.7 kg/m2 932376.21 g Daryl Travis [facility] 09/06/2023 12:00:10 Date Recorded Body height Body mass index (BMI) Body weight Provider Name and Address Organization Details Last Updated DateTime 08/23/2020 172.72 cm 35.7 kg/m2 673190.21 g Mary Abdi [facility] 08/23/2020 10:09:14 Social History Question Answer Notes LastModified by Organizat ion Details LastModified Time Tobacco Smoking Status Former Smoker Not Available [facility] 03/04/2020 02:17:19 What Is Your Level Of Alcohol Consumption? Occasional [email or web address] Information not available 04/27/2023 How Many Times Per Week Do You Consume Alcohol? Less Than 1 Time Per Week [email or web address] Information not available 04/27/2023 What Is Your Level Of Caffeine Consumption? Moderate [email or web address] Information not available 04/27/2023 Do You Or Have You Ever Used E-cigarettes Or Vape? Never Used Electronic Cigarettes [email or web address] Information not available 08/23/2020 When Did You Quit Smoking? 16+yearssincel astcigarette [email or web address] Information not available 04/27/2023 Race White Information n ot available 03/04/2020 Marital Status Informati on not available 03/04/2020 What Was The Date Of Your Most Recent Tobacco Screening? 09/06/2023 [email or web address] Information not available 09/06/2023 Do You Use Any Illicit Or Recreational Drugs? No [email or web address] Information not available 04/27/2023 Has Tobacco Cessation Counseling Been Provided? No [email or web address] Information not available 04/27/2023 Do You Or Have You Ever Used Any Other Forms Of Tobacco Or Nicotine? No [email or web address] Information not available 04/27/2023 Sex: Male Functional [...] 50 mcg/0.5 mL 08/12/2023 completed Daryl farley [facility] 09/06/2023 12:00:18 influenza, recombinant, quadrivalent,injecta ble, preservative free 07/23/2020 completed Mar farley [facility] 04/27/2023 08:30:29 Influenza vaccine, quadrivalent, adjuvanted 08/24/2021 completed Mar farley, [facility] 04/27/2023 08:30:30 COVID-19, mRNA, LNP-S, PF, 100 mcg/0.5mL dose or 50 mcg/0.25mL dose 11/24/2020 completed Mar farley, [facility] 04/27/2023 08:30:30 COVID-19, mRNA, LNP-S, PF, 100 mcg/0.5mL dose or 50 mcg/0.25mL dose 12/22/2020 completed Mar farley [facility] 04/27/2023 08:30:30 COVID-19, mRNA, LNP-S, PF, 100 mcg/0.5mL dose or 50 mcg/0.25mL dose 08/07/2021 completed Mar farley, [facility] 04/27/2023 08:30:30 pneumococcal polysaccharide PPV23 02/05/2004 completed Mar farley, [facility] 04/27/2023 08:30:30 Tdap 12/16/2008 completed Mar January null, [facility] 04/27/2023 08:30:30 Novel [id number], all formulations 09/15/2009 completed Mar January null, [facility] 04/27/2023 08:30:30 Influenza, seasonal, injectable 06/08/2009 completed Mar January null, [facility] 04/27/2023 08:30:30 Influenza, seasonal, injectable 06/11/2012 completed Mar January null, [facility] 04/27/2023 08:30:30 Influenza, seasonal, injectable, preservative free 06/16/2011 completed Mar January null, [facility] 04/27/2023 08:30:30 Td (adult), 2 Lf tetanus toxoid, preservative free, adsorbed 02/05/2004 completed Mar January null, [facility] 04/27/2023 08:30:30 influenza, injectable, quadrivalent, preservative free 10/09/2016 completed Mar January null, [facility] 04/27/2023 08:30:30 influenza, injectable, quadrivalent, preservative free 09/15/2009 completed Mar January null, [facility] 04/27/2023 08:30:30 Influenza vaccine, quadrivalent, adjuvanted 07/19/2022 [facility] 17:53:51 COVID-19, mRNA, LNP-S, bivalent, PF, 50 mcg/0.5 mL or 25mcg/0.25 mL dose 07/19/2022 completed Freda Villalta null, [facility] 07/19/2023 17:53:51 influenza, high-dose, quadrivalent 07/18/2023 completed Grisel Loza null, [facility] 08/20/2023 17:13:51 Past Encounters Encounter ID Performer Location Encounter Start Date Encounter Closed Date Diagnosis/Indication [id number] Arvin Wallace MD [facility] [address] [facility] [place] [id number] 08/23/2020 10:07:08 08/26/2020 15:11:42 Prostate specific antigen above reference range [id number] Chet Padron MD [facility] [address] [place] [address] 04/24/2022 14:13:36 04/27/2022 03:54:13 Prostate specific antigen above reference range [id number] Chet Padron MD [facility] [address] [place] [address] 06/14/2022 12:23:31 06/16/2022 09:47:17 Prostate specific antigen above reference range [id number] Chet Padron MD [facility] [address] [place] [address] 06/28/2022 16:25:08 06/30/2022 09:22:29 Prostate specific antigen above reference range [id number] Chet Padron MD [facility] [address] [place] [address] 01/24/2023 14:58:35 01/26/2023 15:59:21 Prostate specific antigen above reference range Nocturia [id number] Chava Musa MD [facility] [address] [facility] [facility],[address] [place] [address] 03/02/2023 13:33:27 03/08/2023 13:01:50 Prostate specific antigen above reference range Nocturia Antibiotic prophylaxis indicated [id number] Chet Padron MD [facility] [address] [place] [address] 03/15/2023 12:25:39 03/19/2023 14:05:24 Prostate specific antigen above reference range Nocturia Malignant tumor of prostate [id number] Arvin Carrera MD, PHD [facility] [address] [place] [address] 04/27/2023 08:25:13 05/03/2023 14:38:56 Nocturia Malignant tumor of prostate [id number] Melody Moya PA-C [facility] [address] [place] [address] 07/20/2023 10:10:37 07/25/2023 14:55:55 Malignant tumor of prostate [id number] Arvin Carrera MD, PHD [facility] [address] [place] [address] 09/06/2023 11:53:58 09/19/2023 12:31:42 Malignant tumor of prostate Erectile dysfunction Health Concerns Section Related Observation LastModified by Organization Detai ls LastModified Time None Recorded Concern Status LastModified by Organization Details LastModified Time None Recorded Advance Directives Directive None Recorded Payers Encounter Date Sequence Insurance Name Policy Number Policy Hernandez Covered Member ID Hernandez Member ID Guarantor Name 09/06/2023 1 [place] [employer] Marco Antonio Cortez Roland [id number] Marco Antonio Cortez Roland 09/06/2023 2 [employer]UR[employer] (MEDICARE SUPPLEMENT) Marco Antonio Watkins [id number] Marco Antonio Dana Roland 07/20/2023 1 [place] [employer] Marco Antonio Dana Roland [id number] Marco Antonio Watkins 07/20/2023 2 [employer] (MEDICARE SUPPLEMENT) Marco Antonio Watkins [id number] Marco Antonio Watkins 04/27/2023 1 [place] [employer] Marco Antonio Dana Roland [id number] 5 Marco Antonio Watkins 04/27/2023 2 [employer] (MEDICARE SUPPLEMENT) Marco Antonio Watkins [id number] Marco Antonio Watkins 03/15/2023 1 [place] [employer] Marco Antonio Dana Roland [id number] 5 Marco Antonio Watkins 03/15/2023 2 [employer] (MEDICARE SUPPLEMENT) Marco Antonio Watkins [id number] Marco Antonio Watkins 03/02/2023 1 [place] [employer] Marco Antonio Watkins [id number] 5 Marco Antonio Watkins 03/02/2023 2 [employer] (MEDICARE SUPPLEMENT) Marco Antonio Watkins [id number] Marco Antonio Watkins 01/24/2023 1 [place] [employer] Marco Antonio Watkins [id number] 5 Marco Antonio Watkins 01/24/2023 2 [employer] (MEDICARE SUPPLEMENT) Marco Antonio Watkins [id number] Marco Antonio Watkins 06/28/2022 1 [place] [employer] Marco Antonio Watkins [id number] 5 Marco Antonio Watkins 06/28/2022 2 [employer] INSURANCE (MEDICARE SUPPLEMENT) Marco Antonio Watkins [id number] Marco Antonio Watkins 06/14/2022 1 [place] [employer] Marco Antonio Watkins [id number] 5 Marco Antonio Watkins 06/14/2022 2 CONT[employer] INSURANCE (MEDICARE SUPPLEMENT) Marco Antonio Watkins [id number] Marco Antonio Watkins 04/24/2022 1 [place] [employer] Marco Antonio Watkins [id number] 5 Marco Antonio Watkins 04/24/2022 2 [employer] INSURANCE (MEDICARE SUPPLEMENT) Marco Antonio Watkins [id number] Marco Antonio Watkins 08/23/2020 1 *SELF PAY* Wi seun Watkins Notes Date Note Type Note Provider Name and Address Organization Details Recorded Time 08/23/2020 text/html HPI Notes: New patient referred for elevated PSA of 4.13 on 07/21/2020 at [facility]. His prior PSA was 2.97 in [...] symptoms, nocturia x1-2. Arvin Wallace MD [address], [place], [address], [facility] 08/23/2020 10:37:22 06/14/2022 text/html HPI Notes: New patient referred for elevated PSA of 4.13 on 07/21/2020 at [facility]. His prior PSA was 2.97 in [...] ExoDx. All questions answered. Chet Padron MD [address] [place] [address],[address], [place], [address], [facility] 06/14/2022 23:59:41 06/28/2022 text/html HPI Notes: New patient referred for elevated PSA of 4.13 on 07/21/2020 at [facility]. His prior PSA was 2.97 in [...] coordinate their care. Chet Padron MD [address], [place], [address], [facility] 06/28/2022 17:26:38 01/24/2023 text/html HPI Notes: New patient referred for elevated PSA of 4.13 on 07/21/2020 at [facility]. His prior PSA was 2.97 in [...] last couple of days. Chet Padron MD [address] [place] [address],[address], [place], [address], [facility] 01/24/2023 17:42:14 03/02/2023 text/html HPI Notes: 67 yo male with history of elevated PSA and ELIER - follows with Dr. Padron. No Family Hx of prostate cancer. - TRUS bx - (2011) - negative - Dr. Sivla - TRUS bx - (06/14/22) - ELIER [...] enlarged lymph nodes Chava Musa MD [address], [place], [address], [facility] 03/02/2023 14:56:05 03/15/2023 text/html HPI Notes: New patient referred for elevated PSA of 4.13 on 07/21/2020 at [facility]. His prior PSA was 2.97 in [...] 3 lesion. Pathology reveals multiple cores of [place] 3+3 including the PIRADS 4 lesion in the anterior TZ. Seen today with his who provides some of the history. Chet Padron MD [address], [place], [address], [facility] 03/15/2023 13:46:30 04/27/2023 text/html HPI Notes: 67M w ith recently diagnosed prostate cancer. He has discussed options with Dr Padron and is most interested in surgery. PSA 8.1 (01/24/23) MRI (02/02/23): 34g, 2.7 cm PIRADS 4 midline anterior transitional zone, +/- EPE, -SVI, -LAD Biopsy (03/02/23): 3/ template cores up to Barbara 3+3=6 in 15%, MRI lesion Londonderry 3+3=6 in 60% Decipher 0.60 (Int risk) LUTS: FOS ok, noct x1 EF: 2 PMH: HTN, HL PSH: right IHR SocHx: Occ: CPA Tob: quit ~ 1999 EtOH: 1/day FamHx: federal aid coordinator- none Arvin Carrera MD, PHD [address] [place] [address],[address] [place] [address], [address], [facility] 04/27/2023 08:54:15 07/20/2023 text/html HPI Notes: 67M s /p RALP + PLND on 07/10/23 for pT3aN0 [place] 3+3=6 prostate cancer (-SMS, -LVI, 0/4 LN). [...] fever/chills. Started abx yesterday. Melody Moya PA-C [address] [place] [address],[address], [address], [facility] 07/20/2023 11:28:37 09/06/2023 text/html HPI Notes: [...] Results 09/06/23: <0.04 Arvin Carrera MD, PHD [address] [place] [address],[address], [place], [address], [facility] 09/06/2023 12:35:00
== END 2023-10-26 08:06 | disposition home or self-care (01) ==
LOC: NFLDREF 10-29 07:11
PROVIDERS: PCP Family Medicine; Referring Provider Family Medicine; Visit Provider Family Medicine
DX: I10 Essential (primary) hypertension (principal)
CPT/HCPCS: 82043; 82570

== ENCOUNTER 2024-12-03 08:38 | Outpatient (CLI) | payer MEDICARE, OTHER, SELFPAY | END 2024-12-03 08:39 | disposition home or self-care (01) | LOC: NFLDREF 12-05 08:49 | PROVIDERS: PCP Physician Assistant Medical; Referring Provider Physician Assistant Medical; Visit Provider Physician Assistant Medical | DX: I10 Essential (primary) hypertension (principal); E78.2 Mixed hyperlipidemia; E78.5 Hyperlipidemia, unspecified; E55.9 Vitamin D deficiency, unspecified; L70.0 Acne vulgaris; N52.8 Other male erectile dysfunction; E66.9 Obesity, unspecified | CPT/HCPCS: 80053; 80061; 82306; 84443 ==

== ENCOUNTER 2025-05-15 08:37 | Outpatient (CLI) | payer MEDICARE, SELFPAY | END 2025-05-15 08:38 | disposition home or self-care (01) | LOC: RAD 08:38 | PROVIDERS: PCP Physician Assistant Medical; Visit Provider Physician Assistant Medical | DX: R00.2 Palpitations (principal); I34.0 Nonrheumatic mitral (valve) insufficiency | CPT/HCPCS: 93306 ==

== ENCOUNTER 2025-08-25 13:59 | Outpatient (CLI) | payer MEDICARE, SELFPAY | END 2025-08-25 14:00 | disposition home or self-care (01) | LOC: FRMREF 13:59 | PROVIDERS: PCP Physician Assistant Medical; Visit Provider Physician Assistant Medical | DX: Z85.46 Personal history of malignant neoplasm of prostate (principal) | CPT/HCPCS: G0103 ==

== ENCOUNTER 2025-09-03 10:53 | Outpatient (CLI) | payer MEDICARE, SELFPAY ==
--- NOTE | 2025-09-03 11:15 | CRLHL7_ITS ---
For Patients: As a result of the Century Cures Act, medical imaging exams and procedure reports are released immediately into your electronic medical record. You may view this report before your referring provider. If you have questions, please contact your health care provider. Indication: Neoplasm of other specified sites Technique: Grayscale and color Doppler ultrasound of the left posterior axillary soft tissues performed. Comparison: None Findings: There is a circumscribed lobular heterogeneous mass in the subcutaneous fat which measures 4.1 x 2.1 x 4.2 cm. Peripheral color flow noted. Impression: Complex heterogeneous circumscribed mass in the left posterior axilla measures 4.1 x 2.1 x 4.2 cm. MRI with and without contrast recommended. Dictated by Alen Draper MD @ 09/03/2025 12:15:51 PM (Electronically Signed)
== END 2025-09-03 10:54 | disposition home or self-care (01) ==
LOC: US 10:54
PROVIDERS: PCP Physician Assistant Medical; Visit Provider Physician Assistant Medical
DX: D36.7 Benign neoplasm of other specified sites (principal); R22.32 Localized swelling, mass and lump, left upper limb
CPT/HCPCS: 76882